=== PATIENT | male | born 1955 | race Caucasian/White ===

== ENCOUNTER 2018-06-11 12:16 | Inpatient (IN) | payer OTHER ==
[2018-06-11] MEDS ORDERED: FUROSEMIDE 40 MG/4 ML VIAL ONE (13:19)
--- NOTE | 2018-06-11 13:41 | RAD REPORT ---
EXAM DESCRIPTION: USExtrem Venous W Compress Bil06/11/2018 1:30 pm CLINICAL HISTORY: Bilateral leg swelling COMPARISON: none FINDINGS: The common femoral, superficial femoral, popliteal and posterior tibial veins bilaterally are compressible and demonstrate augmentation. Doppler demonstrates good flow. IMPRESSION: No evidence of deep venous thrombosis involving either lower extremity.
--- NOTE | 2018-06-11 13:42 | RAD REPORT ---
EXAM DESCRIPTION: US - UPPER EXTREMITY VENOUS UNILATE - 06/11/2018 1:30 pm CLINICAL HISTORY: Right arm swelling COMPARISON: None FINDINGS: Right internal jugular, subclavian, axillary, basilic, brachial, cephalic, radial and ulna r veins demonstrate phasic signal and are compressible. Doppler demonstrates good flow IMPRESSION: No evidence of thrombus involving the right upper extremity
--- NOTE | 2018-06-11 14:13 | RAD REPORT ---
EXAM DESCRIPTION: Tram Single View06/11/2018 1:54 pm CLINICAL HISTORY: Shortness breath COMPARISON: 2017 FINDINGS: The right base is mildly hazy. Lungs are hyperaerated. Left lung appears clear.The heart is normal size IMPRESSION: Right base is mildly hazy which may indicate pneumonia
[2018-06-11 14:27] LABS: Protime INR 0.92
[2018-06-11 14:38] LABS: Absolute Lymphocytes (CBC) 0.7 K/uL (0.7-4.9); Absolute Monocytes 0.9 K/uL (0.1-1.3); Absolute Neutrophil 9.1 K/uL (1.8-8.0); Basophils % 0.3 % (0-1.3); Eosinophils % 1.1 % (0-4.4); Hematocrit 42.3 % (39.6-49.0); Lymphocytes % 6.7 % (15.3-44.8); MCH 29.3 pg (27.0-35.0); MCV 91.6 fL (80-100); Monocytes % 8.5 % (3.3-12.3); RBC Red Blood Cell Count 4.62 M/uL (4.33-5.43)
[2018-06-11] MEDS ORDERED: CEFTRIAXONE/SWI 1gm 1 GM/10 ML SYR ONE (14:39)
[2018-06-11 14:42] LABS: ALT/SGPT 21 U/L (12-78); AST/SGOT 13 U/L (15-37); Albumin 3.5 g/dL (3.4-5.0); Alkaline Phosphatase 76 U/L (45-117); BUN Blood Urea Nitrogen 17 mg/dL (7-18); Bilirubin Direct 0.1 mg/dL (0-0.2); Bilirubin Total 0.3 mg/dL (0.2-1.0); Glucose Level 125 mg/dL (74-106); NT PRO-BNP 102 pg/mL (<125); Potassium 4.4 mmol/L (3.5-5.1); Protein, Total 7.2 g/dL (6.4-8.2); Sodium Level 139 mmol/L (136-145); Troponin (Emerg Dept Use Only) < 0.02 ng/mL (0.0-0.045)
[2018-06-11 14:43] LABS: Bicarbonate 41 mmol/L (21-32)
[2018-06-11 15:01] LABS: Arterial Blood Carboxyhemoglob 2.8 % (0-1.5); Blood Gas Oxyhemoglobin 91.6 % (94-97); Blood O2 Saturation 95.4 % (92-98.5)
--- NOTE | 2018-06-11 15:15 | ER ---
Nurse's Notes [facility] Name: Monster Spear Age: 62 yrs Sex: Male : 1955 Arrival Date: 06/11/2018 Time: 12:27 Bed 19 Private MD: Diagnosis: Pneumonia, unspecified organism;Acute combined systolic (congestive) and diastolic (congestive) heart failure Presentation: 06/11 12:32 Presenting complaint: EMS states: increased shortness of breath, pedal edema and ss fatigue over the past few days, much worse this morning. Denies fever. Pt also reports weight gain of 5 lbs a month/ 6 months. Transition of care: patient was not received from another setting of care. Onset of symptoms was June 11, 2018. Risk Assessment: Do you want to hurt yourself or someone else? Patient reports no desire to harm self or others. Initial Sepsis Screen: Does the patient meet any 2 criteria? RR > 20 per min. HR > 90 bpm. Does the patient have a suspected source of infection? No. Patient's initial sepsis screen is negative. Care prior to arrival: SEE EMS report. 12:32 Method Of Arrival: EMS: [facility] 12:32 Acuity: ANNABELLA 3 ss Historical: - Allergies: 12:35 No Known Allergies; ss - Home Meds: 15:36 finasteride oral oral [Active]; tamsulosin 0.4 mg oral cp24 [Active]; [place] 7.5-325 mg em Oral tab 1 tab every 6 hours [Active]; Xanax 1 mg Oral tab [Active]; tizanidine 4 mg oral tab [Active]; losartan 100 mg oral tab [Active]; Ventolin HFA 90 mcg/actuation Nebulizer HFAA [Active]; prednisone 10 mg Oral tab 1 tab once daily [Active]; Singulair Oral [Active]; aspirin 81 mg oral chew [Active]; - PMHx: 12:35 Anxiety; COPD; ss - PSHx: 12:35 Appendectomy; ss - Immunization history:: Adult Immunizations up to date. - Social history:: Smoking status: Patient uses tobacco products, chewing tobacco. - Ebola Screening: : Patient denies exposure to infectious person Patient denies travel to an Ebola-affected area in the 21 days before illness onset. Screenin:02 Abuse screen: Denies threats or abuse. Nutritional screening: No deficits noted. em Tuberculosis screening: No symptoms or risk factors identified. Fall Risk None identified. Assessment: 12:42 General: Appears in no apparent distress. uncomfortable, Behavior is calm, cooperative. em Pain: Complains of pain in back Pain currently is 6 out of 10 on a pain scale. Neuro: Level of Consciousness is awake, alert, obeys commands, Oriented to person, place, time, situation. Cardiovascular: Denies chest pain, Edema pitting to right upper arm, right forearm, right wrist, left ankle, left foot, right ankle and right foot Rhythm is regular. Respiratory: Airway is patent Respiratory effort is even, unlabored, Respiratory pattern is regular, symmetrical, Breath sounds are diminished bilaterally. the patient has mild shortness of breath. GI: Abdomen is round non-distended, Bowel sounds present X 4 quads. Patient currently denies nausea, vomiting. : No signs and/or symptoms were reported regarding the genitourinary system. EENT: No signs and/or symptoms were reported regarding the EENT system. Derm: Skin is intact, Skin is pink, warm \T\ dry. Musculoskeletal: Capillary refill < 3 seconds, Range of motion: intact in all extremities. 13:00 General: The previous assessment is accurate, call light remains within reach.. ss 13:40 Reassessment: Patient appears in no apparent distress at this time. Patient and/or em family updated on plan of care and expected duration. Pain level reassessed. Patient is alert, oriented x 3, equal unlabored respirations, skin warm/dry/pink. 14:30 Reassessment: Patient appears in no apparent distress at this time. Patient and/or em family updated on plan of care and expected duration. Pain level reassessed. Patient is alert, oriented x 3, equal unlabored respirations, skin warm/dry/pink. request some pain medication for his back. 15:30 Reassessment: Patient appears in no apparent distress at this time. Patient and/or em family updated on plan of care and expected duration. Pain level reassessed. Patient is alert, oriented x 3, equal unlabored respirations, skin warm/dry/pink. RT at bedside setting up BIPAP. 16:22 Reassessment: Patient appears in no apparent distress at this time. Patient and/or em family updated on plan of care and expected duration. Pain level reassessed. Patient is alert, oriented x 3, equal unlabored respirations, skin warm/dry/pink. rates pain 6/10 Patient states feeling better. Patient states symptoms have improved. Vital Signs: 12:35 BP 121 / 72; Pulse 110; Resp 16; Temp 98.0(O); Pulse Ox 95% on 3 lpm NC; Weight 113.4 ss kg; Height 5 ft. 9 in. (175.26 cm); Pain 0/10; 12:35 BP 135 / 76; Pulse 92; Resp 18; Pulse Ox 95% on 2 lpm NC; mh5 13:00 BP 118 / 74; Pulse 74; Resp 20; Pulse Ox 94% on 2 lpm NC; mh5 14:00 BP 162 / 96; Pulse 74; Resp 18; Pulse Ox 96% on 2 lpm NC; mh5 15:07 BP 142 / 83; Pulse 97; Resp 18; Pulse Ox 99% on 2 lpm NC; mh5 16:12 BP 138 / 88; Pulse 102; Resp 20; Pulse Ox 97% on 35% BiPAP; Pain 6/10; em 12:35 Body Mass Index 36.92 (113.40 kg, 175.26 cm) ss ED Course: 12:27 Patient arrived in ED. em 12:28 Berto Armstrong NP is PHCP. pm1 12:28 Getachew Tilley MD is Attending Physician. pm1 12:34 Triage completed. ss 12:35 Arm band placed on right wrist. ss 12:49 Trevon Campo LVN is Primary Nurse. em 13:02 Patient has correct armband on for positive identification. Placed in gown. Bed in low em position. Call light in reach. Side rails up X2. 13:04 EKG done, by lawn technician. reviewed by Getachew Tilley MD. tc 13:31 Extrem Venous W Compression Rob US In Process Unspecified. EDMS 13:31 UPPER EXTREMITY VENOUS UNILATE In Process Unspecified. EDMS 13:53 X-ray completed. Portable x-ray completed in exam room. Patient tolerated procedure ml well. 13:53 XRAY Chest (1 view) In Process Unspecified. EDMS 14:00 No provider procedures requiring assistance completed. Initial lab(s) drawn, by me, em sent to lab. Inserted saline lock: 20 gauge in left forearm, using aseptic technique. Blood collected. 14:45 First set of blood cultures drawn by hi, Second set of blood cultures drawn by hi, by 3 venipuncture 23G to right ac. 15:12 Jadiel Rivera DO is Hospitalizing Provider. pm1 16:07 Repeat lab(s) drawn. by hi, sent to lab. Flu and/or RSV swab sent to lab. 5 16:08 Flu Sent. 5 16:08 Lactate Sent. 5 16:08 Procalcitonin Sent. 5 16:39 Patient admitted, IV remains in place. em Administered Medications: 13:48 Drug: Lasix 40 mg Route: IVP; Site: left forearm; ss 15:00 Follow up: Response: No adverse reaction em 15:05 Drug: Rocephin 1 grams Route: IV; Rate: calculated rate; Site: left forearm; ss 16:10 Follow up: Response: No adverse reaction; IV Status: Completed infusion; IV Intake: 10mlem 15:20 Drug: Xopenex (3) 1.25 mg Route: Inhalation; em 15:57 Drug: SOLU-Medrol 125 mg Route: IVP; Site: left forearm; ss 16:10 Follow up: Response: No adverse reaction em 15:58 Drug: AZITHromycin 500 mg Route: IVPB; Infused Over: 1 hrs; Site: left forearm; em Intake: 16:10 IV: 10ml; Total: 10ml. em Outcome: 15:14 Decision to Hospitalize by Provider. pm1 16:38 Admitted to [facility] accompanied by [facility], via wheelchair, room 408, with oxygen, with em chart, Report called to CHELA Braga 16:38 Condition: good 16:38 Instructed on the need for admit, Demonstrated understanding of follow-up care. 16:52 Patient left the ED. em Signatures: Dispatcher [employer] EDMS Trevon Campo, FIRE LIEUTENANT FIRE LIEUTENANT Alicja Alvarado Shelby, RN RN Ivory Severino, afloat cryptologic manager EKG Ttc Berto Armstrong, JOSE MEATCUTTER pm1 Yancy Hardy [facility] Edith Reid 3 Corrections: (The following items were deleted from the chart) 12:37 12:35 BP 121 / 72; Pulse 110bpm; Resp 16bpm; Pulse Ox 95%; Temp 98.0F Oral; 113.4 kg; ss Height 5 ft. 9 in.; BMI: 36.9; Pain 0/10; ss
--- NOTE | 2018-06-11 15:16 | EDPHYS ---
Physician Documentation [facility] Name: Monster Spear Age: 62 yrs Sex: Male : 1955 Arrival Date: 06/11/2018 Time: 12:27 Bed 19 Private MD: BRITTANY Physician Getachew Tilley HPI: 06/11 12:40 This 62 yrs old Male presents to ER via EMS with complaints of Shortness Of pm1 Breath. 12:40 The patient has shortness of breath at rest. Onset: The symptoms/episode began/occurred pm1 Onset: The symptoms/episode began/occurred 1 week(s) ago. Duration: The symptoms are chronic, are continuous, and are steadily getting worse. Associated signs and symptoms: Pertinent positives: productive cough, Pertinent negatives: chest pain, fever, nausea, vomiting. Severity of symptoms: in the emergency department the symptoms are worse Pain is currently a 0 / 10. The patient has been recently seen by a physician: the patient's primary care provider, Dr. Car with similar presenting complaints, and seen by Dr. Euceda for possible urinary retention. Patient presenting to the ER with complaints of shortness of breath for the past 6 months that has progressively gotten worse over the past week. Patient reports 5 pound weight gain per month over the past 6 months. Hx of COPD and uses 3 L NC at home. Saw his PCP Dr. Car 2 days ago for the same shortness of breath and weight gain and was prescribed Lasix 20 mg PO daily. On the first day of Lasix he urinated fine but yesterday he had some difficulty urinating. Saw Dr Euceda and had an ultrasound yesterday. Bladder was not distended and prostate was normal. Historical: - Allergies: 12:35 No Known Allergies; ss - Home Meds: 15:36 finasteride oral oral [Active]; tamsulosin 0.4 mg oral cp24 [Active]; [place] 7.5-325 mg em Oral tab 1 tab every 6 hours [Active]; Xanax 1 mg Oral tab [Active]; tizanidine 4 mg oral tab [Active]; losartan 100 mg oral tab [Active]; Ventolin HFA 90 mcg/actuation Nebulizer HFAA [Active]; prednisone 10 mg Oral tab 1 tab once daily [Active]; Singulair Oral [Active]; aspirin 81 mg oral chew [Active]; - PMHx: 12:35 Anxiety; COPD; ss - PSHx: 12:35 Appendectomy; ss - Immunization history:: Adult Immunizations up to date. - Social history:: Smoking status: Patient uses tobacco products, chewing tobacco. - Ebola Screening: : Patient denies exposure to infectious person Patient denies travel to an Ebola-affected area in the 21 days before illness onset. ROS: 12:40 Constitutional: Negative for fever, chills, and weight loss, Eyes: Negative for injury, pm1 pain, redness, and discharge, ENT: Negative for injury, pain, and discharge, Neck: Negative for injury, pain, and swelling, Cardiovascular: Negative for chest pain, palpitations, and edema. 12:40 Abdomen/GI: Negative for abdominal pain, nausea, vomiting, diarrhea, and constipation. 12:40 : Negative for injury, bleeding, discharge, and swelling, MS/Extremity: Negative for injury and deformity, Skin: Negative for injury, rash, and discoloration. 12:40 Respiratory: Positive for cough, with white sputum, shortness of breath. 12:40 Back: Positive for chronic low back pain. Patient takes 7.5 hydrocodone prn for pain. Exam: 12:40 Constitutional: This is a well developed, well nourished patient who is awake, alert, pm1 and in no acute distress. Head/Face: Normocephalic, atraumatic. Eyes: Pupils equal round and reactive to light, extra-ocular motions intact. Lids and lashes normal. Conjunctiva and sclera are non-icteric and not injected. Cornea within normal limits. Periorbital areas with no swelling, redness, or edema. ENT: Nares patent. No nasal discharge, no septal abnormalities noted. Tympanic membranes are normal and external auditory canals are clear. Oropharynx with no redness, swelling, or masses, exudates, or evidence of obstruction, uvula midline. Mucous membranes moist. Neck: Trachea midline, no thyromegaly or masses palpated, and no cervical lymphadenopathy. Supple, full range of motion without nuchal rigidity, or vertebral point tenderness. No Meningismus. Chest/axilla: Normal chest wall appearance and motion. Nontender with no deformity. No lesions are appreciated. Abdomen/GI: Soft, non-tender, with normal bowel sounds. No distension or tympany. No guarding or rebound. No evidence of tenderness throughout. 12:40 Back: No spinal tenderness. No costovertebral tenderness. Full range of motion. Skin: Warm, dry with normal turgor. Normal color with no rashes, no lesions, and no evidence of cellulitis. MS/ Extremity: Pulses equal, no cyanosis. Neurovascular intact. Full, normal range of motion. Neuro: Awake and alert, GCS 15, oriented to person, place, time, and situation. Cranial nerves II-XII grossly intact. Motor strength 5/5 in all extremities. Sensory grossly intact. Cerebellar exam normal. Normal gait. 12:40 Cardiovascular: Rate: normal, Rhythm: regular, Pulses: no pulse deficits are appreciated, Heart sounds: normal, Edema: 2+ edema to level of right upper arm, right forearm, left midcalf and right midcalf. 12:40 Respiratory: the patient does not display signs of respiratory distress, Breath sounds: decreased breath sounds, are located in both bases. Vital Signs: 12:35 BP 121 / 72; Pulse 110; Resp 16; Temp 98.0(O); Pulse Ox 95% on 3 lpm NC; Weight 113.4 ss kg; Height 5 ft. 9 in. (175.26 cm); Pain 0/10; 12:35 BP 135 / 76; Pulse 92; Resp 18; Pulse Ox 95% on 2 lpm NC; mh5 13:00 BP 118 / 74; Pulse 74; Resp 20; Pulse Ox 94% on 2 lpm NC; mh5 14:00 BP 162 / 96; Pulse 74; Resp 18; Pulse Ox 96% on 2 lpm NC; mh5 15:07 BP 142 / 83; Pulse 97; Resp 18; Pulse Ox 99% on 2 lpm NC; mh5 16:12 BP 138 / 88; Pulse 102; Resp 20; Pulse Ox 97% on 35% BiPAP; Pain 6/10; em 12:35 Body Mass Index 36.92 (113.40 kg, 175.26 cm) ss MDM: 12:28 Patient medically screened. pm1 15:08 Physician consultation: Getachew Tilley MD Reviewed ABG results - Recommended bipap, pm1 breathing treatments, steroids, and antibiotics. 15:11 Data reviewed: vital signs. Data interpreted: Pulse oximetry: on room air is 99 %. pm1 Interpretation: normal. Counseling: I had a detailed discussion with the patient and/or guardian regarding: the historical points, exam findings, and any diagnostic results supporting the discharge/admit diagnosis, lab results, radiology results, the need for further work-up and treatment in the hospital. 15:30 Physician consultation: Jadiel Rivera DO was called at 15:30, was contacted at 15:30, pm1 regarding admission, patient's condition, in the emergency department to see patient at 15:30. 06/11 12:36 Order name: Basic Metabolic Panel; Complete Time: 15:10 pm1 06/11 12:36 Order name: CBC with Diff; Complete Time: 15:10 pm1 06/11 12:36 Order name: LFT's; Complete Time: 15:10 pm1 06/11 12:36 Order name: Magnesium; Complete Time: 15:10 pm1 06/11 12:36 Order name: NT PRO-BNP; Complete Time: 15:10 pm1 06/11 12:36 Order name: PT-INR; Complete Time: 14:43 pm1 06/11 12:36 Order name: Troponin (emerg Dept Use Only); Complete Time: 15:10 pm1 06/11 14:19 Order name: Blood Culture Adult (2) pm1 06/11 14:43 Order name: ABG; Complete Time: 16:16 pm1 06/11 15:29 Order name: Procalcitonin pm1 06/11 15:29 Order name: Lactate pm1 06/11 15:33 Order name: Flu pm1 06/11 16:34 Order name: Blood Culture [facility] 06/11 16:44 Order name: T4 Free EDWI 06/11 12:36 Order name: XRAY Chest (1 view); Complete Time: 14:18 pm1 06/11 12:36 Order name: EKG; Complete Time: 12:38 pm1 06/11 12:36 Order name: Cardiac monitoring; Complete Time: 14:22 pm1 06/11 12:36 Order name: EKG - Nurse/Tech; Complete Time: 12:49 pm1 06/11 12:36 Order name: IV Saline Lock; Complete Time: 12:49 pm1 06/11 12:36 Order name: Labs collected and sent; Complete Time: 12:49 pm1 06/11 12:39 Order name: Extrem Venous W Compression Rob US; Complete Time: 14:18 pm1 06/11 12:43 Order name: UPPER EXTREMITY VENOUS UNILATE; Complete Time: 14:18 EDWI 06/11 15:08 Order name: BIPAP pm1 06/11 16:44 Order name: Thyroid Stimulating Hormone EDWI 06/11 12:36 Order name: O2 Per Protocol; Complete Time: 12:49 pm1 06/11 12:36 Order name: O2 Sat Monitoring; Complete Time: 12:49 pm1 06/11 12:36 Order name: Urine Dipstick-Ancillary (obtain specimen); Complete Time: 16:14 pm1 Administered Medications: 13:48 Drug: Lasix 40 mg Route: IVP; Site: left forearm; ss 15:00 Follow up: Response: No adverse reaction em 15:05 Drug: Rocephin 1 grams Route: IV; Rate: calculated rate; Site: left forearm; ss 16:10 Follow up: Response: No adverse reaction; IV Status: Completed infusion; IV Intake: 10mlem 15:20 Drug: Xopenex (3) 1.25 mg Route: Inhalation; em 15:57 Drug: SOLU-Medrol 125 mg Route: IVP; Site: left forearm; ss 16:10 Follow up: Response: No adverse reaction em 15:58 Drug: AZITHromycin 500 mg Route: IVPB; Infused Over: 1 hrs; Site: left forearm; em Disposition: 06/11/18 15:14 Hospitalization ordered by Jadiel Rivera for Inpatient Admission. Preliminary diagnosis are Acute combined systolic (congestive) and diastolic (congestive) heart failure, Pneumonia, unspecified organism. - Bed requested for Telemetry/MedSurg (Inpatient). - Status is Inpatient Admission. em - Condition is Stable. - Problem is new. - Symptoms have improved. UTI on Admission? No Addendum: 06/14/2018 06:55 Co-signature as Attending Physician, Getachew Tilley MD I agree with the assessment and c duffy plan of care. Signatures: Dispatcher [employer] Soraya Connors, RN Getachew Burdick MD MD cha Munoz, Edgar, PAINTER AND PAPERHANGER APPRENTICE PAINTER AND PAPERHANGER APPRENTICE em Shanel Davis RN RN ss Marinas, Patrick, GOAL UMPIRE GOAL UMPIRE pm1 Corrections: (The following items were deleted from the chart) 06/11 12:43 12:40 Extremity Venous Uni [email or web address] ordered. EDMS EDMS 16:04 15:14 Hospitalization Ordered by Jadiel Rivera DO for Inpatient Admission. Preliminary dw diagnosis is Acute combined systolic (congestive) and diastolic (congestive) heart failurePneumonia, unspecified organism. Bed requested for Telemetry/MedSurg (Inpatient). Status is Inpatient Admission. Condition is Stable. Problem is new. Symptoms have improved. UTI on Admission? No. pm1 16:52 16:04 06/11/2018 15:14 Hospitalization Ordered by Jadiel Rivera DO for Inpatient em Admission. Preliminary diagnosis is Acute combined systolic (congestive) and diastolic (congestive) heart failurePneumonia, unspecified organism. Bed requested for Telemetry/MedSurg (Inpatient). Status is Inpatient Admission. Condition is Stable. Problem is new. Symptoms have improved. UTI on Admission? No. dw
[2018-06-11] MEDS ORDERED: HYDROCODONE/APAP 10/325 TAB ONE (15:26)
[2018-06-11] MEDS ORDERED: LEVALBUTEROL 1.25 MG/3 ML NEB ONE (15:28)
[2018-06-11] MEDS ORDERED: ACETAMINOPHEN 500 MG TAB PO PRN (15:50)
[2018-06-11] MEDS ORDERED: ONDANSETRON 4 MG/2 ML VIAL IV PRN (15:50)
[2018-06-11] MEDS ORDERED: HYDRALAZINE HCL 20 MG/ML VIAL IV PRN (15:50)
[2018-06-11] MEDS ORDERED: ALPRAZOLAM 0.5 MG TABLET PO PRN (15:50)
[2018-06-11] MEDS ORDERED: METHYLPREDNISOLONE 125 MG INJ ONE (15:53)
[2018-06-11] MEDS ORDERED: AZITHROMYCIN 500 MG/250 ML BAG ONE (15:54)
--- NOTE | 2018-06-11 16:07 | P.HP ---
Certification for Inpatient Patient admitted to: Inpatient With expected LOS: >2 Midnights Patient will require the following post-hospital care: None Practitioner: I am a practitioner with admitting privileges, knowledge of patient current condition, hospital course, and medical plan of care. Services: Services provided to patient in accordance with Admission requirements found in Title 42 Section 412.3 of the Code of Federal Regulations Patient History Date of Service: 06/11/18 Primary Care Provider: Dr. Sexton; Pulmonary-Dr. Callahan; Card-Dr. Robert, Urology-Dr. Euceda Reason for admission: Shortness of breath, edema History of Present Illness: 62-year-old male presented to the emergency room with increasing shortness of breath and edema the extremities. Patient has reported increasing shortness of breath over the last several days. He also reports increasing edema for the last week. He saw his PCP earlier in the week. He was given Lasix. He saw some improvement. He also saw his urologist the other day. He was started on medication for BPH. Increasing edema, weight gain, and shortness of breath persisted. Patient came to the ER for further evaluation. Patient with history of COPD-steroid dependent, BPH, hypertension, obstructive sleep apnea non compliant with CPAP, back pain, anxiety. In the ER patient evaluated. Patient was found to be hypercapnic. Bicarb is 41. White count 11, hemoglobin 13.5, sodium 139, potassium 4.4, platelet count 161. Chest x-ray showed possible middle lobe pneumonia. Edema to the lower extremities sores noted. Troponin less than 0.02. Patient given Lasix in the emergency room. Venous Doppler to the lower extremities bilateral unremarkable. Patient admitted for further evaluation. When I saw the patient ER, he was on BiPAP. He appeared comfortable. Patient reports that he still dips tobacco. He is non compliant with his CPAP machine. Patient takes multiple medications. Allergies No Known Allergies Allergy (Unverified 04/24/17 18:11) Home medications list reviewed: Yes Home Medications: ALPRAZolam [Alprazolam] 1 tab PO BID 04/24/17 Fluticasone [Flonase 50MCG Nasal [place]*] 1 puff IH DAILY 04/24/17 Hydrocodone/Acetaminophen [Hydrocodone-Acetamin 10-325 mg] 1 tab PO Q6H PRN 09/ 22/17 Losartan Potassium 1 tab PO DAILY 04/24/17 Montelukast [Singulair*] 1 tab PO DAILY 04/24/17 Doxycycline Hyclate [Doryx] 500 mg PO DAILY #10 tablet. 04/29/17 predniSONE [Prednisone*] 10 mg PO BID #12 tab 04/29/17 Albuterol Sulfate [Ventolin Hfa] 2 puff IH DAILY PRN 07/20/17 Budesonide/Formoterol Fumarate [Symbicort 160-4.5 Mcg Inhaler] 2 puff IH BID Gabapentin [Neurontin*] 100 mg PO BID 07/20/17 Roflumilast [Daliresp*] 500 mcg PO DAILY 07/20/17 Temazepam [Restoril*] 15 mg PO BEDTIME PRN PRN #15 cap 07/22/17 - Past Medical/Surgical History Diabetic: No -: Hypertension -: COPD, steroid dependent -: Anxiety -: Chronic back pain -: Obstructive sleep apnea, non compliant CPAP -: Seasonal allergies -: BPH -: Appendectomy Psychosocial/ Personal History: Patient is . He has children. He is disabled. - Family History Family History: Reviewed- Non-Contributory - Social History Smoking Status: Heavy Tobacco smoker (>10 cigarettes/day) Counseled patient to stop smoking for: less than 10 minutes Smoking therapy provided: Yes Patient receptive to therapy: Yes Alcohol use: No CD- Drugs: No Caffeine use: Yes Place of Residence: Home Review of Systems General: Weakness, Malaise ENT: Unremarkable Respiratory: Shortness of Breath, SOB with Excertion, As per HPI Cardiovascular: Edema, As per HPI Gastrointestinal: Unremarkable Genitourinary: Unremarkable Musculoskeletal: Unremarkable Integumentary: Unremarkable Neurological: Weakness, As per HPI Lymphatics: Unremarkable Physical Examination - Physical Exam General: Alert, In no apparent distress, Oriented x3, Cooperative HEENT: Atraumatic, Normocephalic, PERRLA, Mucous membr. moist/pink Neck: Supple Respiratory: Diminished (To the bases), Expiratory wheezes (Bilateral) Cardiovascular: Normal pulses, Regular rate/rhythm Gastrointestinal: Normal bowel sounds, Soft and benign, Non-distended, No tenderness, No masses, No rebound, No guarding, Other (Obesity) Musculoskeletal: No erythema, No tenderness, No warmth Integumentary: Tenderness/swelling (1 to 2+ pitting edema to the lower extremities bilateral) Neurological: Normal speech, Normal strength at 5/5 x4 extr, Normal tone, Normal affect - Studies Laboratory Data (last 24 hrs) 06/11/18 13:40: PT 10.8, INR 0.92 06/11/18 13:40: WBC 11.0 H, Hgb 13.5 L, Hct 42.3, Plt Count 161 06/11/18 13:40: Sodium 139, Potassium 4.4, BUN 17, Creatinine 0.80, Glucose 125 H, Magnesium 2.0, Total Bilirubin 0.3, AST 13 L, ALT 21, Alkaline Phosphatase 76 Assessment and Plan - Plan Impression: Shortness of breath, edema to the lower extremities secondary to suspected acute on chronic diastolic CHF complicated with right middle lobe pneumonia and COPD exacerbation with hypercapnia COPD exacerbation on chronic steroids Hypertension Obstructive sleep apnea, non compliant with CPAP Tobacco abuse BPH Obesity Plan: Shortness of breath, edema to the lower extremities secondary to suspected acute on chronic diastolic CHF complicated with right middle lobe pneumonia and COPD exacerbation with hypercapnia: Patient will be admitted. Will maintain sats above 90%. Patient currently on BiPAP due to hypercapnia. Will wean off BiPAP. Patient will likely require CPAP at night. Will provide oral steroids. Will continue with COPD medication. Will start Rocephin and Zithromax for pneumonia. Will check echocardiogram to evaluate for CHF. Will continue with IV Lasix 20 mg twice daily. Cardiology and pulmonology consulted for further recommendation. Will continue with DVT prophylaxis. COPD exacerbation on chronic steroids: Will increase oral steroids for COPD exacerbation. Will start Brovana. Will continue with Atrovent and albuterol. Pulmonology consulted for further recommendation. Hypertension: Will start IV medication as needed. Will need to obtain and verify home medication. Will monitor and adjust appropriately. Obstructive sleep apnea, non compliant with CPAP: Patient currently on BiPAP. Compliance with CPAP addressed in detail. This can be further addressed by pulmonology. Tobacco abuse: Tobacco cessation addressed. Patient dips on a regular basis. BPH: Patient recently seen by urology. Will continue with Flomax 0.4 mg daily and finasteride 5 mg daily. Obesity: Will evaluate BMI. Will address lifestyle modification education. Discharge Plan: Home Plan to discharge in: 72 Hours - Advance Directives Does patient have a Living Will: No Does patient have a Durable POA for Healthcare: No - Code Status/Comfort Care Code Status Assessed: Yes (Patient full code.) Time Spent Managing Pts Care (In Minutes): 55
[2018-06-11 16:44] LABS: Thyroid Stimulating Hormone 0.545 uIU/mL (0.360-3.740)
--- NOTE | 2018-06-11 18:46 | EKG ---
Test Date: 2018-06-11 Test Time: 12:42:26 [employer] C[employer] Mixer: HITESH MEASUREMENT RESULTS: Intervals: Rate: 98 [place]: 112 QRSD: 78 QT: 338 QTc: 431 [place]: P: [place]: 112 QRS: 80 T: 66 INTERPRETIVE STATEMENTS: Sinus rhythm with occasional premature ventricular complexes Otherwise normal ECG Compared to ECG 07/27/2017 13:54:44 Ventricular premature complex(es) now present Sinus tachycardia no longer present Atrial premature complex(es) no longer present Electronically Signed On 06-11-18 18:44:49 [employer] CL[employer] by Cricket King
[2018-06-11] MEDS: ENOXAPARIN 40 MG/0.4 ML SQ SCH (18:51)
[2018-06-11] MEDS: FUROSEMIDE 20 MG/ 2ML VIAL IV SCH (18:51)
[2018-06-11] MEDS: PNEUMOCOCCAL VACCINE 0.5 ML IMVAC ONE (19:00)
[2018-06-11 20:03] LABS: Urine Appearance CLEAR; Urine Bilirubin NEGATIVE (NEG); Urine Blood 2+ (NEG); Urine Color YELLOW; Urine Glucose NEGATIVE (NEG); Urine Protein NEGATIVE (NEG); Urine Urobilinogen 0.2 mg/dL (0.2-1.0)
[2018-06-11] MEDS: FLUTICASONE 50MCG NASAL SPRAY NAS SCH (20:10)
[2018-06-11] MEDS: ARFORMOTEROL TARTRATE 15 MCG/2 ML VIAL.NEB NEB SCH (20:13)
[2018-06-11] MEDS ORDERED: ALBUTEROL INHALER 60 PUFF/8 GM IH PRN (20:33)
[2018-06-11 20:50] LABS: Urine Microscopic Reflex ORDER UMIC
[2018-06-11 20:55] LABS: Urine Bacteria <20 /HPF (NONE SEEN)
[2018-06-11 20:56] LABS: Urine Culture Reflex Order NOT NEEDED
[2018-06-11] MEDS: HYDROCODONE/APAP 7.5/325 MG TAB PO SCH (20:56)
[2018-06-11] MEDS ORDERED: FINASTERIDE 5 MG TAB PO SCH (21:00)
[2018-06-11] MEDS ORDERED: TAMSULOSIN 0.4 MG SR CAP PO SCH (21:00)
[2018-06-11] MEDS ORDERED: predniSONE 20 MG TAB PO SCH (21:00)
[2018-06-11] MEDS ORDERED: MONTELUKAST 10 MG TAB PO SCH (21:00)
[2018-06-12 00:03] LABS: CKMB Creatine Kinase MB 1.4 ng/mL (0.3-3.6); Creatine Phosphokinase 52 U/L (39-308); Troponin I < 0.02 ng/mL (0.0-0.045)
[2018-06-12] MEDS: GABAPENTIN 100 MG CAP PO PRN (03:32)
[2018-06-12] MEDS: PANTOPRAZOLE 40MG TABLET PO SCH (05:38)
[2018-06-12 06:17] LABS: Absolute Lymphocytes (CBC) 0.3 K/uL (0.7-4.9); Absolute Monocytes 0.1 K/uL (0.1-1.3); Absolute Neutrophil 6.8 K/uL (1.8-8.0); Basophils % 0.3 % (0-1.3); Hematocrit 38.5 % (39.6-49.0); Lymphocytes % 4.7 % (15.3-44.8); MCH 30.1 pg (27.0-35.0); MCV 90.8 fL (80-100); MPV 9.5 fL (7.6-11.3); Monocytes % 1.8 % (3.3-12.3); RBC Red Blood Cell Count 4.23 M/uL (4.33-5.43)
[2018-06-12 06:38] LABS: CKMB Creatine Kinase MB 1.5 ng/mL (0.3-3.6); Creatine Phosphokinase 52 U/L (39-308); Troponin I < 0.02 ng/mL (0.0-0.045)
[2018-06-12 06:40] LABS: BUN Blood Urea Nitrogen 17 mg/dL (7-18); Bicarbonate 41 mmol/L (21-32); Glucose Level 172 mg/dL (74-106); HDL Cholesterol 66 mg/dL (40-60); LDL Cholesterol, Calculated 101 (<130); Magnesium 2.3 mg/dL (1.8-2.4); Potassium 4.8 mmol/L (3.5-5.1); Sodium Level 136 mmol/L (136-145)
[2018-06-12] MEDS: ARFORMOTEROL TARTRATE 15 MCG/2 ML VIAL.NEB NEB SCH ×2 (07:28→20:40)
[2018-06-12] MEDS: HYDROCODONE/APAP 7.5/325 MG TAB PO SCH ×4 (08:19→20:15)
[2018-06-12] MEDS: FUROSEMIDE 20 MG/ 2ML VIAL IV SCH ×2 (08:19→16:38)
[2018-06-12] MEDS: CEFTRIAXONE/SWI 1gm 1 GM/10 ML SYR IV SCH (08:19)
[2018-06-12] MEDS: CETIRIZINE HCL 5 MG TABLET PO SCH (08:20)
[2018-06-12] MEDS: TAMSULOSIN 0.4 MG SR CAP PO SCH (08:20)
[2018-06-12] MEDS: FINASTERIDE 5 MG TAB PO SCH (08:21)
[2018-06-12] MEDS: LOSARTAN POTASSIUM 50 MG TABLET PO SCH (08:21)
[2018-06-12] MEDS: predniSONE 20 MG TAB PO SCH (08:21)
[2018-06-12] MEDS: FLUTICASONE 50MCG NASAL SPRAY NAS SCH ×2 (08:22→20:21)
[2018-06-12] MEDS: ASPIRIN EC 81 MG TAB PO SCH (08:22)
[2018-06-12] MEDS: MONTELUKAST 10 MG TAB PO SCH (08:22)
[2018-06-12] MEDS: ROFLUMILAST 500 MCG TABLET PO SCH (08:22)
[2018-06-12] MEDS: PNEUMOCOCCAL VACCINE 0.5 ML IMVAC ONE (08:33)
[2018-06-12] MEDS: AZITHROMYCIN IV 250 MG in NA CHLORIDE 0.9% 250 ML IVPB SCH (08:36)
[2018-06-12] MEDS ORDERED: TORSEMIDE 20 MG TAB PO SCH (09:00)
[2018-06-12] MEDS ORDERED: predniSONE 10 MG TAB PO SCH (09:00)
[2018-06-12] MEDS ORDERED: HOME MED 1 EA UNK (Cetirizine Hcl [Zyrtec] 10 MG) PO SCH (09:00)
[2018-06-12] MEDS ORDERED: HOME MED 1 EA UNK (Losartan Potassium [Losartan Potassium] 100 MG) PO SCH (09:00)
[2018-06-12] MEDS ORDERED: ASPIRIN EC 81 MG TAB PO SCH (09:00)
[2018-06-12] MEDS ORDERED: ROFLUMILAST 500 MCG TABLET PO SCH (09:00)
--- NOTE | 2018-06-12 10:00 | RAD REPORT ---
EXAM DESCRIPTION: Tram Pa And Lat (2 Views)06/12/2018 6:43 am CLINICAL HISTORY: Cough COMPARISON: June 11, 2018 FINDINGS: Right basilar opacities have mostly resolved. Lungs remain hyperaerated. The heart is normal size IMPRESSION: Right pneumonia appears mostly resolved
[2018-06-12] MEDS: ALPRAZOLAM 1 MG TABLET PO PRN ×2 (11:42→21:44)
[2018-06-12] MEDS: TIZANIDINE 4 MG TABLET PO PRN (11:43)
--- NOTE | 2018-06-12 11:56 | P.PN ---
Subjective Date of Service: 06/12/18 Primary Care Provider: Dr. Sexton; Pulmonary-Dr. Callahan; Card-Dr. Robert, Urology-Dr. Euceda Chief Complaint: Shortness of breath, edema Subjective: Improving (Patient feels better. Patient off BiPAP this morning. Edema to the lower extremities improved.) Physical Examination - Vital Signs Temperature: 99.0 F Blood Pressure: 137/79 Pulse: 98 Respirations: 20 Pulse Ox (%): 95 - Physical Exam General: Alert, In no apparent distress, Oriented x3, Cooperative HEENT: Atraumatic Neck: Supple Respiratory: Expiratory wheezes (Bilateral), Other (Improved aeration but still tight.) Cardiovascular: Regular rate/rhythm Gastrointestinal: Normal bowel sounds, Soft and benign, Non-distended, No tenderness, No masses, No rebound, No guarding Musculoskeletal: No erythema, No tenderness, No warmth Integumentary: Tenderness/swelling (Lower extremity edema improved) Neurological: Normal speech, Normal strength at 5/5 x4 extr, Normal tone, Normal affect - Studies Laboratory Data (last 24 hrs) 06/11/18 13:40: PT 10.8, INR 0.92 06/11/18 13:40: WBC 11.0 H, Hgb 13.5 L, Hct 42.3, Plt Count 161 06/11/18 13:40: Sodium 139, Potassium 4.4, BUN 17, Creatinine 0.80, Glucose 125 H, Magnesium 2.0, Total Bilirubin 0.3, AST 13 L, ALT 21, Alkaline Phosphatase 76 Medications List Reviewed: Yes Assessment & Plan Discharge Plan: Home Plan to discharge in: 24 Hours Physician Review Additional Text: Impression: Shortness of breath, edema to the lower extremities secondary to suspected acute on chronic diastolic CHF complicated with right middle lobe pneumonia and COPD exacerbation with hypercapnia COPD exacerbation on chronic steroids Hypertension Obstructive sleep apnea, non compliant with CPAP Tobacco abuse BPH Obesity Plan: Shortness of breath, edema to the lower extremities secondary to suspected acute on chronic diastolic CHF complicated with right middle lobe pneumonia and COPD exacerbation with hypercapnia: Patient patient appears improved. Patient off BiPAP this morning. Will continue to wean off oxygen. Continue with diuresis. Patient on Rocephin and Zithromax to cover for pneumonia. X-ray shows improvement. Will ambulate patient. Await further recommendations from cardiology and pulmonology. Anticipate discharge within the next 1-2 days. COPD exacerbation on chronic steroids and oxygen dependent: Will continue with oral steroids for COPD exacerbation. Will continue with COPD medication. Patient oxygen-dependent along with chronic steroids. Pulmonology consulted. Anticipate discharge in the next 1-2 days. Hypertension: Will continue with home medication-losartan. Will monitor and address appropriately. Obstructive sleep apnea, non compliant with CPAP: Patient to be weaned off BiPAP. Patient may require CPAP at night. Compliance with CPAP addressed in detail. This can be further addressed by pulmonology. Tobacco abuse: Tobacco cessation addressed. Patient dips on a regular basis. BPH: Patient recently seen by urology. Will continue with Flomax 0.4 mg daily and finasteride 5 mg daily. Obesity: Will evaluate BMI. Will address lifestyle modification education. Time Spent Managing Pts Care (In Minutes): 55
[2018-06-12] MEDS: ENOXAPARIN 40 MG/0.4 ML SQ SCH (16:38)
[2018-06-12] MEDS: predniSONE 10 MG TAB PO SCH (20:14)
[2018-06-12] MEDS: IPRATROPIUM BROM 0.5MG/2.5ML NEB PRN (20:40)
[2018-06-13 07:02] LABS: Absolute Lymphocytes (CBC) 0.8 K/uL (0.7-4.9); Absolute Monocytes 0.6 K/uL (0.1-1.3); Absolute Neutrophil 7.9 K/uL (1.8-8.0); Basophils % 0.1 % (0-1.3); Eosinophils % 0.1 % (0-4.4); Hematocrit 37.2 % (39.6-49.0); Lymphocytes % 8.5 % (15.3-44.8); MCH 29.7 pg (27.0-35.0); MCV 90.8 fL (80-100); MPV 9.7 fL (7.6-11.3); Monocytes % 6.6 % (3.3-12.3)
[2018-06-13 07:19] LABS: BUN Blood Urea Nitrogen 25 mg/dL (7-18); Bicarbonate 40 mmol/L (21-32); Glucose Level 132 mg/dL (74-106); Magnesium 2.6 mg/dL (1.8-2.4); Potassium 4.3 mmol/L (3.5-5.1); Sodium Level 139 mmol/L (136-145)
[2018-06-13] MEDS: PANTOPRAZOLE 40MG TABLET PO SCH (07:37)
[2018-06-13] MEDS: HYDROCODONE/APAP 7.5/325 MG TAB PO SCH ×4 (09:00→20:16)
[2018-06-13] MEDS: FLUTICASONE 50MCG NASAL SPRAY NAS SCH ×2 (09:00→20:17)
[2018-06-13] MEDS: ARFORMOTEROL TARTRATE 15 MCG/2 ML VIAL.NEB NEB SCH ×2 (09:05→20:23)
[2018-06-13] MEDS: IPRATROPIUM BROM 0.5MG/2.5ML NEB PRN (09:05)
[2018-06-13] MEDS: LOSARTAN POTASSIUM 50 MG TABLET PO SCH (09:28)
[2018-06-13] MEDS: TAMSULOSIN 0.4 MG SR CAP PO SCH (09:28)
[2018-06-13] MEDS: CETIRIZINE HCL 5 MG TABLET PO SCH (09:28)
[2018-06-13] MEDS: ASPIRIN EC 81 MG TAB PO SCH (09:29)
[2018-06-13] MEDS: FINASTERIDE 5 MG TAB PO SCH (09:29)
[2018-06-13] MEDS: predniSONE 20 MG TAB PO SCH (09:30)
[2018-06-13] MEDS: FUROSEMIDE 20 MG/ 2ML VIAL IV SCH ×2 (09:30→17:07)
[2018-06-13] MEDS: CEFTRIAXONE/SWI 1gm 1 GM/10 ML SYR IV SCH (09:31)
[2018-06-13] MEDS: AZITHROMYCIN IV 250 MG in NA CHLORIDE 0.9% 250 ML IVPB SCH (09:39)
[2018-06-13] MEDS: MONTELUKAST 10 MG TAB PO SCH (09:40)
[2018-06-13] MEDS: ALPRAZOLAM 1 MG TABLET PO PRN ×2 (11:21→22:17)
--- NOTE | 2018-06-13 12:37 | P.PN ---
Subjective Date of Service: 06/13/18 Primary Care Provider: Dr. Sexton; Pulmonary-Dr. Callahan; Card-Dr. Robert, Urology-Dr. Euceda Chief Complaint: Hypoxic hypercapnic respiratory failure Patient is very agitated upset he has been the swelling gained weight returned his BiPAP admitted with hypoxic hypercapnic respiratory failure no evidence of sepsis chest x-ray has cleared Review of Systems General: Weakness Respiratory: Cough, Shortness of Breath Cardiovascular: Edema Physical Examination - Vital Signs Temperature: 98.6 F Blood Pressure: 109/64 Pulse: 90 Respirations: 18 Pulse Ox (%): 97 - Physical Exam General: Alert, Oriented x3 Respiratory: Expiratory wheezes Cardiovascular: No edema, Normal S1 S2, Edema Gastrointestinal: Normal bowel sounds, Soft and benign - Studies Medications List Reviewed: Yes Assessment & Plan - Problems (Diagnosis) (1) Chronic respiratory failure Current Visit: No Status: Acute Plan: Patient is 62 years of age admitted with the possibly acute on chronic respiratory failure he was prescribed a noninvasive vent the at the last admission and he returned his noninvasive ventilator is quite possible he has sleep apnea patient is at risk is obese does not want to have a sleep study done continue with bronchodilators I have added spironolactone and BiPAP ran arrange for him to have a noninvasive vent setup again Qualifiers: Respiratory failure complication: hypoxia and hypercapnia Qualified Code(s) : J96.11 - Chronic respiratory failure with hypoxia; J96.12 - Chronic respiratory failure with hypercapnia Physician Review Additional Text: Impression: Shortness of breath, edema to the lower extremities secondary to suspected acute on chronic diastolic CHF complicated with right middle lobe pneumonia and COPD exacerbation with hypercapnia COPD exacerbation on chronic steroids Hypertension Obstructive sleep apnea, non compliant with CPAP Tobacco abuse BPH Obesity Plan: Shortness of breath, edema to the lower extremities secondary to suspected acute on chronic diastolic CHF complicated with right middle lobe pneumonia and COPD exacerbation with hypercapnia: Patient patient appears improved. Patient off BiPAP this morning. Will continue to wean off oxygen. Continue with diuresis. Patient on Rocephin and Zithromax to cover for pneumonia. X-ray shows improvement. Will ambulate patient. Await further recommendations from cardiology and pulmonology. Anticipate discharge within the next 1-2 days. COPD exacerbation on chronic steroids and oxygen dependent: Will continue with oral steroids for COPD exacerbation. Will continue with COPD medication. Patient oxygen-dependent along with chronic steroids. Pulmonology consulted. Anticipate discharge in the next 1-2 days. Hypertension: Will continue with home medication-losartan. Will monitor and address appropriately. Obstructive sleep apnea, non compliant with CPAP: Patient to be weaned off BiPAP. Patient may require CPAP at night. Compliance with CPAP addressed in detail. This can be further addressed by pulmonology. Tobacco abuse: Tobacco cessation addressed. Patient dips on a regular basis. BPH: Patient recently seen by urology. Will continue with Flomax 0.4 mg daily and finasteride 5 mg daily. Obesity: Will evaluate BMI. Will address lifestyle modification education.
[2018-06-13] MEDS: SPIRONOLACTONE 25 MG TABLET PO SCH ×2 (13:11→20:15)
[2018-06-13 14:38] LABS: Arterial Blood Carboxyhemoglob 1.6 % (0-1.5); Blood Gas Oxyhemoglobin 70.4 % (94-97); Blood O2 Saturation 72.2 % (92-98.5)
[2018-06-13] MEDS: ROFLUMILAST 500 MCG TABLET PO SCH (16:03)
[2018-06-13] MEDS: ENOXAPARIN 40 MG/0.4 ML SQ SCH (17:06)
[2018-06-13] MEDS: predniSONE 10 MG TAB PO SCH (20:16)
--- NOTE | 2018-06-13 22:17 | CON ---
Date of Consultation: 06/11/2018 Reason For Consultation: CHF. History Of Present Illness: Mr. Spear is a 62-year-old white male without any significant past c ardiac history as we know. He has a history supposedly of COPD, anxiety, BPH, neuropathy, and hypert ension. He has been told he has congestive heart failure. He came in with a right base pneumonia. Ejection fraction in April 2018 was normal with decreased left ventricular compliance. He came i n with a pO2 of 82, his pCO2 was 92 with a pH of 7.29 consistent with COPD exacerbation, respiratory acidosis. No chest pain reported. No PND, orthopnea, pedal edema, palpitations, or syncope. He is alert. Allergies: NONE. Review of Systems: Negative. Social History: Positive for tobacco. Family History: Positive for heart disease. Medications: At home include multiple inhalers, Flomax, Demadex, Deltasone, Xanax, aspirin, finaster emily, Neurontin, losartan, and Singulair. Physical Examination: General: He was in mild respiratory distress. Sinus rhythm. Vital Signs: Stable. Afebrile. HEENT: Negative. Neck: Supple with no bruit. Chest: Clear to auscultation and percussion. Cardiac: Exam revealed a regular rhythm and rate without any murmurs, gallops, or rubs. Abdomen: Benign. Extremities: Revealed no clubbing, cyanosis, or edema. Diagnostic Data: Normal from a cardiac standpoint. The rest of it were stated above. EKG showed no nspecific changes. Impression And Plan: 1.I think Mr. Spear's symptoms are secondary to chronic obstructive pulmonary disease exacerbati on, not congestive heart failure. 2.Pneumonia. 3.Chronic diastolic congestive heart failure with an ejection fraction that was normal in April 2018. No need to repeat any blood work. Continuing his home medications including the Demadex and h is inhalers is reasonable. 4.Anxiety. 5.Benign prostatic hyperplasia. 6.Neuropathy. 7.Hypertension, well controlled. I will continue to follow the patient with Dr. Rivera. MAMI/JENARO Voice ID: [id number] Report ID: [id number]
[2018-06-14] MEDS: PANTOPRAZOLE 40MG TABLET PO SCH (05:23)
[2018-06-14 06:20] LABS: Absolute Lymphocytes (CBC) 0.9 K/uL (0.7-4.9); Absolute Monocytes 0.7 K/uL (0.1-1.3); Absolute Neutrophil 6.5 K/uL (1.8-8.0); Basophils % 0.3 % (0-1.3); Eosinophils % 0.3 % (0-4.4); Hematocrit 36.1 % (39.6-49.0); Lymphocytes % 11.1 % (15.3-44.8); MCH 29.6 pg (27.0-35.0); MCV 90.6 fL (80-100); MPV 9.6 fL (7.6-11.3); Monocytes % 8.6 % (3.3-12.3); RBC Red Blood Cell Count 3.98 M/uL (4.33-5.43)
[2018-06-14 06:40] LABS: BUN Blood Urea Nitrogen 24 mg/dL (7-18); Bicarbonate 40 mmol/L (21-32); Glucose Level 122 mg/dL (74-106); Magnesium 2.5 mg/dL (1.8-2.4); Potassium 4.2 mmol/L (3.5-5.1); Sodium Level 139 mmol/L (136-145)
[2018-06-14] MEDS: ARFORMOTEROL TARTRATE 15 MCG/2 ML VIAL.NEB NEB SCH ×2 (08:49→20:30)
[2018-06-14] MEDS: FLUTICASONE 50MCG NASAL SPRAY NAS SCH (09:00)
[2018-06-14] MEDS: IPRATROPIUM BROM 0.5MG/2.5ML NEB SCH ×3 (09:10→20:30)
[2018-06-14] MEDS: FUROSEMIDE 20 MG/ 2ML VIAL IV SCH ×2 (09:35→17:03)
[2018-06-14] MEDS: CETIRIZINE HCL 5 MG TABLET PO SCH (09:36)
[2018-06-14] MEDS: ASPIRIN EC 81 MG TAB PO SCH (09:36)
[2018-06-14] MEDS: SPIRONOLACTONE 25 MG TABLET PO SCH ×2 (09:36→20:56)
[2018-06-14] MEDS: LOSARTAN POTASSIUM 50 MG TABLET PO SCH (09:37)
[2018-06-14] MEDS: TAMSULOSIN 0.4 MG SR CAP PO SCH (09:37)
[2018-06-14] MEDS: HYDROCODONE/APAP 7.5/325 MG TAB PO SCH ×4 (09:37→20:56)
[2018-06-14] MEDS: FINASTERIDE 5 MG TAB PO SCH (09:38)
[2018-06-14] MEDS: ROFLUMILAST 500 MCG TABLET PO SCH (09:38)
[2018-06-14 10:55] LABS: Arterial Blood Carboxyhemoglob 1.6 % (0-1.5); Blood Gas Oxyhemoglobin 87.1 % (94-97); Blood O2 Saturation 89.1 % (92-98.5)
--- NOTE | 2018-06-14 12:22 | P.PN ---
Subjective Date of Service: 06/14/18 Primary Care Provider: Dr. Sexton; Pulmonary-Dr. Callahan; Card-Dr. Robert, Urology-Dr. Euceda Chief Complaint: Hypoxic hypercapnic respiratory failure Patient is improving is still complains of feeling bloated excessive bodily fluid Review of Systems General: Weakness Respiratory: Cough, Shortness of Breath Cardiovascular: Edema Physical Examination - Vital Signs Temperature: 97.6 F Blood Pressure: 163/91 Pulse: 97 Respirations: 20 Pulse Ox (%): 96 - Physical Exam General: Alert, Oriented x3 Respiratory: Expiratory wheezes Cardiovascular: Edema - Studies Medications List Reviewed: Yes Assessment & Plan - Problems (Diagnosis) (1) Chronic respiratory failure Current Visit: No Status: Acute Plan: Patient is 62 years of age admitted with hypoxic hypercapnic respiratory failure increase spironolactone to 50 mg twice a day 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 once a day tomorrow will tried to get in a noninvasive ventilator otherwise he will need an outpatient sleep study to rule out obstructive sleep apnea patient is at high risk recent blood gases showed moderate hypoxemia with mild hypercapnia on room air continue with low-dose prednisone possible discharge tomorrow Qualifiers: Respiratory failure complication: hypoxia and hypercapnia Qualified Code(s) : J96.11 - Chronic respiratory failure with hypoxia; J96.12 - Chronic respiratory failure with hypercapnia Physician Review Additional Text: Impression: Shortness of breath, edema to the lower extremities secondary to suspected acute on chronic diastolic CHF complicated with right middle lobe pneumonia and COPD exacerbation with hypercapnia COPD exacerbation on chronic steroids Hypertension Obstructive sleep apnea, non compliant with CPAP Tobacco abuse BPH Obesity Plan: Shortness of breath, edema to the lower extremities secondary to suspected acute on chronic diastolic CHF complicated with right middle lobe pneumonia and COPD exacerbation with hypercapnia: Patient patient appears improved. Patient off BiPAP this morning. Will continue to wean off oxygen. Continue with diuresis. Patient on Rocephin and Zithromax to cover for pneumonia. X-ray shows improvement. Will ambulate patient. Await further recommendations from cardiology and pulmonology. Anticipate discharge within the next 1-2 days. COPD exacerbation on chronic steroids and oxygen dependent: Will continue with oral steroids for COPD exacerbation. Will continue with COPD medication. Patient oxygen-dependent along with chronic steroids. Pulmonology consulted. Anticipate discharge in the next 1-2 days. Hypertension: Will continue with home medication-losartan. Will monitor and address appropriately. Obstructive sleep apnea, non compliant with CPAP: Patient to be weaned off BiPAP. Patient may require CPAP at night. Compliance with CPAP addressed in detail. This can be further addressed by pulmonology. Tobacco abuse: Tobacco cessation addressed. Patient dips on a regular basis. BPH: Patient recently seen by urology. Will continue with Flomax 0.4 mg daily and finasteride 5 mg daily. Obesity: Will evaluate BMI. Will address lifestyle modification education.
[2018-06-14] MEDS: FUROSEMIDE 20 MG TABLET PO ONE ×2 (13:40→13:59)
[2018-06-14] MEDS: levoFLOXacin 500 MG TAB PO SCH (13:58)
--- NOTE | 2018-06-14 14:26 | P.PN ---
Subjective Date of Service: 06/14/18 Primary Care Provider: Dr. Sexton; Pulmonary-Dr. Callahan; Card-Dr. Robert, Urology-Dr. Euceda Chief Complaint: Hypoxic hypercapnic respiratory failure Patient seen and examined at bedside with RN. Chart reviewed. Currently patient does appear to be in acute distress. Patient also does appear to be chewing tobacco here in the hospital. Patient educated extensively on the hospital policy and the health hazards for chewing ever smoking tobacco. Patient demonstrated understanding stated however will not quit tobacco and he has been trying to do it slowly. Review of Systems 10-point ROS is otherwise unremarkable Physical Examination - Vital Signs Temperature: 97.6 F Blood Pressure: 163/91 Pulse: 97 Respirations: 20 Pulse Ox (%): 96 - Physical Exam General: Alert, Acute distress HEENT: Atraumatic, PERRLA, EOMI Neck: Supple, JVD not distended Respiratory: Clear to auscultation bilaterally, Normal air movement Cardiovascular: Regular rate/rhythm, Normal S1 S2 Gastrointestinal: Normal bowel sounds, No tenderness Musculoskeletal: No tenderness Integumentary: No rashes Neurological: Normal speech, Normal tone, Normal affect Lymphatics: No axilla or inguinal lymphadenopathy - Studies Medications List Reviewed: Yes Assessment And Plan - Current Problems (Diagnosis) (1) Acute and chronic respiratory failure ([id number]) Onset Date: 07/21/17 Current Visit: No Status: Resolved Plan: Acute on chronic respiratory failure most likely secondary to multifactorial secondary to CHF versus COPD versus obstructive sleep apnea. -currently acute phase has resolved patient is currently on nasal cannula however does require BiPAP for his chronic condition. -Patient would benefit from noninvasive positive pressure ventilator. Case management consulted to arrange for this at home. Qualifiers: Respiratory failure complication: hypoxia and hypercapnia Qualified Code(s) : J96.21 - Acute and chronic respiratory failure with hypoxia; J96.22 - Acute and chronic respiratory failure with hypercapnia; J96.22 - Acute and chronic respiratory failure with hypercapnia; J96.22 - Acute and chronic respiratory failure with hypercapnia (2) COPD with acute exacerbation Onset Date: 04/27/17 Current Visit: No Status: Resolved Plan: COPD with acute exacerbation now resolved acute phase has resolved -p.o. steroids, DuoNeb, BiPAP for now (3) Pneumonia Onset Date: 04/27/17 Current Visit: No Status: Acute Plan: Sputum culture positive for Pseudomonas -IV Levaquin Qualifiers: Pneumonia type: due to unspecified organism Laterality: right Lung location: lower lobe of lung Qualified Code(s): J18.1 - Lobar pneumonia, unspecified organism (4) Diastolic heart failure Onset Date: 06/14/18 Current Visit: No Status: Chronic Plan: Patient on IV Lasix at this time -will continue to monitor closely Qualifiers: Heart failure chronicity: acute on chronic Qualified Code(s): I50.33 - Acute on chronic diastolic (congestive) heart failure (5) Hypertension Onset Date: 04/27/17 Current Visit: No Status: Chronic Qualifiers: Hypertension type: essential hypertension Qualified Code(s): I10 - Essential (primary) hypertension (6) Nicotine dependence Onset Date: 04/27/17 Current Visit: No Status: Chronic Qualifiers: Nicotine product type: cigarettes Substance use status: uncomplicated Qualified Code(s): F17.210 - Nicotine dependence, cigarettes, uncomplicated (7) Obesity Onset Date: 04/27/17 Current Visit: No Status: Chronic Qualifiers: Obesity type: due to excess calories Obesity classification: adult class 2 (BMI 35 - 39.9) Serious obesity comorbidity presence: with serious comorbidity Body mass index: BMI 36.0-36.9 Qualified Code(s): E66.01 - Morbid (severe) obesity due to excess calories; Z68.36 - Body mass index (BMI) 36.0-36.9, adult - Plan Awaiting clinical improvement at this time. Acute phase has resolved. Patient will need a noninvasive positive pressure ventilator to avoid readmission and better control of his chronic disease. Case management has been consulted on the case to arrange for this. Discharge Plan: Home Plan to discharge in: 48 Hours - Code Status/Comfort Care Code Status Assessed: Yes Critical Care: No
[2018-06-14] MEDS ORDERED: SPIRONOLACTONE 25 MG TABLET PO ONE (15:00)
--- NOTE | 2018-06-14 15:57 | ECHO ---
HEIGHT: 5 ft 9 in WEIGHT: 246 lb 3.2 oz DATE OF STUDY: 06/14/[address]: Jadiel Rivera DO 2-DIMENSIONAL: YES M.MODE: YES DOPPLER: YES COLOR FLOW: YES TDS: YES PORTABLE: DEFINITY: BUBBLE STUDY: DIAGNOSIS: EDEMA, SHORTNESS OF BREATH CARDIAC HISTORY: CATHERIZATION: NO SURGERY: NO PROSTHETIC VALVE: NO PACEMAKER: NO MEASUREMENTS (cm) DIASTOLIC (NORMALS) SYSTOLIC (NORMALS) IVSd 1.3 (0.6-1.2) LVIDs 2.1 (2.0-3.5) LVEF 68% LVIDd 4.0 (3.5-5.7) %FS 46% LVPWd 1.3 (0.6-1.2) 2 DIMENSIONAL ASSESSMENT: RIGHT ATRIUM: NORMAL LEFT ATRIUM: NORMAL RIGHT VENTRICLE: NORMAL LEFT VENTRICLE: LEFT VENTRICULAR HYPERTROPHY TRICUSPID VALVE: NORMAL MITRAL VALVE: NORMAL PULMONIC VALVE: NORMAL AORTIC VALVE: NORMAL PERICARDIAL EFFUSION: NONE AORTIC ROOT: NORMAL LEFT VENTRICULAR WALL MOTION: NORMAL DOPPLER/COLOR FLOW: PHYSIOLOGIC TRICUSPID REGURGITATION. NORMAL RIGHT VENTRICULAR SYSTOLIC PRESSURE. COMMENTS: NORMAL LEFT VENTRICULAR EJECTION FRACTION. LEFT VENTRICULAR HYPERTROPHY. TECHNOLOGIST: KARLO UNDERWOOD
[2018-06-14] MEDS: ENOXAPARIN 40 MG/0.4 ML SQ SCH (17:02)
[2018-06-14] MEDS: ALPRAZOLAM 1 MG TABLET PO PRN (20:55)
[2018-06-14] MEDS: predniSONE 10 MG TAB PO SCH (20:56)
[2018-06-14] MEDS: THEOPHYLLINE SR 100 MG TAB PO SCH (20:58)
[2018-06-15] MEDS: IPRATROPIUM BROM 0.5MG/2.5ML NEB SCH ×4 (01:35→19:47)
[2018-06-15] MEDS: TIZANIDINE 4 MG TABLET PO PRN (04:10)
[2018-06-15 05:10] LABS: Magnesium 2.3 mg/dL (1.8-2.4); Potassium 4.4 mmol/L (3.5-5.1)
[2018-06-15] MEDS: PANTOPRAZOLE 40MG TABLET PO SCH (05:32)
[2018-06-15] MEDS: ARFORMOTEROL TARTRATE 15 MCG/2 ML VIAL.NEB NEB SCH ×2 (07:55→19:47)
[2018-06-15] MEDS: FINASTERIDE 5 MG TAB PO SCH (08:29)
[2018-06-15] MEDS: LOSARTAN POTASSIUM 50 MG TABLET PO SCH (08:30)
[2018-06-15] MEDS: TAMSULOSIN 0.4 MG SR CAP PO SCH (08:30)
[2018-06-15] MEDS: HYDROCODONE/APAP 7.5/325 MG TAB PO SCH ×4 (08:30→20:15)
[2018-06-15] MEDS: levoFLOXacin 500 MG TAB PO SCH (08:31)
[2018-06-15] MEDS: FUROSEMIDE 40 MG TABLET PO SCH (08:31)
[2018-06-15] MEDS: CETIRIZINE HCL 5 MG TABLET PO SCH (08:32)
[2018-06-15] MEDS: THEOPHYLLINE SR 100 MG TAB PO SCH ×2 (08:32→20:14)
[2018-06-15] MEDS: ROFLUMILAST 500 MCG TABLET PO SCH (08:33)
[2018-06-15] MEDS: ASPIRIN EC 81 MG TAB PO SCH (08:33)
[2018-06-15] MEDS: SPIRONOLACTONE 25 MG TABLET PO SCH ×2 (08:37→20:14)
[2018-06-15] MEDS ORDERED: FUROSEMIDE 40 MG TABLET PO SCH (09:00)
[2018-06-15] MEDS ORDERED: SPIRONOLACTONE 25 MG TABLET PO ONE (13:40)
--- NOTE | 2018-06-15 14:10 | P.PN ---
Subjective Date of Service: 06/15/18 Primary Care Provider: Dr. Sexton; Pulmonary-Dr. Callahan; Card-Dr. Robert, Urology-Dr. Euceda Chief Complaint: Hypoxic hypercapnic respiratory failure Patient seen and examined at bedside with RN. Chart reviewed. Currently patient does appear to be in acute distress. Patient also does appear to be chewing tobacco here in the hospital. Patient educated extensively on the hospital policy and the health hazards for chewing and smoking tobacco. Patient demonstrated understanding stated however will not quit tobacco and he has been trying to do it slowly. States has been feeling well overall. Review of Systems 10-point ROS is otherwise unremarkable Physical Examination - Vital Signs Temperature: 97.9 F Blood Pressure: 124/79 Pulse: 89 Respirations: 20 Pulse Ox (%): 96 - Physical Exam General: Alert, In no apparent distress HEENT: Atraumatic, PERRLA, EOMI Neck: Supple, JVD not distended Respiratory: Normal air movement, Crackles/rales Cardiovascular: Regular rate/rhythm, Normal S1 S2 Gastrointestinal: Normal bowel sounds, No tenderness Musculoskeletal: No tenderness Integumentary: No rashes Neurological: Normal speech, Normal tone, Normal affect Lymphatics: No axilla or inguinal lymphadenopathy - Studies Medications List Reviewed: Yes Assessment And Plan - Current Problems (Diagnosis) (1) Acute and chronic respiratory failure ([id number]) Onset Date: 07/21/17 Current Visit: No Status: Resolved Plan: Acute on chronic respiratory failure most likely secondary to multifactorial secondary to CHF versus COPD versus obstructive sleep apnea. -currently acute phase has resolved patient is currently on NC, however does require BiPAP for his chronic condition. -Patient would benefit from noninvasive positive pressure ventilator. Will need sleep study -Case management consulted to arrange for this at home. -Continue to monitor closely Qualifiers: Respiratory failure complication: hypoxia and hypercapnia Qualified Code(s) : J96.21 - Acute and chronic respiratory failure with hypoxia; J96.22 - Acute and chronic respiratory failure with hypercapnia; J96.22 - Acute and chronic respiratory failure with hypercapnia; J96.22 - Acute and chronic respiratory failure with hypercapnia (2) COPD with acute exacerbation Onset Date: 04/27/17 Current Visit: No Status: Resolved Plan: COPD with acute exacerbation now resolved acute phase has resolved -p.o. steroids, DuoNeb, BiPAP PRN for now (3) Pneumonia Onset Date: 04/27/17 Current Visit: No Status: Acute Plan: Sputum culture positive for Pseudomonas -IV Levaquin for now -Will continue and switch to PO once ready for Discharge Qualifiers: Pneumonia type: due to unspecified organism Laterality: right Lung location: lower lobe of lung Qualified Code(s): J18.1 - Lobar pneumonia, unspecified organism (4) Diastolic heart failure Onset Date: 06/14/18 Current Visit: No Status: Chronic Plan: Acute CHF exacerbation -Patient on PO Lasix now. Will monitor closely for next 24hrs. -On Losartan and Aldactone as well Qualifiers: Heart failure chronicity: acute on chronic Qualified Code(s): I50.33 - Acute on chronic diastolic (congestive) heart failure (5) Hypertension Onset Date: 04/27/17 Current Visit: No Status: Chronic Qualifiers: Hypertension type: essential hypertension Qualified Code(s): I10 - Essential (primary) hypertension (6) Nicotine dependence Onset Date: 04/27/17 Current Visit: No Status: Chronic Qualifiers: Nicotine product type: cigarettes Substance use status: uncomplicated Qualified Code(s): F17.210 - Nicotine dependence, cigarettes, uncomplicated (7) Obesity Onset Date: 04/27/17 Current Visit: No Status: Chronic Qualifiers: Obesity type: due to excess calories Obesity classification: adult class 2 (BMI 35 - 39.9) Serious obesity comorbidity presence: with serious comorbidity Body mass index: BMI 36.0-36.9 Qualified Code(s): E66.01 - Morbid (severe) obesity due to excess calories; Z68.36 - Body mass index (BMI) 36.0-36.9, adult - Plan Awaiting clinical improvement at this time. Acute phase has resolved. Patient will need a noninvasive positive pressure ventilator to avoid readmission and better control of his chronic disease. Case management has been consulted on the case to arrange for this. Discharge Plan: Home Plan to discharge in: 48 Hours - Code Status/Comfort Care Code Status Assessed: Yes Critical Care: No
[2018-06-15] MEDS: ENOXAPARIN 40 MG/0.4 ML SQ SCH (16:11)
[2018-06-15] MEDS: predniSONE 10 MG TAB PO SCH (20:15)
[2018-06-15] MEDS: ALPRAZOLAM 1 MG TABLET PO PRN (20:15)
[2018-06-16] MEDS: ALBUTEROL 2.5 MG/3 ML NEB SOL NEB PRN (01:20)
[2018-06-16] MEDS: IPRATROPIUM BROM 0.5MG/2.5ML NEB SCH ×4 (01:20→20:45)
[2018-06-16] MEDS: PANTOPRAZOLE 40MG TABLET PO SCH (06:08)
[2018-06-16 06:21] VITALS: BMI 35.4
[2018-06-16] MEDS: ARFORMOTEROL TARTRATE 15 MCG/2 ML VIAL.NEB NEB SCH ×2 (07:40→20:45)
--- NOTE | 2018-06-16 07:58 | P.PN ---
Subjective Date of Service: 06/16/18 Primary Care Provider: Dr. Sexton; Pulmonary-Dr. Callahan; Card-Dr. Robert, Urology-Dr. Euceda Chief Complaint: Hypoxic hypercapnic respiratory failure Patient is finally improving bloating has decreased breathing has improved Review of Systems General: Weakness Respiratory: Cough, Shortness of Breath Cardiovascular: Edema Physical Examination - Vital Signs Temperature: 97.6 F Blood Pressure: 102/71 Pulse: 76 Respirations: 20 Pulse Ox (%): 98 - Physical Exam General: Alert, Oriented x3 Neck: Supple Respiratory: Expiratory wheezes Cardiovascular: Normal S1 S2, Edema - Studies Medications List Reviewed: Yes Assessment & Plan - Problems (Diagnosis) (1) Chronic respiratory failure Current Visit: No Status: Acute Plan: Patient is 62 years of age during have better he will need an outpatient sleep study at risk for sleep apnea. Can be discharged home on prednisone 10 mg once a day and theophylline extended release 200 mg daily will adjust dose Dc Daliresp. Pseudomonas isolated in the sputum possible her right lower lobe pneumonia continue with the Levaquin for 10 days Qualifiers: Respiratory failure complication: hypoxia and hypercapnia Qualified Code(s) : J96.11 - Chronic respiratory failure with hypoxia; J96.12 - Chronic respiratory failure with hypercapnia Physician Review Additional Text: Impression: Shortness of breath, edema to the lower extremities secondary to suspected acute on chronic diastolic CHF complicated with right middle lobe pneumonia and COPD exacerbation with hypercapnia COPD exacerbation on chronic steroids Hypertension Obstructive sleep apnea, non compliant with CPAP Tobacco abuse BPH Obesity Plan: Shortness of breath, edema to the lower extremities secondary to suspected acute on chronic diastolic CHF complicated with right middle lobe pneumonia and COPD exacerbation with hypercapnia: Patient patient appears improved. Patient off BiPAP this morning. Will continue to wean off oxygen. Continue with diuresis. Patient on Rocephin and Zithromax to cover for pneumonia. X-ray shows improvement. Will ambulate patient. Await further recommendations from cardiology and pulmonology. Anticipate discharge within the next 1-2 days. COPD exacerbation on chronic steroids and oxygen dependent: Will continue with oral steroids for COPD exacerbation. Will continue with COPD medication. Patient oxygen-dependent along with chronic steroids. Pulmonology consulted. Anticipate discharge in the next 1-2 days. Hypertension: Will continue with home medication-losartan. Will monitor and address appropriately. Obstructive sleep apnea, non compliant with CPAP: Patient to be weaned off BiPAP. Patient may require CPAP at night. Compliance with CPAP addressed in detail. This can be further addressed by pulmonology. Tobacco abuse: Tobacco cessation addressed. Patient dips on a regular basis. BPH: Patient recently seen by urology. Will continue with Flomax 0.4 mg daily and finasteride 5 mg daily. Obesity: Will evaluate BMI. Will address lifestyle modification education.
[2018-06-16] MEDS: THEOPHYLLINE SR 100 MG TAB PO SCH ×2 (08:32→20:31)
[2018-06-16] MEDS: CETIRIZINE HCL 5 MG TABLET PO SCH (08:35)
[2018-06-16] MEDS: SPIRONOLACTONE 25 MG TABLET PO SCH ×2 (08:35→20:31)
[2018-06-16] MEDS: TAMSULOSIN 0.4 MG SR CAP PO SCH (08:36)
[2018-06-16] MEDS: FINASTERIDE 5 MG TAB PO SCH (08:36)
[2018-06-16] MEDS: ALPRAZOLAM 1 MG TABLET PO PRN ×2 (08:36→20:33)
[2018-06-16] MEDS: FUROSEMIDE 40 MG TABLET PO SCH (08:36)
[2018-06-16] MEDS: levoFLOXacin 500 MG TAB PO SCH (08:36)
[2018-06-16] MEDS: HYDROCODONE/APAP 7.5/325 MG TAB PO SCH ×4 (08:37→20:32)
[2018-06-16] MEDS: ASPIRIN EC 81 MG TAB PO SCH (08:37)
[2018-06-16] MEDS: LOSARTAN POTASSIUM 50 MG TABLET PO SCH (08:37)
--- NOTE | 2018-06-16 13:08 | P.PN ---
Subjective Date of Service: 06/16/18 Primary Care Provider: Dr. Sexton; Pulmonary-Dr. Callahan; Card-Dr. Robert, Urology-Dr. Euceda Chief Complaint: Hypoxic hypercapnic respiratory failure Patient seen and examined at bedside with RN. Chart reviewed. Patient has been chewing tobacco here in the hospital. Patient educated extensively on the hospital policy and the health hazards for chewing and smoking tobacco. Patient demonstrated understanding stated however will not quit tobacco and he has been trying to do it slowly. States has been feeling well overall. Review of Systems 10-point ROS is otherwise unremarkable Physical Examination - Vital Signs Temperature: 97.6 F Blood Pressure: 111/76 Pulse: 95 Respirations: 20 Pulse Ox (%): 96 - Physical Exam General: Alert, In no apparent distress HEENT: Atraumatic, PERRLA, EOMI Neck: Supple, JVD not distended Respiratory: Normal air movement, Crackles/rales Cardiovascular: Regular rate/rhythm, Normal S1 S2, Edema Gastrointestinal: Normal bowel sounds, No tenderness Musculoskeletal: Swelling Integumentary: No rashes Neurological: Normal speech, Normal tone, Normal affect Lymphatics: No axilla or inguinal lymphadenopathy - Studies Medications List Reviewed: Yes Assessment And Plan - Current Problems (Diagnosis) (1) Acute and chronic respiratory failure ([id number]) Onset Date: 07/21/17 Current Visit: No Status: Resolved Plan: Acute on chronic RF most likely secondary to multifactorial secondary to CHF versus COPD versus obstructive sleep apnea. -currently acute phase has resolved patient is currently on NC, however does require BiPAP for his chronic condition. -Patient would benefit from noninvasive positive pressure ventilator. Inpatient NIPPV setup vs Outpt Sleep Study -Case management consulted to arrange for this at home. -Continue to monitor closely until clinical Improvement of CHF Qualifiers: Respiratory failure complication: hypoxia and hypercapnia Qualified Code(s) : J96.21 - Acute and chronic respiratory failure with hypoxia; J96.22 - Acute and chronic respiratory failure with hypercapnia; J96.22 - Acute and chronic respiratory failure with hypercapnia; J96.22 - Acute and chronic respiratory failure with hypercapnia (2) COPD with acute exacerbation Onset Date: 04/27/17 Current Visit: No Status: Resolved Plan: COPD with acute exacerbation now resolved acute phase has resolved -p.o. steroids, DuoNeb, BiPAP PRN for now (3) Pneumonia Onset Date: 04/27/17 Current Visit: No Status: Acute Plan: Sputum culture positive for Pseudomonas -IV Levaquin for now -Will continue and switch to PO once ready for Discharge Qualifiers: Pneumonia type: due to unspecified organism Laterality: right Lung location: lower lobe of lung Qualified Code(s): J18.1 - Lobar pneumonia, unspecified organism (4) Diastolic heart failure Onset Date: 06/14/18 Current Visit: No Status: Chronic Plan: Acute CHF exacerbation -Patient on PO Lasix now. Will monitor closely for next 24hrs. -On Losartan and Aldactone as well -Fluids restriction Qualifiers: Heart failure chronicity: acute on chronic Qualified Code(s): I50.33 - Acute on chronic diastolic (congestive) heart failure (5) Hypertension Onset Date: 04/27/17 Current Visit: No Status: Chronic Qualifiers: Hypertension type: essential hypertension Qualified Code(s): I10 - Essential (primary) hypertension (6) Nicotine dependence Onset Date: 04/27/17 Current Visit: No Status: Chronic Qualifiers: Nicotine product type: cigarettes Substance use status: uncomplicated Qualified Code(s): F17.210 - Nicotine dependence, cigarettes, uncomplicated (7) Obesity Onset Date: 04/27/17 Current Visit: No Status: Chronic Qualifiers: Obesity type: due to excess calories Obesity classification: adult class 2 (BMI 35 - 39.9) Serious obesity comorbidity presence: with serious comorbidity Body mass index: BMI 36.0-36.9 Qualified Code(s): E66.01 - Morbid (severe) obesity due to excess calories; Z68.36 - Body mass index (BMI) 36.0-36.9, adult - Plan Awaiting clinical improvement at this time. Acute phase has resolved. Patient will need a noninvasive positive pressure ventilator to avoid readmission and better control of his chronic disease. Case management has been consulted on the case to arrange for this vs outpt Sleep study. Discharge Plan: Other Plan to discharge in: 48 Hours - Code Status/Comfort Care Code Status Assessed: Yes Critical Care: No
[2018-06-16] MEDS: ENOXAPARIN 40 MG/0.4 ML SQ SCH (16:21)
[2018-06-16] MEDS: predniSONE 10 MG TAB PO SCH (20:33)
[2018-06-17] MEDS: IPRATROPIUM BROM 0.5MG/2.5ML NEB SCH ×4 (02:50→19:48)
[2018-06-17] MEDS: PANTOPRAZOLE 40MG TABLET PO SCH (05:24)
[2018-06-17] MEDS: ARFORMOTEROL TARTRATE 15 MCG/2 ML VIAL.NEB NEB SCH ×2 (07:26→19:48)
[2018-06-17] MEDS: levoFLOXacin 500 MG TAB PO SCH (08:38)
[2018-06-17] MEDS: THEOPHYLLINE SR 100 MG TAB PO SCH ×2 (08:38→20:57)
[2018-06-17] MEDS: TAMSULOSIN 0.4 MG SR CAP PO SCH (08:38)
[2018-06-17] MEDS: SPIRONOLACTONE 25 MG TABLET PO SCH ×2 (08:39→20:58)
[2018-06-17] MEDS: LOSARTAN POTASSIUM 50 MG TABLET PO SCH (08:39)
[2018-06-17] MEDS: ASPIRIN EC 81 MG TAB PO SCH (08:39)
[2018-06-17] MEDS: FINASTERIDE 5 MG TAB PO SCH (08:39)
[2018-06-17] MEDS: CETIRIZINE HCL 5 MG TABLET PO SCH (08:39)
[2018-06-17] MEDS: HYDROCODONE/APAP 7.5/325 MG TAB PO SCH ×4 (08:40→20:59)
[2018-06-17] MEDS: FUROSEMIDE 40 MG TABLET PO SCH (08:40)
--- NOTE | 2018-06-17 14:27 | P.PN ---
Subjective Date of Service: 06/17/18 Primary Care Provider: Dr. Sexton; Pulmonary-Dr. Callahan; Card-Dr. Robert, Urology-Dr. Euceda Chief Complaint: Hypoxic hypercapnic respiratory failure Patient seen and examined at bedside with RN. Chart reviewed. Patient has been chewing tobacco here in the hospital. Patient educated extensively on the hospital policy and the health hazards for chewing and smoking tobacco. Patient demonstrated understanding States has been feeling well overall. Does get dizzy when getting up. Has not worked with PT today Review of Systems 10-point ROS is otherwise unremarkable Physical Examination - Vital Signs Temperature: 97.9 F Blood Pressure: 157/74 Pulse: 107 Respirations: 20 Pulse Ox (%): 96 - Physical Exam General: Alert, In no apparent distress HEENT: Atraumatic, PERRLA, EOMI Neck: Supple, JVD not distended Respiratory: Clear to auscultation bilaterally, Normal air movement Cardiovascular: Regular rate/rhythm, Normal S1 S2 Gastrointestinal: Normal bowel sounds, No tenderness Musculoskeletal: No tenderness Integumentary: No rashes Neurological: Normal speech, Normal tone, Normal affect Lymphatics: No axilla or inguinal lymphadenopathy - Studies Microbiology Data (last 24 hrs): 06/11/18 14:45 Blood - Blood Aerobic Blood Culture - Final No growth in 5 days. 06/11/18 14:45 Blood - Blood Anaerobic Blood Culture - Final No growth in 5 days. 06/11/18 14:30 Blood - Blood Aerobic Blood Culture - Final No growth in 5 days. 06/11/18 14:30 Blood - Blood Anaerobic Blood Culture - Final No growth in 5 days. Medications List Reviewed: Yes Assessment And Plan - Current Problems (Diagnosis) (1) Acute and chronic respiratory failure ([id number]) Onset Date: 07/21/17 Current Visit: No Status: Resolved Plan: Acute on chronic RF most likely secondary to multifactorial secondary to CHF versus COPD versus obstructive sleep apnea. Now resolved -currently acute phase has resolved patient is currently on NC, however does require BiPAP for his chronic condition. -Patient would benefit from noninvasive positive pressure ventilator. Outpt Sleep Study to be done with Outside Sales Engineer -Continue to monitor closely until clinical Improvement of CHF -Once ready to be DC Patient will need to be seen for sleep study Qualifiers: Respiratory failure complication: hypoxia and hypercapnia Qualified Code(s) : J96.21 - Acute and chronic respiratory failure with hypoxia; J96.22 - Acute and chronic respiratory failure with hypercapnia; J96.22 - Acute and chronic respiratory failure with hypercapnia; J96.22 - Acute and chronic respiratory failure with hypercapnia (2) COPD with acute exacerbation Onset Date: 04/27/17 Current Visit: No Status: Resolved Plan: COPD with acute exacerbation now resolved acute phase has resolved -p.o. steroids, DuoNeb, BiPAP PRN for now (3) Pneumonia Onset Date: 04/27/17 Current Visit: No Status: Acute Plan: Sputum culture positive for Pseudomonas -IV Levaquin for now -Will continue and switch to PO once ready for Discharge Qualifiers: Pneumonia type: due to unspecified organism Laterality: right Lung location: lower lobe of lung Qualified Code(s): J18.1 - Lobar pneumonia, unspecified organism (4) Diastolic heart failure Onset Date: 06/14/18 Current Visit: No Status: Chronic Plan: Acute CHF exacerbation -Patient on PO Lasix now. Will monitor closely for next 24hrs. -On Losartan and Aldactone as well -Fluids restriction Qualifiers: Heart failure chronicity: acute on chronic Qualified Code(s): I50.33 - Acute on chronic diastolic (congestive) heart failure (5) Hypertension Onset Date: 04/27/17 Current Visit: No Status: Chronic Qualifiers: Hypertension type: essential hypertension Qualified Code(s): I10 - Essential (primary) hypertension (6) Nicotine dependence Onset Date: 04/27/17 Current Visit: No Status: Chronic Qualifiers: Nicotine product type: cigarettes Substance use status: uncomplicated Qualified Code(s): F17.210 - Nicotine dependence, cigarettes, uncomplicated (7) Obesity Onset Date: 04/27/17 Current Visit: No Status: Chronic Qualifiers: Obesity type: due to excess calories Obesity classification: adult class 2 (BMI 35 - 39.9) Serious obesity comorbidity presence: with serious comorbidity Body mass index: BMI 36.0-36.9 Qualified Code(s): E66.01 - Morbid (severe) obesity due to excess calories; Z68.36 - Body mass index (BMI) 36.0-36.9, adult - Plan Awaiting clinical improvement at this time. Acute phase has resolved. outpt Sleep study. Anticipate Discharge in 24 hrs after working with PT Discharge Plan: Home Plan to discharge in: 48 Hours - Code Status/Comfort Care Code Status Assessed: Yes
[2018-06-17] MEDS: ENOXAPARIN 40 MG/0.4 ML SQ SCH (17:25)
[2018-06-17] MEDS: ALBUTEROL 2.5 MG/3 ML NEB SOL NEB PRN (19:48)
[2018-06-17] MEDS: ALPRAZOLAM 1 MG TABLET PO PRN (20:30)
[2018-06-17] MEDS: predniSONE 10 MG TAB PO SCH (20:59)
[2018-06-18] MEDS: IPRATROPIUM BROM 0.5MG/2.5ML NEB SCH ×2 (01:39→08:02)
[2018-06-18] MEDS: ALBUTEROL 2.5 MG/3 ML NEB SOL NEB PRN (01:39)
[2018-06-18] MEDS: PANTOPRAZOLE 40MG TABLET PO SCH (06:18)
[2018-06-18] MEDS: ARFORMOTEROL TARTRATE 15 MCG/2 ML VIAL.NEB NEB SCH (08:02)
[2018-06-18] MEDS ORDERED: HYDROCODONE/APAP 7.5/325 MG TAB PO PRN (08:42)
[2018-06-18] MEDS: TAMSULOSIN 0.4 MG SR CAP PO SCH (09:04)
[2018-06-18] MEDS: SPIRONOLACTONE 25 MG TABLET PO SCH (09:05)
[2018-06-18] MEDS: ASPIRIN EC 81 MG TAB PO SCH (09:06)
[2018-06-18] MEDS: levoFLOXacin 500 MG TAB PO SCH (09:06)
[2018-06-18] MEDS: LOSARTAN POTASSIUM 50 MG TABLET PO SCH (09:06)
[2018-06-18] MEDS: FINASTERIDE 5 MG TAB PO SCH (09:06)
[2018-06-18] MEDS: FUROSEMIDE 40 MG TABLET PO SCH (09:06)
[2018-06-18] MEDS: GABAPENTIN 100 MG CAP PO PRN (09:07)
[2018-06-18] MEDS: THEOPHYLLINE SR 100 MG TAB PO SCH (09:07)
[2018-06-18] MEDS: CETIRIZINE HCL 5 MG TABLET PO SCH (09:08)
[2018-06-18 09:10] VITALS: BP 164/80
[2018-06-18 09:21] VITALS: TEMP 97.2
[2018-06-18 10:12] VITALS: O2SAT 98
--- NOTE | 2018-06-18 16:01 | P.DS ---
Admission Date: 06/11/18 Discharge Date: 06/18/18 Primary Care Provider: Dr. Sexton; Pulmonary-Dr. Callahan; Card-Dr. Robert, Urology-Dr. Euceda Disposition: ROUTINE DISCHARGE Discharge Condition: GOOD Reason for Admission: Hypoxic hypercapnic respiratory failure Consultations: Cardiology and pulmonology - Problems (1) Acute and chronic respiratory failure ([id number]) Onset Date: 07/21/17 Status: Resolved Qualifiers: Respiratory failure complication: hypoxia and hypercapnia Qualified Code(s) : J96.21 - Acute and chronic respiratory failure with hypoxia; J96.22 - Acute and chronic respiratory failure with hypercapnia; J96.22 - Acute and chronic respiratory failure with hypercapnia; J96.22 - Acute and chronic respiratory failure with hypercapnia (2) COPD with acute exacerbation Onset Date: 04/27/17 Status: Resolved (3) Pneumonia Onset Date: 04/27/17 Status: Acute Qualifiers: Pneumonia type: due to unspecified organism Laterality: right Lung location: lower lobe of lung Qualified Code(s): J18.1 - Lobar pneumonia, unspecified organism (4) Diastolic heart failure Onset Date: 06/14/18 Status: Chronic Qualifiers: Heart failure chronicity: acute on chronic Qualified Code(s): I50.33 - Acute on chronic diastolic (congestive) heart failure (5) Hypertension Onset Date: 04/27/17 Status: Chronic Qualifiers: Hypertension type: essential hypertension Qualified Code(s): I10 - Essential (primary) hypertension (6) Nicotine dependence Onset Date: 04/27/17 Status: Chronic Qualifiers: Nicotine product type: cigarettes Substance use status: uncomplicated Qualified Code(s): F17.210 - Nicotine dependence, cigarettes, uncomplicated (7) Obesity Onset Date: 04/27/17 Status: Chronic Qualifiers: Obesity type: due to excess calories Obesity classification: adult class 2 (BMI 35 - 39.9) Serious obesity comorbidity presence: with serious comorbidity Body mass index: BMI 36.0-36.9 Qualified Code(s): E66.01 - Morbid (severe) obesity due to excess calories; Z68.36 - Body mass index (BMI) 36.0-36.9, adult Brief History of Present Illness: 62-year-old male presented to the emergency room with increasing shortness of breath and edema the extremities. Patient has reported increasing shortness of breath over the last several days. He also reports increasing edema for the last week. He saw his PCP earlier in the week. He was given Lasix. He saw some improvement. He also saw his urologist the other day. He was started on medication for BPH. Increasing edema, weight gain, and shortness of breath persisted. Patient came to the ER for further evaluation. Patient with history of COPD-steroid dependent, BPH, hypertension, obstructive sleep apnea non compliant with CPAP, back pain, anxiety. In the ER patient evaluated. Patient was found to be hypercapnic. Bicarb is 41. White count 11, hemoglobin 13.5, sodium 139, potassium 4.4, platelet count 161. Chest x-ray showed possible middle lobe pneumonia. Edema to the lower extremities sores noted. Troponin less than 0.02. Patient given Lasix in the emergency room. Venous Doppler to the lower extremities bilateral unremarkable. Patient admitted for further evaluation. When I saw the patient ER, he was on BiPAP. He appeared comfortable. Patient reports that he still dips tobacco. He is non compliant with his CPAP machine. Patient takes multiple medications. Hospital Course: Overall during the hospital stay patient remained stable Patient was initially admitted to the hospital for shortness of breath most likely secondary to acute respiratory failure secondary to multifactorial reasons. Patient most likely had COPD exacerbation versus CHF exacerbation secondary to pneumonia. Patient was started on duo nebs, steroids, BiPAP while here in the hospital along with IV Lasix for CHF exacerbation. Cardiology and pulmonology were consulted while here in the hospital. Patient had marked improvement in in his symptoms and thus was weaned off of BiPAP to nasal cannula. Patient's sputum culture was collected which was positive for Pseudomonas. Patient was given a prescription for oral antibiotics. Patient is a chronic smoker and Chews tobacco. Patient was educated extensively on the need for abstinence from tobacco altogether. Patient demonstrate understanding and states that he has been trying to do it slowly while here in the hospital. Patient now and does not have urge to smoke cigarettes. Overall patient did well while here in the hospital worked with physical therapy was able to ambulate and was successfully weaned off to nasal cannula. Patient does have home oxygen at home and does take steroids for his COPD. Patient then was discharged home under stable condition was asked to follow up with pulmonology to set up an outpatient sleep study test for his obstructive sleep apnea. Patient demonstrated understanding and thus was discharged home under stable condition Vital Signs/Physical Exam: Temp Pulse Resp BP Pulse Ox 97.2 F 78 18 164/80 H 95 06/18/18 08:00 06/18/18 09:06 06/18/18 08:00 06/18/18 09:06 06/18/18 04:00 General: Alert, In no apparent distress, Obese HEENT: Atraumatic, PERRLA, EOMI Neck: Supple, JVD not distended Respiratory: Clear to auscultation bilaterally, Normal air movement Cardiovascular: Regular rate/rhythm, Normal S1 S2 Gastrointestinal: Normal bowel sounds, No tenderness Musculoskeletal: No tenderness Integumentary: No rashes Neurological: Normal speech, Normal tone, Normal affect Lymphatics: No axilla or inguinal lymphadenopathy Laboratory Data at Discharge: WBC 8.1 K/uL (4.3-10.9) 06/14/18 06:00 Hgb 11.8 g/dL (13.6-17.9) L 06/14/18 06:00 Hct 36.1 % (39.6-49.0) L 06/14/18 06:00 Plt Count 145 K/uL (152-406) L 06/14/18 06:00 PT 10.8 SECONDS (9.5-12.5) 06/11/18 13:40 INR 0.92 06/11/18 13:40 Sodium 138 mmol/L (136-145) 06/15/18 04:03 Potassium 4.4 mmol/L (3.5-5.1) 06/15/18 04:03 BUN 24 mg/dL (7-18) H 06/15/18 04:03 Creatinine 0.90 mg/dL (0.55-1.3) 06/15/18 04:03 Glucose 155 mg/dL (74-106) H 06/15/18 04:03 Magnesium 2.3 mg/dL (1.8-2.4) 06/15/18 04:03 Total Bilirubin 0.3 mg/dL (0.2-1.0) 06/11/18 13:40 AST 13 U/L (15-37) L 06/11/18 13:40 ALT 21 U/L (12-78) 06/11/18 13:40 Alkaline Phosphatase 76 U/L (45-117) 06/11/18 13:40 Troponin I < 0.02 ng/mL (0.0-0.045) 06/12/18 06:05 Triglycerides 180 mg/dL (<150) H 06/12/18 06:05 Cholesterol 203 mg/dL (<200) H 06/12/18 06:05 HDL Cholesterol 66 mg/dL (40-60) H 06/12/18 06:05 Cholesterol/HDL Ratio 3.08 06/12/18 06:05 Home Medications: ALPRAZolam [Alprazolam] 0.5 mg PO BID PRN 06/11/18 Albuterol Sulfate [Ventolin Hfa] 2 puff IH QID PRN 06/11/18 Aspirin [Aspirin EC 81 MG] 81 mg PO DAILY 06/11/18 Cetirizine HCl [Zyrtec] 10 mg PO DAILY 06/11/18 Finasteride 5 mg PO DAILY 06/11/18 Gabapentin [Neurontin*] 100 mg PO DAILY PRN 06/11/18 Hydrocodone/Acetaminophen [Hydrocodone-Acetamin 7.5-325] 1 tab PO QID 06/11/18 Losartan Potassium 100 mg PO DAILY 06/11/18 Montelukast [Singulair*] 10 mg PO DAILY 06/11/18 Roflumilast [Daliresp*] 500 mcg PO DAILY 06/11/18 Tamsulosin HCl 0.4 mg PO DAILY 06/11/18 Tizanidine [Zanaflex*] 4 mg PO DAILY PRN 06/11/18 Arformoterol Tartrate [Brovana] 15 mcg NEB BIDRESP #1 vial.neb 06/18/18 Furosemide [Lasix*] 40 mg PO DAILY #30 tab 06/18/18 Spironolactone [Aldactone*] 50 mg PO BID #60 tab 06/18/18 Theophylline [Rustam-Dur*] 200 mg PO BID #120 tab 06/18/18 levoFLOXacin [Levaquin*] 500 mg PO DAILY #10 tab 06/18/18 predniSONE [Deltasone*] 10 mg PO BEDTIME #30 tab 06/18/18 New Medications: Arformoterol Tartrate [Brovana] 15 mcg NEB BIDRESP #1 vial.neb Furosemide [Lasix*] 40 mg PO DAILY #30 tab levoFLOXacin [Levaquin*] 500 mg PO DAILY #10 tab predniSONE [Deltasone*] 10 mg PO BEDTIME #30 tab Spironolactone [Aldactone*] 50 mg PO BID #60 tab Theophylline [Rustam-Dur*] 200 mg PO BID #120 tab Patient Discharge Instructions: Please f.u with pcp and cardiology in 1 to 2 week post discharge. You will need to be scheduled for sleep study as outpt. Please call dr Hernandez office to setup the appointment. New medication. Aldactone, Theophilline, Lasix, Levaquin and brovana. Stop taking. [place] Diet: Regular Activity: Ad erika Followup: Ivan Callahan MD [ACTIVE - CAN ADMIT] - 06/21/18 (proceed to Dr. Callahan office for medication sample, schedule an appointment for follow up) Cricket King MD [ACTIVE - CAN ADMIT] - 1 Week Estevan Car MD [Primary Care Provider] - 1-2 Weeks (Call to schedule an appointment)
== END 2018-06-18 11:41 | disposition home health service (06) | DRG 177 ==
LOC: ER 12:16 → ERHOLD 15:40 → 4TH 16:34
PROVIDERS: ADMIT Family Medicine; ATTEND Family Medicine
PROC: 5A09557 Assistance with Respiratory Ventilation, Greater than 96 Consecutive Hours, Continuous Positive Airway Pressure (ICD-10-PCS; principal; 2018-06-11)
DX: J15.1 Pneumonia due to Pseudomonas (principal); J96.22 Acute and chronic respiratory failure with hypercapnia; J96.21 Acute and chronic respiratory failure with hypoxia; I50.33 Acute on chronic diastolic (congestive) heart failure; J44.1 Chronic obstructive pulmonary disease with (acute) exacerbation; J44.0 Chronic obstructive pulmonary disease with (acute) lower respiratory infection; I11.0 Hypertensive heart disease with heart failure; Z79.51 Long term (current) use of inhaled steroids; G47.33 Obstructive sleep apnea (adult) (pediatric); Z91.19 Patient's noncompliance with other medical treatment and regimen; F17.220 Nicotine dependence, chewing tobacco, uncomplicated; N40.0 Benign prostatic hyperplasia without lower urinary tract symptoms; F41.9 Anxiety disorder, unspecified; G62.9 Polyneuropathy, unspecified; E66.01 Morbid (severe) obesity due to excess calories; Z68.36 Body mass index [BMI] 36.0-36.9, adult; F17.210 Nicotine dependence, cigarettes, uncomplicated
CPT/HCPCS: 36415; 71045; 71046; 80048; 80061; 80076; 81003; 81015; 82550; 82553; 82805; 83605; 83735; 83880; 84145; 84439; 84443; 84484; 85025; 85610; 87040; 87070; 87077; 87186; 87205; 87804; 90670; 93005; 93306; 93970; 93971; 94660; 96365; 96375; 97002; 97163; 99285; G0009; J0456; J0696; J1650; J1940; J2930; J7512; J7605

== ENCOUNTER 2018-07-13 21:51 | Emergency (ER) | payer OTHER ==
--- NOTE | 2018-07-13 22:12 | ER ---
Nurse's Notes [facility] Name: Monster Spear Age: 63 yrs Sex: Male : 1955 Arrival Date: 07/13/2018 Time: 21:52 Bed Waiting Private MD: Diagnosis: Presentation: 07/13 22:00 Presenting complaint: Patient states: that he was in the sleep study lab and she stated fc that his bp was in the 70 and was told to come to ER. Pt states that he was having some dizziness but that is normal after he takes his night medications. Transition of care: patient was not received from another setting of care. Onset of symptoms was July 13, 2018. Risk Assessment: Do you want to hurt yourself or someone else? Patient reports no desire to harm self or others. Initial Sepsis Screen: Does the patient meet any 2 criteria? No. Patient's initial sepsis screen is negative. Does the patient have a suspected source of infection? No. Patient's initial sepsis screen is negative. Care prior to arrival: Medication(s) given: Hydrocodone at 2130. 22:00 Method Of Arrival: Wheelchair fc 22:00 Acuity: ANNABELLA 3 fc Historical: - Allergies: 22:07 No Known Allergies; fc - Home Meds: 22:07 aspirin 81 mg Oral chew 1 tab once daily [Active]; hydrocodone-acetaminophen 10-325 mg fc Oral tab 1 tab every 4-6 hours [Active]; Xanax 1 mg oral tab 1 tab nightly [Active]; Ventolin HFA 90 mcg/actuation Nebulizer HFAA every 4 hours [Active]; Singulair 10 mg oral tab 1 tab once daily [Active]; tizanidine 4 mg Oral tab 1 tab as needed [Active]; prednisone 10 mg Oral tab 1 tab once daily [Active]; tamsulosin 0.4 mg Oral cp24 1 cap once daily [Active]; losartan 100 mg Oral tab 1 tab once daily [Active]; Lasix 20 mg Oral tab 1 tab 2 times per day [Active]; - PMHx: 22:07 Anxiety; COPD; Sleep Apnea; Hypertension; CHF; Pneumonia; BPH; fc - PSHx: 22:07 Appendectomy; fc - Immunization history:: Last tetanus immunization: up to date Flu vaccine is up to date. - Social history:: Smoking status: Patient/guardian denies using tobacco, the patient reports quitting approximately 1 years ago. - Ebola Screening: : Patient negative for fever greater than or equal to 101.5 degrees Fahrenheit, and additional compatible Ebola Virus Disease symptoms Patient denies exposure to infectious person Patient denies travel to an Ebola-affected area in the 21 days before illness onset. Assessment: 22:08 Reassessment: After taking bp and it was normal for him pt is requesting to go back to sleep study lab. States he thinks this all had to do with the medications he took prior to being assessed up there. Amy notified and will come back for pt. Vital Signs: 21:59 BP 101 / 60; Pulse 60; Resp 20; Temp 98.8(O); Pulse Ox 95% on 2 lpm NC; Weight 104.78 fc kg (R); Height 5 ft. 9 in. (175.26 cm) (R); Pain 7/10; 21:59 Body Mass Index 34.11 (104.78 kg, 175.26 cm) ED Course: 21:52 Patient arrived in ED. ds1 22:02 Triage completed. 22:02 Arm band placed on Patient placed in an exam room. Administered Medications: No medications were administered Outcome: 22:11 Patient left the ED. Signatures: Felicitas Gunter RN RN Treva Echevarria ds1
[2018-07-13 22:30] VITALS: BP 101/60; TEMP 98.8; O2SAT 95
== END 2018-07-13 22:11 | disposition left against medical advice (07) ==
LOC: ER 21:51
DX: Z53.21 Procedure and treatment not carried out due to patient leaving prior to being seen by health care provider (principal)
CPT/HCPCS: 99281

== ENCOUNTER 2019-07-29 19:09 | Inpatient (IN) | payer OTHER ==
[~2019-07-29 19:09] MED LIST: EPINEPHrine 1 MG/10 ML SYR ONE
[2019-07-29] MEDS ORDERED: NA CHLORIDE 0.9% 2,000 ML ONE (19:35)
[2019-07-29 19:52] LABS: Absolute Lymphocytes (CBC) 0.4 K/uL (0.7-4.9); Basophils % 0.4 % (0-1.3); Hematocrit 31.6 % (39.6-49.0); Lymphocytes % 2.4 % (15.3-44.8); MPV 11.1 fL (7.6-11.3); Protime INR 1.23; RBC Red Blood Cell Count 3.72 M/uL (4.33-5.43)
[2019-07-29] MEDS ORDERED: DOPAMINE/D5W 400 MG/250 ML BAG IV ONE (19:54)
--- NOTE | 2019-07-29 20:01 | RAD REPORT ---
EXAM DESCRIPTION: Tram Single View07/29/2019 7:54 pm CLINICAL HISTORY: cough COMPARISON: 2017 FINDINGS: The lungs are moderately hyperaerated The lungs appear clear of acute infiltrate. The heart is normal size IMPRESSION: No acute abnormalities displayed
[2019-07-29 20:05] LABS: ALT/SGPT 77 U/L (12-78); AST/SGOT 121 U/L (15-37); Albumin 2.3 g/dL (3.4-5.0); Alkaline Phosphatase 258 U/L (45-117); BUN Blood Urea Nitrogen 43 mg/dL (7-18); Bicarbonate 25 mmol/L (21-32); Bilirubin Direct 0.6 mg/dL (0-0.2); Bilirubin Total 1.1 mg/dL (0.2-1.0); CKMB Creatine Kinase MB < 1.0 ng/mL (0.3-3.6); Creatine Phosphokinase 119 U/L (39-308); Glucose Level 157 mg/dL (74-106); Lipase 39 U/L (73-393); Potassium 4.1 mmol/L (3.5-5.1); Protein, Total 6.7 g/dL (6.4-8.2); Sodium Level 133 mmol/L (136-145); Troponin (Emerg Dept Use Only) < 0.02 ng/mL (0.0-0.045)
[2019-07-29 20:19] LABS: Blood Morphology Comment NOTED (NOT SEEN); Elliptocytes 1+; Hypochromasia 1+; Platelet Estimate ADEQ; Teardrop Cell 1+
[2019-07-29] MEDS ORDERED: dilTIAZem HCL 25 MG/5 ML VIAL IV ONE (20:52)
[2019-07-29] MEDS ORDERED: PIPER/TAZO/NS 3.375gm 3.375 GM/100 ML BAG ONE (20:54)
[2019-07-29] MEDS ORDERED: VANCOMYCIN 1 GM/VIAL ONE (20:54)
[2019-07-29] MEDS ORDERED: NA CHLORIDE 0.9% 250 ML ONE (20:55)
[2019-07-29] MEDS ORDERED: ONDANSETRON 4 MG/2 ML VIAL ONE (21:25)
--- NOTE | 2019-07-29 21:26 | ER ---
Nurse's Notes [facility] Name: Monster Spear Age: 64 yrs Sex: Male : 1955 Arrival Date: 07/29/2019 Time: 19:25 Bed 3 Private MD: Diagnosis: Other sepsis Presentation: 07/29 19:20 Presenting complaint: EMS states: Pt C/O shortness of breath and back pain that started wh a few days ago. Pt had Hx of COPD and on 2LNC at home. PT was seen by PCP and finished 7 days of Levofloxacin 750 mg. Transition of care: patient was not received from another setting of care. Onset of symptoms was July 29, 2019. Risk Assessment: Do you want to hurt yourself or someone else? Patient reports no desire to harm self or others. Initial Sepsis Screen: Does the patient meet any 2 criteria? Systolic BP < 90 mmHg. HR > 90 bpm. Yes Does the patient have a suspected source of infection? Yes: Productive cough/pneumonia If YES to both, name of provider notified: Jayme Alvarez MD Care prior to arrival: Medication(s) given: Albuterol Neb x 1, Atrovent Neb x 1, Oxygen administered. via nasal cannula. 19:20 Method Of Arrival: EMS: [facility] 19:20 Acuity: ANNABELLA 2 Triage Assessment: 19:30 General: Appears uncomfortable. General: Behavior is calm, cooperative, appropriate for age. Pain: Complains of pain in lower back Pain radiates to right leg Pain currently is 9 out of 10 on a pain scale. Quality of pain is described as shooting. EENT: No signs and/or symptoms were reported regarding the EENT system. Neuro: Level of Consciousness is awake, alert, obeys commands, Oriented to person, place, time, situation, Appropriate for age. Cardiovascular: Heart tones S1 S2. Respiratory: Airway is patent Respiratory effort is even, unlabored, Respiratory pattern is regular, symmetrical, Breath sounds with wheezes. GI: Abdomen is flat, non-distended. : No signs and/or symptoms were reported regarding the genitourinary system. Derm: Skin is intact, is healthy with good turgor, Skin is pink, warm \T\ dry. normal. Musculoskeletal: Circulation, motion, and sensation intact. Historical: - Allergies: 19:55 No Known Allergies; - Home Meds: 19:55 Clonazepam Oral [Active]; Prednisone Oral [Active]; montelukast [Active]; losartan oral wh oral [Active]; Furosemide Oral [Active]; Daliresp oral oral [Active]; tizanidine oral oral [Active]; Ventolin Nebulizer [Active]; gabapentin oral oral [Active]; - PMHx: 19:55 Anxiety; BPH; CHF; COPD; Hypertension; Pneumonia; Sleep Apnea; - PSHx: 19:55 Appendectomy; - Immunization history:: Adult Immunizations not up to date. - Social history:: Smoking status: Patient/guardian denies using tobacco. - Ebola Screening: : Patient negative for fever greater than or equal to 101.5 degrees Fahrenheit, and additional compatible Ebola Virus Disease symptoms Patient denies exposure to infectious person. Screenin:56 Abuse screen: Denies threats or abuse. Denies injuries from another. Nutritional wh screening: No deficits noted. Tuberculosis screening: No symptoms or risk factors identified. Fall Risk None identified. Assessment: 19:30 Reassessment: See Triage Assessment. 19:50 General: Appears in no apparent distress. uncomfortable, Behavior is calm, cooperative, rr5 appropriate for age. 19:50 Pain: Complains of pain in back Pain radiates to right leg Pain currently is 9 out of rr5 10 on a pain scale. Quality of pain is described as aching, Pain began gradually, Is intermittent. Neuro: Level of Consciousness is awake, alert, obeys commands, Oriented to person, place, time, situation. Cardiovascular: Capillary refill < 3 seconds Patient's skin is warm and dry. systolic BP on the 80's. Rhythm is atrial fibrillation with rapid ventricular response. Respiratory: Airway is patent Respiratory effort is even, unlabored, Respiratory pattern is regular, symmetrical, O2 saturation on 90% with oxygen at 2 liters via nasal cannula. O2 dependent at home. GI: Abdomen is round. : No signs and/or symptoms were reported regarding the genitourinary system. EENT: No signs and/or symptoms were reported regarding the EENT system. Derm: Skin is fragile, is thin, Skin is pale, Skin temperature is warm Bruising that is dark purple, on right arm and left arm. Musculoskeletal: Capillary refill < 3 seconds, Reports pain in back and right leg Pain is 9 out of 10 on a pain scale. 20:05 Reassessment: Patient is alert, oriented x 3, equal unlabored respirations, skin rr5 warm/dry/pink. ED provider assess the patient and central line inserted aseptically. 21:22 Reassessment: Patient appears in no apparent distress at this time. complaints of rr5 nausea, ED provider aware with order made and carried out. 22:00 Reassessment: Patient appears in no apparent distress at this time. Patient is alert, rr5 oriented x 3, equal unlabored respirations, skin warm/dry/pink. resolved the complaint of nausea. patient keeps BP monitoring. Patient states symptoms have improved. 23:05 Reassessment: complaints of back pain. hospitalist informed over the phone with order rr5 made and carried out prior shifting to ICU. 23:20 Reassessment: Patient appears in no apparent distress at this time. Patient is alert, rr5 oriented x 3, equal unlabored respirations, skin warm/dry/pink. transfer to ICU. awake conscious and coherent not in distress. vitally stable. with ongoing vancomycin and dopamine drip at 8mcg/kg/min Patient states symptoms have improved. Vital Signs: 19:25 BP 76 / 52; Pulse 127; Resp 20; Temp 98.2; Pulse Ox 94% on 2 lpm NC; Height 5 ft. 9 in. wh (175.26 cm); 19:35 Weight 86.18 kg; tl2 20:05 BP 82 / 53; Pulse 128; Resp 10; Pulse Ox 92% on 2 lpm NC; rr5 20:20 BP 114 / 60; Pulse 150; Resp 21; Pulse Ox 96% 4 lpm ; rr5 20:35 BP 105 / 56; Pulse 154; Resp 14; Pulse Ox 96% on 4 lpm NC; rr5 20:50 BP 106 / 61; Pulse 138; Resp 13; Pulse Ox 93% on 4 lpm NC; rr5 21:00 BP 106 / 55; Pulse 135; Resp 12; Pulse Ox 95% on 4 lpm NC; rr5 21:15 BP 101 / 58; Pulse 120; Resp 13; Pulse Ox 95% on 4 lpm NC; rr5 21:30 BP 109 / 56; Pulse 122; Resp 14; Pulse Ox 95% on 4 lpm NC; rr5 21:45 BP 121 / 52; Pulse 119; Resp 14; Pulse Ox 94% on 2 lpm NC; rr5 22:00 BP 113 / 59; Pulse 112; Resp 13; Pulse Ox 94% on 2 lpm NC; rr5 22:15 BP 112 / 65; Pulse 121; Resp 14; Pulse Ox 93% on 2 lpm NC; rr5 22:30 BP 109 / 67; Pulse 126; Resp 13; Temp 97.9; Pulse Ox 93% on 2 lpm NC; rr5 19:25 Body Mass Index 28.06 (86.18 kg, 175.26 cm) ED Course: 19:25 Patient arrived in ED. tw4 19:26 Trever Hoskins is Primary Nurse. wh 19:28 Jayme Alvarez MD is Attending Physician. tw4 19:30 Inserted saline lock: 20 gauge in right antecubital area, using aseptic technique. rr5 ,using aseptic technique. inserted by [employer] laboratory technician Blood collected. 19:50 Oxygen administration via nasal cannula \T\ 4L/min. rr5 19:51 Triage completed. wh 19:55 Chest Single View XRAY In Process Unspecified. EDMS 19:56 Arm band placed on right wrist. wh 19:56 Patient has correct armband on for positive identification. Placed in gown. Bed in low wh position. Call light in reach. Side rails up X 1. hall monitor on. Pulse ox on. NIBP on. 19:56 EKG done, by ED staff, reviewed by Jayme Alvarez MD. 20:05 Assisted provider with central line placement. Set up central line tray. Triple lumen rr5 line placed in right femoral. Line placed by Jayme Alvarez MD Placement verified by blood return, Dressed with Tegaderm, Patient tolerated well. Before procedure, did Practitioner(s) obtain informed consent? No. Patient \T\ family education about procedure, CLABSI prevention and S/S of infection? Yes. Time-out/Briefing performed prior to start of procedure? Yes. Was handwashing/sanitizing done immediately prior to procedure? Yes. Was patient positioned to in a way to prevent air embolism? Yes. Was procedure site sterilized? Yes, with chlorhexidine. Was the site allowed to dry? Yes. Was local anesthetic and/or sedation utilized? Yes. During the procedure, did the Practitioner(s) maintain a sterile field? Yes. Were unused ports clamped during insertion? Yes. Was a 2nd qualified MD obtained after 3 unsuccessful insertion attempts? No. Was blood aspirated from each lumen? Yes. After the procedure, did the Practitioner(s) clean the site and apply a sterile dressing? Yes. 20:27 Warm blanket given. Head of bed elevated. rr5 21:24 Larry Cox MD is Hospitalizing Provider. tw4 22:05 Repeat lab(s) drawn. by me, sent to lab. rr5 22:44 Patient admitted, IV remains in place. intact, No redness/swelling at site. rr5 Administered Medications: 19:36 Drug: NS 0.9% (30 ml/kg) 30 ml/kg Route: IV; Rate: bolus; Site: right antecubital; tl2 22:10 Follow up: Response: No adverse reaction; IV Status: Completed infusion; IV Intake: rr5 2600ml 19:50 Drug: Dopamine drip 5 mcg/kg/min - (DOPamine 400 mg, D5W 250 ml) Route: IV; Rate: rr5 calculated rate; Site: right antecubital; 20:05 Follow up: Rate change 10 mcg/kg/min rr5 20:20 Follow up: Response: Blood pressure is unchanged; Rate change 8 mcg/kg/min; Central rr5 line inserted right femoral 22:48 Follow up: Response: No adverse reaction; Other; continue on admission rr5 22:51 Follow up: IV Status: Infusion continued upon admission rr5 20:56 Drug: Cardizem 5 mg Route: IVP; Site: right femoral; jd3 22:00 Follow up: Response: No adverse reaction rr5 21:00 Dru.375 grams of (Zosyn 3.375 grams, NS 0.9% 100 ml) Route: IVPB; Infused Over: 60 rr5 mins; Site: Other; 22:04 Follow up: Response: No adverse reaction; IV Status: Completed infusion; IV Intake: rr5 100ml 21:26 Drug: Zofran 4 mg Route: IVP; Site: right antecubital; rr5 22:20 Follow up: Response: No adverse reaction; Marked relief of symptoms rr5 22:05 Dru grams of (vancoMYCIN 1 grams, NS 0.9% 250 ml) {Note: right femoral central rr5 line.} Route: IVPB; Infused Over: 2 hrs; Site: Other; 22:50 Follow up: Response: No adverse reaction; IV Status: Infusion continued upon admission rr5 23:05 Drug: Robinson (7.5 mg-325 mg) 1 tabs {Note: rass 0.} Route: PO; rr5 23:20 Follow up: Response: Other; given prio to transfer to ICU rr5 Intake: 22:04 IV: 100ml; Total: 100ml. rr5 22:10 IV: 2600ml; Total: 2700ml. rr5 Output: 21:33 Urine: 400ml (Voided); Total: 400ml. rr5 22:23 Urine: 350ml (Voided); Total: 750ml. rr5 Outcome: 21:25 Decision to Hospitalize by Provider. tw4 22:43 Admitted to ICU accompanied by nurse, via stretcher, via wheelchair, room 1, with rr5 oxygen, on monitor, with chart, Report called to fernando 22:43 Condition: stable 22:43 Instructed on the need for admit. 23:26 Patient left the ED. bb Signatures: Dispatcher [employer] Jaimie Maher RN RN bb Knox, Taylor, RN RN tl2 Trever Hoskins Jonathon, RN RN Jayme Hart MD MD tw4 Carlitos Vargas RN RN rr5
--- NOTE | 2019-07-29 21:27 | EDPHYS ---
Physician Documentation [facility] Name: Monster Spear Age: 64 yrs Sex: Male : 1955 Arrival Date: 07/29/2019 Time: 19:25 Bed 3 Private MD: ED Physician Jayme Alvarez HPI: 07/30 05:43 This 64 yrs old Male presents to ER via EMS with complaints of Shortness Of tw4 Breath. 05:43 The patient has shortness of breath at rest. Onset: The symptoms/episode began/occurred tw4 today. Duration: The symptoms are continuous, and are unchanged since they started. The patient's shortness of breath has no apparent modifying factors. Associated signs and symptoms: The patient has no apparent associated signs or symptoms. Severity of symptoms: At their worst the symptoms were moderate in the emergency department the symptoms are unchanged. The patient has not experienced similar symptoms in the past. Historical: - Allergies: 07/29 19:55 No Known Allergies; - Home Meds: 19:55 Clonazepam Oral [Active]; Prednisone Oral [Active]; montelukast [Active]; losartan oral wh oral [Active]; Furosemide Oral [Active]; Daliresp oral oral [Active]; tizanidine oral oral [Active]; Ventolin Nebulizer [Active]; gabapentin oral oral [Active]; - PMHx: 19:55 Anxiety; BPH; CHF; COPD; Hypertension; Pneumonia; Sleep Apnea; - PSHx: 19:55 Appendectomy; - Immunization history:: Adult Immunizations not up to date. - Social history:: Smoking status: Patient/guardian denies using tobacco. - Ebola Screening: : Patient negative for fever greater than or equal to 101.5 degrees Fahrenheit, and additional compatible Ebola Virus Disease symptoms Patient denies exposure to infectious person. ROS: 07/30 05:43 Constitutional: Negative for fever, chills, and weight loss, Eyes: Negative for injury, tw4 pain, redness, and discharge, Cardiovascular: Negative for chest pain, palpitations, and edema, Abdomen/GI: Negative for abdominal pain, nausea, vomiting, diarrhea, and constipation, Back: Negative for injury and pain, MS/Extremity: Negative for injury and deformity. Respiratory: Positive for cough, shortness of breath. Exam: 05:43 Constitutional: This is a well developed, well nourished patient who is awake, alert, tw4 and in no acute distress. Head/Face: Normocephalic, atraumatic. Chest/axilla: Normal chest wall appearance and motion. Nontender with no deformity. No lesions are appreciated. Respiratory: Lungs have equal breath sounds bilaterally, clear to auscultation and percussion. No rales, rhonchi or wheezes noted. No increased work of breathing, no retractions or nasal flaring. 05:43 Cardiovascular: Rate: tachycardic, Rhythm: irregularly irregular. Vital Signs: 07/29 19:25 BP 76 / 52; Pulse 127; Resp 20; Temp 98.2; Pulse Ox 94% on 2 lpm NC; Height 5 ft. 9 in. wh (175.26 cm); 19:35 Weight 86.18 kg; tl2 20:05 BP 82 / 53; Pulse 128; Resp 10; Pulse Ox 92% on 2 lpm NC; rr5 20:20 BP 114 / 60; Pulse 150; Resp 21; Pulse Ox 96% 4 lpm ; rr5 20:35 BP 105 / 56; Pulse 154; Resp 14; Pulse Ox 96% on 4 lpm NC; rr5 20:50 BP 106 / 61; Pulse 138; Resp 13; Pulse Ox 93% on 4 lpm NC; rr5 21:00 BP 106 / 55; Pulse 135; Resp 12; Pulse Ox 95% on 4 lpm NC; rr5 21:15 BP 101 / 58; Pulse 120; Resp 13; Pulse Ox 95% on 4 lpm NC; rr5 21:30 BP 109 / 56; Pulse 122; Resp 14; Pulse Ox 95% on 4 lpm NC; rr5 21:45 BP 121 / 52; Pulse 119; Resp 14; Pulse Ox 94% on 2 lpm NC; rr5 22:00 BP 113 / 59; Pulse 112; Resp 13; Pulse Ox 94% on 2 lpm NC; rr5 22:15 BP 112 / 65; Pulse 121; Resp 14; Pulse Ox 93% on 2 lpm NC; rr5 22:30 BP 109 / 67; Pulse 126; Resp 13; Temp 97.9; Pulse Ox 93% on 2 lpm NC; rr5 19:25 Body Mass Index 28.06 (86.18 kg, 175.26 cm) wh MDM: 19:28 Patient medically screened. tw4 21:02 Differential diagnosis: reactive airway disease. Antibiotic administration: Data tw4 reviewed: vital signs, nurses notes. Test interpretation: by ED physician or midlevel provider: plain radiologic studies. Counseling: I had a detailed discussion with the patient and/or guardian regarding: the historical points, exam findings, and any diagnostic results supporting the discharge/admit diagnosis, lab results, radiology results. Physician consultation: Larry Cox MD regarding admission, patient's condition, and will see patient in unit. 07/29 19: Order name: Basic Metabolic Panel; Complete Time: 21:00 tw4 07/29 21:00 Interpretation: Normal except: NA 133; CRE 2.45; BUN 43; GLUC 157; CL 96; GFR 27. tw07/29 19:26 Order name: Blood Culture Adult (2) 07/29:26 Order name: CBC with Diff; Complete Time: 21:00 07/29 21:00 Interpretation: Normal except: WBC 15.9; RBC 3.72; HGB 10.1; HCT 31.6; MCV 84.8; PLT tw4 136; LYM% 2.4; SAROJ% 91.2; NEUT A 14.5; LYMA 0.4. 07/29 19: Order name: Ckmb; Complete Time: 21:00 4 07/29 21:01 Interpretation: Within normal limits: CKMB < 1.0. 07/29:26 Order name: CPK; Complete Time: 21:00 07/29 21:02 Interpretation: Within normal limits: CPK 119. 07/29: Order name: Lactate; Complete Time: 21:00 07/29 21:01 Interpretation: Normal except: LAC 3.6. 07/29: Order name: LFT's; Complete Time: 21:00 4 07/29 21:01 Interpretation: Normal except: AST 121; ALK 258; BILIT 1.1; BILID 0.6; ALB 2.3; GLOB tw4 4.4; A/G 0.5. 07/29 19: Order name: Lipase; Complete Time: 21:00 07/29 21:01 Interpretation: Normal except: LIP 39. 07/29 19:26 Order name: Procalcitonin; Complete Time: 21:00 [facility] 07/29 21:01 Interpretation: Abnormal: Procalcitonin 5.38. [facility] 07/29 19:26 Order name: Protime (+inr); Complete Time: 21:00 [facility] 07/29 21:01 Interpretation: Abnormal: PT 14.4. [facility] 07/29 19:26 Order name: Ptt, Activated; Complete Time: 21:00 [facility] 07/29 21:02 Interpretation: Within normal limits: PTT 29.2. [facility] 07/29 19:26 Order name: Troponin (emerg Dept Use Only); Complete Time: 21:00 [facility] 07/29 21:02 Interpretation: Within normal limits: TROPED < 0.02. [facility] 07/29 19:26 Order name: Urine Microscopic Only [facility] 07/29 19:40 Order name: Glucose, Ancillary Testing; Complete Time: 21:00 [facility] 07/29 21:01 Interpretation: GLUC,ANCIL 145. [facility] 07/29 20:18 Order name: Manual Differential; Complete Time: 21:00 [facility] 07/29 21:01 Interpretation: Abnormal: SEGS 88; BANDS [F] 4; LYM 4. [facility] 07/29 21:35 Order name: Urine Dipstick--Ancillary (enter results) ar5 07/29 22:17 Order name: Lactate [facility] 07/29 22:17 Order name: CBC with Automated Diff [facility] 07/29 22:17 Order name: CBC with Automated Diff [facility] 07/29 22:17 Order name: CKMB Creatine Kinase MB [facility] 07/29 22:17 Order name: CKMB Creatine Kinase MB [facility] 07/29 22:17 Order name: CKMB Creatine Kinase MB [facility] 07/29 22:17 Order name: CKMB Creatine Kinase MB [facility] 07/29 22:17 Order name: Comprehensive Metabolic Panel [facility] 07/29 22:17 Order name: Comprehensive Metabolic Panel [facility] 07/29 22:17 Order name: Magnesium [facility] 07/29 22:17 Order name: Magnesium [facility] 07/29 22:17 Order name: Phosphorus [facility] 07/29 22:17 Order name: Phosphorus [facility] 07/29 22:17 Order name: Troponin I [facility] 07/29 19:26 Order name: Chest Single View XRAY; Complete Time: 21:00 tw4 07/29 21:02 Interpretation: No acute disease. tw4 07/29 19:26 Order name: Accucheck; Complete Time: 19:36 tw4 07/29 19:26 Order name: Cardiac monitoring; Complete Time: 19:36 tw4 07/29 19:26 Order name: EKG - Nurse/Tech; Complete Time: 19:36 tw4 07/29 19:26 Order name: IV Saline Lock - Large Bore; Complete Time: 19:36 tw4 07/29 19:26 Order name: Labs collected and sent; Complete Time: 19:36 tw4 07/29 19:26 Order name: O2 Per Protocol; Complete Time: 19:36 tw4 07/29 19:26 Order name: O2 Sat Monitoring; Complete Time: 19:36 tw4 07/29 19:26 Order name: Urine Dipstick-Ancillary (obtain specimen); Complete Time: 22:17 tw4 07/29 22:17 Order name: Heart Healthy [facility] 07/29 22:17 Order name: Troponin I [facility] 07/29 22:17 Order name: Troponin I [facility] 07/29 22:17 Order name: Troponin I [facility] 07/29 22:21 Order name: Vancomycin Level Trough [facility] 07/29 22:44 Order name: Lactate Sepsis 2 HR Follow-up ED[facility] EC/28 05:43 Rate is 106 beats/min. Rhythm is irregularly irregular. QRS Alden is Normal. SD interval tw4 is normal. QRS interval is normal. QT interval is normal. No Q waves. No ST changes noted. Clinical impression: Atrial Fibrillation. Interpreted by me. Reviewed by me. Administered Medications: 07/29 19:36 Drug: NS 0.9% (30 ml/kg) 30 ml/kg Route: IV; Rate: bolus; Site: right antecubital; tl2 22:10 Follow up: Response: No adverse reaction; IV Status: Completed infusion; IV Intake: rr5 2600ml 19:50 Drug: Dopamine drip 5 mcg/kg/min - (DOPamine 400 mg, D5W 250 ml) Route: IV; Rate: rr5 calculated rate; Site: right antecubital; 20:05 Follow up: Rate change 10 mcg/kg/min rr5 20:20 Follow up: Response: Blood pressure is unchanged; Rate change 8 mcg/kg/min; Central rr5 line inserted right femoral 22:48 Follow up: Response: No adverse reaction; Other; continue on admission rr5 22:51 Follow up: IV Status: Infusion continued upon admission rr5 20:56 Drug: Cardizem 5 mg Route: IVP; Site: right femoral; jd3 22:00 Follow up: Response: No adverse reaction rr5 21:00 Dru.375 grams of (Zosyn 3.375 grams, NS 0.9% 100 ml) Route: IVPB; Infused Over: 60 rr5 mins; Site: Other; 22:04 Follow up: Response: No adverse reaction; IV Status: Completed infusion; IV Intake: rr5 100ml 21:26 Drug: Zofran 4 mg Route: IVP; Site: right antecubital; rr5 22:20 Follow up: Response: No adverse reaction; Marked relief of symptoms rr5 22:05 Dru grams of (vancoMYCIN 1 grams, NS 0.9% 250 ml) {Note: right femoral central rr5 line.} Route: IVPB; Infused Over: 2 hrs; Site: Other; 22:50 Follow up: Response: No adverse reaction; IV Status: Infusion continued upon admission rr5 23:05 Drug: [place]den (7.5 mg-325 mg) 1 tabs {Note: rass 0.} Route: PO; rr5 23:20 Follow up: Response: Other; given prio to transfer to ICU rr5 Disposition: 07/29/19 21:25 Hospitalization ordered by Larry Cox for Inpatient Admission. Preliminary diagnosis is Other sepsis. - Bed requested for Intensive Care Unit. - Status is Inpatient Admission. bb - Condition is Stable. - Problem is new. - Symptoms have improved. UTI on Admission? No Signatures: Dispatcher [employer] EDMS Gladis Juarez RN RN kl Ballard, Brenda, RN RN bb Knox, Taylor, CHELA RN tl2 Trever Hoskins Jonathon, RN RN Jayme Hart MD MD tw4 Carlitos Vargas RN RN rr5 Corrections: (The following items were deleted from the chart) 22:24 21:25 Hospitalization Ordered by Larry Cox MD for Inpatient Admission. Preliminary humza diagnosis is Other sepsis. Bed requested for Telemetry/MedSurg (Inpatient). Status is Inpatient Admission. Condition is Stable. Problem is new. Symptoms have improved. UTI on Admission? No. tw4 23:26 22:24 07/29/2019 21:25 Hospitalization Ordered by Larry Cox MD for Inpatient bb Admission. Preliminary diagnosis is Other sepsis. Bed requested for Intensive Care Unit. Status is Inpatient Admission. Condition is Stable. Problem is new. Symptoms have improved. UTI on Admission? No. kl
[2019-07-29 22:03] LABS: Urine Blood 1+ (NEG); Urine Glucose NEGATIVE (NEG); Urine Protein TRACE (NEG); Urine Specific Gravity 1.015 (1.005-1.030)
[2019-07-29] MEDS ORDERED: ACETAMINOPHEN 500 MG TAB PO PRN (22:12)
[2019-07-29 22:17] LABS: Urine Bacteria <20 /HPF (NONE SEEN); Urine Culture Reflex Order NOT NEEDED; Urine RBC <5 /HPF (NONE SEEN)
[2019-07-29] MEDS ORDERED: GABAPENTIN 100 MG CAP PO PRN (22:18)
--- NOTE | 2019-07-29 22:22 | P.HP ---
Certification for Inpatient Patient admitted to: Inpatient With expected LOS: >2 Midnights Patient will require the following post-hospital care: None Practitioner: I am a practitioner with admitting privileges, knowledge of patient current condition, hospital course, and medical plan of care. Services: Services provided to patient in accordance with Admission requirements found in Title 42 Section 412.3 of the Code of Federal Regulations Patient History Date of Service: 07/30/19 Reason for admission: Generalized weakness History of Present Illness: 64-year-old male with past medical history of Hypertension , COPD, steroid dependent , Anxiety , Chronic back pain, Obstructive sleep apnea, Seasonal allergies ,BPH , admitted with generalized weakness and shortness of breath which has been going on for the last few days. He states that he has been feeling flu-like symptoms initially which was treated with antibiotics as outpatient but was not getting better. Associated fever and chills. And generalized body pain. No nausea vomiting or diarrhea. Cough present with mucoid sputum. Patient was assessed in the ER and was found to be hypotensive and is being admitted for management of possible sepsis. Allergies No Known Allergies Allergy (Unverified 04/24/17 18:11) Home medications list reviewed: Yes Home Medications: ALPRAZolam [Alprazolam] 0.5 mg PO BID PRN 06/11/18 Albuterol Sulfate [Ventolin Hfa] 2 puff IH QID PRN 06/11/18 Aspirin [Aspirin EC 81 MG] 81 mg PO DAILY 06/11/18 Cetirizine HCl [Zyrtec] 10 mg PO DAILY 06/11/18 Finasteride 5 mg PO DAILY 06/11/18 Gabapentin [Neurontin*] 100 mg PO DAILY PRN 06/11/18 Hydrocodone/Acetaminophen [Hydrocodone-Acetamin 7.5-325] 1 tab PO QID 06/11/18 Losartan Potassium 100 mg PO DAILY 06/11/18 Montelukast [Singulair*] 10 mg PO DAILY 06/11/18 Roflumilast [Daliresp*] 500 mcg PO DAILY 06/11/18 Tamsulosin HCl 0.4 mg PO DAILY 06/11/18 Tizanidine [Zanaflex*] 4 mg PO DAILY PRN 06/11/18 Arformoterol Tartrate [Brovana] 15 mcg NEB BIDRESP #1 vial.neb 06/18/18 Furosemide [Lasix*] 40 mg PO DAILY #30 tab 06/18/18 Spironolactone [Aldactone*] 50 mg PO BID #60 tab 06/18/18 Theophylline [Rustam-Dur*] 200 mg PO BID #120 tab 06/18/18 levoFLOXacin [Levaquin*] 500 mg PO DAILY #10 tab 06/18/18 predniSONE [Deltasone*] 10 mg PO BEDTIME #30 tab 06/18/18 - Past Medical/Surgical History Diabetic: No Past Medical History: Reviewed- Non-Contributory -: Hypertension -: COPD, steroid dependent -: Anxiety -: Chronic back pain -: Obstructive sleep apnea, non compliant CPAP -: Seasonal allergies -: BPH Past Surgical History: Reviewed- Non-Contributory -: Appendectomy Psychosocial/ Personal History: Patient is . He has children. He is disabled. - Family History Family History: Reviewed- Non-Contributory - Social History Smoking Status: Former smoker Alcohol use: No CD- Drugs: No Caffeine use: Yes Review of Systems 10-point ROS is otherwise unremarkable General: Weakness, Malaise Respiratory: Cough, Shortness of Breath, Sputum, Wheezing Cardiovascular: Unremarkable Gastrointestinal: Unremarkable Physical Examination - Vital Signs Temperature: 98.2 F Blood Pressure: 98/62 Pulse: 122 Respirations: 18 - Physical Exam General: Alert, Oriented x3, Mild distress, Obese HEENT: Atraumatic, Normocephalic Neck: Supple Respiratory: Diminished, Crackles/rales, Expiratory wheezes Cardiovascular: Normal S1 S2, Irregular heart rate/rhythm Capillary refill: <2 Seconds Gastrointestinal: Soft and benign, W/out hepatosplenomegaly Musculoskeletal: No clubbing, No swelling Integumentary: No rashes, No breakdown Neurological: Normal speech, Normal strength at 5/5 x4 extr Lymphatics: No axilla or inguinal lymphadenopathy Urinary: Other (No bladder distention) External genitalia: Deferred Rectal: Deferred - Studies Laboratory Data (last 24 hrs) 07/29/19 19:30: PT 14.4 H, INR 1.23, APTT 29.2 07/29/19 19:30: WBC 15.9 H, Hgb 10.1 L, Hct 31.6 L, Plt Count 136 L 07/29/19 19:30: Sodium 133 L, Potassium 4.1, BUN 43 H, Creatinine 2.45 H, Glucose 157 H, Total Bilirubin 1.1 H, AST 121 H, ALT 77, Alkaline Phosphatase 258 H, Lipase 39 L Assessment and Plan - Problems (Diagnosis) (1) Sepsis Current Visit: Yes Status: Acute (2) Chronic respiratory failure Current Visit: No Status: Acute Qualifiers: Respiratory failure complication: hypoxia and hypercapnia Qualified Code(s) : J96.11 - Chronic respiratory failure with hypoxia; J96.12 - Chronic respiratory failure with hypercapnia (3) Anxiety Onset Date: 04/27/17 Current Visit: No Status: Chronic (4) Chronic back pain Onset Date: 04/27/17 Current Visit: No Status: Chronic Qualifiers: Back pain location: low back pain Back pain laterality: midline Sciatica presence: with sciatica Sciatica laterality: bilateral sciatica Qualified Code(s): M54.41 - Lumbago with sciatica, right side; M54.42 - Lumbago with sciatica, left side; G89.29 - Other chronic pain (5) Diastolic heart failure Onset Date: 06/14/18 Current Visit: No Status: Chronic Qualifiers: Heart failure chronicity: acute on chronic Qualified Code(s): I50.33 - Acute on chronic diastolic (congestive) heart failure (6) Hypertension Onset Date: 04/27/17 Current Visit: No Status: Chronic Qualifiers: Hypertension type: essential hypertension Qualified Code(s): I10 - Essential (primary) hypertension - Plan Severe sepsis Acute hypoxic respiratory failure COPD exacerbation Possible pneumonia Chronic back pain Hypotensive History hypertension History of diastolic heart failure Chronic back pain Plan Monitor closely under telemetry in ICU Moderate hydration given history of CHF IV antibiotics Cultures Change antibiotic as per the sensitivity Continue home medications Pain control Oxygen supplementation Bronchodilators GI/DVT prophylaxis Advanced directives full code - Advance Directives Does patient have a Living Will: No Does patient have a Durable POA for Healthcare: No Time Spent Managing Pts Care (In Minutes): 46
[2019-07-29] MEDS ORDERED: VANCOMYCIN 1 GM in NA CHLORIDE 0.9% 250 ML IVPB SCH (23:00)
[2019-07-29] MEDS ORDERED: MORPHINE 2 MG/ML SYR IV ONE (23:57)
[2019-07-30] MEDS: CEFEPIME 1 GM/VIAL IV SCH ×2 (03:26→16:00)
[2019-07-30] MEDS ORDERED: CEFEPIME 1 GM/100 ML BAG IV ONE (03:27)
[2019-07-30] MEDS: IPRATROPIUM BROM 0.5MG/2.5ML NEB SCH ×4 (03:50→19:40)
[2019-07-30 05:13] LABS: Absolute Lymphocytes (CBC) 0.5 K/uL (0.7-4.9); Basophils % 0.3 % (0-1.3); Hematocrit 28.1 % (39.6-49.0); Lymphocytes % 4.3 % (15.3-44.8); MPV 10.3 fL (7.6-11.3); RBC Red Blood Cell Count 3.31 M/uL (4.33-5.43)
[2019-07-30] MEDS: PANTOPRAZOLE 40MG TABLET PO SCH (05:25)
[2019-07-30 05:35] LABS: Bilirubin Total 0.7 mg/dL (0.2-1.0); CKMB Creatine Kinase MB < 1.0 ng/mL (0.3-3.6); Magnesium 2.3 mg/dL (1.8-2.4); Phosphorus 4.1 mg/dL (2.5-4.9); Potassium 4.2 mmol/L (3.5-5.1); Protein, Total 5.8 g/dL (6.4-8.2); Troponin I < 0.02 ng/mL (0.0-0.045)
[2019-07-30] MEDS: THEOPHYLLINE SR 100 MG TAB PO SCH ×2 (08:55→09:00)
[2019-07-30] MEDS: CETIRIZINE HCL 5 MG TABLET PO SCH ×2 (08:55→09:00)
[2019-07-30] MEDS: FINASTERIDE 5 MG TAB PO SCH ×2 (08:55→09:00)
[2019-07-30] MEDS: ENOXAPARIN 30 MG/0.3 ML SQ SCH (08:56)
[2019-07-30] MEDS: MONTELUKAST 10 MG TAB PO SCH (08:56)
[2019-07-30] MEDS: ASPIRIN EC 81 MG TAB PO SCH (08:56)
[2019-07-30] MEDS: TAMSULOSIN 0.4 MG SR CAP PO SCH ×2 (08:56→09:00)
[2019-07-30] MEDS ORDERED: ENOXAPARIN 40 MG/0.4 ML SQ SCH (09:00)
[2019-07-30] MEDS ORDERED: HYDROCODONE/APAP 7.5/325 MG TAB PO SCH (09:00)
[2019-07-30] MEDS: ALBUTEROL 2.5 MG/3 ML NEB SOL NEB PRN ×2 (09:05→13:48)
[2019-07-30] MEDS: ARFORMOTEROL TARTRATE 15 MCG/2 ML VIAL.NEB NEB SCH ×2 (09:05→19:40)
[2019-07-30] MEDS ORDERED: INFLUENZA VACCINE (for 3y+) 0.5 ML DOSE IMVAC ONE (10:00)
[2019-07-30] MEDS: HYDROCODONE/APAP 7.5/325 MG TAB PO SCH ×4 (12:09→23:51)
[2019-07-30 13:22] LABS: CKMB Creatine Kinase MB < 1.0 ng/mL (0.3-3.6); Troponin I < 0.02 ng/mL (0.0-0.045)
[2019-07-30] MEDS: VANCOMYCIN 1.5 GM in NA CHLORIDE 0.9% 500 ML IV SCH (13:47)
--- NOTE | 2019-07-30 15:26 | PN ---
Subjective: Currently, patient lying in bed. He looks not comfortable. He continued to have left s houlder pain. He said his back is killing him. He wants pain medication. There is no fever, no chi lls, no night sweats. Blood pressure still on the low side, but he is off pressors this morning. He is slightly tachycardic. Review of Systems: Otherwise negative. Objective: Vital Signs: Blood pressure is 103/59, respiratory rate 11, heart rate is 108, saturatin g 92% on 2 L nasal cannula, temperature max 98. General: He is alert, oriented x3. Does look in mild distress. HEENT: Atraumatic, normocephalic. PERRLA. Oral mucosa is moist. Neck: Supple. No JVD. No bruits. Chest: Clear to auscultation. Good air entry. Heart: Regular rate and rhythm. Tachy. No gallop or murmur. Abdomen: Soft, nontender. No masses. No hepatosplenomegaly. Positive bowel sounds. Extremities: No clubbing, no signs or edema. No calf tenderness. Neurologic: Grossly intact. Cranial nerves exam 2 through 12 intact. Normal sensation. Normal ref lexes. Normal muscle strength. Laboratory Data: CBC showed white blood cells 11.4, hemoglobin 10.2, platelets 135. Chemistry withi n normal except for BUN of 36, creatinine of 1.77, glucose of 108. LFTs were normal . Car diac enzyme first set is negative, second set is negative, third and fourth sets are pending. Assessment And Plan: 1.Sepsis, etiology unclear and patient has had no fever. Blood pressure was low, but resolved. He is blood pressure. Culture so far negative. Chest x-ray unremarkable. No evidence of pn eumonia. We will continue broad-spectrum IV antibiotic with cefepime and vancomycin at this point. 2.History of chronic obstructive pulmonary disease with recent onset of bronchitis. Continue on inh aler, prednisone 10 mg daily. 3.Back pain. Continue Zanaflex, oxycodone. Chronic. 4.Anxiety, on Xanax p.r.n. continue. 5.Deep venous thrombosis prophylaxis, on Lovenox. AYDEE/JENARO Voice ID: [id number] Report ID: [id number]
[2019-07-30] MEDS: CEFEPIME/SWI 1gm 10 ML IVP SCH (17:47)
[2019-07-30] MEDS: ALPRAZOLAM 1 MG TABLET PO PRN (17:54)
[2019-07-30] MEDS ORDERED: VANCOMYCIN 1.5 GM in NA CHLORIDE 0.9% 500 ML IV SCH ×4 (21:00)
[2019-07-30 21:31] LABS: CKMB Creatine Kinase MB < 1.0 ng/mL (0.3-3.6); Troponin I < 0.02 ng/mL (0.0-0.045)
[2019-07-31] MEDS: IPRATROPIUM BROM 0.5MG/2.5ML NEB SCH ×4 (02:14→20:15)
[2019-07-31] MEDS: HYDROCODONE/APAP 7.5/325 MG TAB PO SCH ×6 (04:00→23:53)
[2019-07-31] MEDS: CEFEPIME/SWI 1gm 10 ML IVP SCH ×2 (05:18→16:35)
[2019-07-31] MEDS: PANTOPRAZOLE 40MG TABLET PO SCH (05:25)
[2019-07-31 05:26] VITALS: BMI 28.5
[2019-07-31] MEDS: ARFORMOTEROL TARTRATE 15 MCG/2 ML VIAL.NEB NEB SCH ×2 (08:10→20:15)
[2019-07-31] MEDS: ALBUTEROL 2.5 MG/3 ML NEB SOL NEB PRN ×2 (08:10→13:35)
[2019-07-31 08:17] LABS: Absolute Lymphocytes (CBC) 0.4 K/uL (0.7-4.9); Basophils % 0.6 % (0-1.3); Hematocrit 27.8 % (39.6-49.0); Lymphocytes % 4.9 % (15.3-44.8); MPV 10.3 fL (7.6-11.3); RBC Red Blood Cell Count 3.29 M/uL (4.33-5.43)
[2019-07-31 08:36] LABS: Albumin 1.9 g/dL (3.4-5.0); Bilirubin Total 0.8 mg/dL (0.2-1.0); Potassium 4.1 mmol/L (3.5-5.1); Protein, Total 5.7 g/dL (6.4-8.2)
[2019-07-31] MEDS: FUROSEMIDE 40 MG TABLET PO SCH (09:00)
[2019-07-31] MEDS: ENOXAPARIN 30 MG/0.3 ML SQ SCH (09:05)
[2019-07-31] MEDS: ROFLUMILAST 500 MCG TABLET PO SCH (09:06)
[2019-07-31] MEDS: predniSONE 10 MG TAB PO SCH (09:06)
[2019-07-31] MEDS: MONTELUKAST 10 MG TAB PO SCH (09:06)
[2019-07-31] MEDS: ASPIRIN EC 81 MG TAB PO SCH (09:06)
--- NOTE | 2019-07-31 10:52 | RAD REPORT ---
EXAM DESCRIPTION: Tram Single View07/31/2019 10:43 am CLINICAL HISTORY: sob COMPARISON: July 29, 2018 FINDINGS: The interstitial pattern within the lungs is mildly prominent. Lungs are hyperaerated The heart is normal size IMPRESSION: Mildly prominent interstitial pattern within the lungs may indicate mild interstitial pu lmonary edema, pneumonitis or atypical pneumonia
[2019-07-31] MEDS: VANCOMYCIN 1.5 GM in NA CHLORIDE 0.9% 500 ML IV SCH (12:12)
[2019-07-31] MEDS: NA CHLORIDE 0.9% 1,000 ML IV SCH ×2 (12:15→22:00)
--- NOTE | 2019-07-31 17:34 | PN ---
Subjective: Currently, patient lying in bed in the ICU. He is doing okay, continued to be tachycard ic, but he continue to be in severe pain in his lower back radiating all the way to his lower legs. He has no chest pain or shortness of breath. Review of Systems: Otherwise is negative. Objective: Vital Signs: Blood pressure 97/64, respiratory rate 19, pulse 110, temperature 98.1. He is describing his pain as 9/10. General: He is alert and oriented x3. Looks in mild distress. HEENT: Atraumatic, normocephalic. PERRLA. Oral mucosa is moist. Neck: Supple. No JVD. No bruits. Chest: Clear to auscultation. Good air entry. Heart: Regular rate and rhythm. S1 and S2 are normal. No gallop or murmur. Abdomen: Soft, nontender. No masses. No hepatosplenomegaly. Positive bowel sounds. Extremities: No clubbing, cyanosis, or edema. No calf tenderness. Neurologic: Grossly intact. Cranial nerve exam 2 through 12 intact. Muscle strength normal except the patient is limited by his pain. Laboratory Data: Today, showed CBC was within normal limits except for hemoglobin 9.4, white blood c ell all the way down to normal, platelets 124. Chemistry within normal limits including BUN of 24, c reatinine 1.09, alkaline phosphatase of 263. Microbiology still so far including sputum and blood, all are negative. Assessment And Plan: A 64-year-old gentleman with: 1.Hypotensive episode and urinary urgency? Sepsis. So far, no evidence of sepsis. Patient has no fever. Chest x-ray negative for pneumonia. Blood culture and sputum culture, all are negative. He is empirically on SIMV and vancomycin. Now discharge vancomycin given no fever and cultures negative . 2.Chronic obstructive pulmonary disease history with recent onset of bronchitis. Continue prednison e 10 mg daily. Continue inhaler. 3.Excruciating back pain, not better with Zanaflex, oxycodone. We will proceed with lumbar spine MR I depend on the result. Patient may need to be evaluated by Neurosurgery because he is describing sc iatica pain in both thighs. 4.Anxiety. Continue on Xanax p.r.n. 5.Deep vein thrombosis prophylaxis, on Lovenox. 6.Tachycardia, sinus, mostly. I will continue fluids for now, could be secondary to severity of the pain. Addendum: Chest x-ray just done now and showed mild prominent interstitial pattern within the lung, which may indicate mild interstitial pulmonary edema, pneumonitis or atypical pneumonia. Patient alr krzysztof on antibiotic Rocephin pain. Again, I will discharge vancomycin at this point as cultures so fa r negative. Cefepime should be broad-spectrum off to cover any pneumonia. We will transfer patient to the floor from the ICU if the bed available. AYDEE/JENARO Voice ID: [id number] Report ID: [id number]
[2019-08-01] MEDS: IPRATROPIUM BROM 0.5MG/2.5ML NEB SCH ×4 (01:40→19:25)
[2019-08-01] MEDS: NA CHLORIDE 0.9% 1,000 ML IV SCH ×2 (02:09→06:15)
[2019-08-01] MEDS: HYDROCODONE/APAP 7.5/325 MG TAB PO SCH ×5 (03:43→20:28)
[2019-08-01] MEDS ORDERED: NA CHLORIDE 0.9% 500 ML IV ONE ×2 (04:31→05:30)
[2019-08-01] MEDS: CEFEPIME/SWI 1gm 10 ML IVP SCH ×2 (05:29→17:07)
[2019-08-01] MEDS: PANTOPRAZOLE 40MG TABLET PO SCH (05:30)
[2019-08-01] MEDS ORDERED: DOPAMINE/D5W 400 MG/250 ML BAG IV PRN (05:51)
[2019-08-01 06:11] LABS: Absolute Lymphocytes (CBC) 0.5 K/uL (0.7-4.9); Basophils % 0.7 % (0-1.3); Hematocrit 25.2 % (39.6-49.0); Lymphocytes % 6.5 % (15.3-44.8); RBC Red Blood Cell Count 2.97 M/uL (4.33-5.43)
[2019-08-01 06:33] LABS: Albumin 1.6 g/dL (3.4-5.0); Bilirubin Total 0.8 mg/dL (0.2-1.0); Potassium 3.9 mmol/L (3.5-5.1)
[2019-08-01] MEDS: ARFORMOTEROL TARTRATE 15 MCG/2 ML VIAL.NEB NEB SCH (08:31)
[2019-08-01] MEDS: ONDANSETRON 4 MG/2 ML VIAL IV PRN (08:39)
[2019-08-01 08:48] LABS: Arterial Blood Carboxyhemoglob 1.8 % (0-1.5); Blood Gas Oxyhemoglobin 81.5 % (94-97); Blood O2 Saturation 83.4 % (92-98.5)
[2019-08-01] MEDS: FUROSEMIDE 40 MG TABLET PO SCH (09:00)
[2019-08-01] MEDS ORDERED: POTASSIUM CL SA 10 MEQ TAB PO ONE (09:00)
--- NOTE | 2019-08-01 09:24 | RAD REPORT ---
EXAM DESCRIPTION: RAD - Chest Single View - 08/01/2019 9:10 am CLINICAL HISTORY: Shortness of breath, abnormal chest film follow-up COMPARISON: July 31 TECHNIQUE: AP portable chest image was obtained 0904 hours . FINDINGS: Interstitial and alveolar opacities are present in each lung base slightly worse on the ri ght. Pattern is progressive from the comparison study. Perihilar interstitial pattern remains promine nt. No progressive finding in the mid or upper lung carvalho. Heart and vasculature are normal. No measurable pleural effusion and no pneumothorax. No acute bony abnormality seen. No acute aortic findings suspected. IMPRESSION: Worsening interstitial and alveolar opacification in each lung base. Central interstitial pattern is prominent. Patient shows a mixed pattern. Bilateral lung base pneumonia would be a primary consideration. CHF/ v olume overload should also be considered.
--- NOTE | 2019-08-01 09:25 | RAD REPORT ---
EXAM DESCRIPTION: RAD - Abdomen Single View - 08/01/2019 9:08 am CLINICAL HISTORY: abd pain/infection COMPARISON: No comparisons FINDINGS: Bowel gas pattern is non-specific. No obstruction, free air or pneumatosis. No suspicious calcifications. Right femoral vascular access catheter is in place. No significant bony findings IMPRESSION: Negative KUB examination for acute or suspicious finding.
[2019-08-01] MEDS ORDERED: FUROSEMIDE 20 MG/ 2ML VIAL IV ONE ×2 (09:44→17:16)
[2019-08-01] MEDS: ROFLUMILAST 500 MCG TABLET PO SCH (10:06)
[2019-08-01] MEDS: ASPIRIN EC 81 MG TAB PO SCH (10:06)
[2019-08-01] MEDS: predniSONE 10 MG TAB PO SCH (10:06)
[2019-08-01] MEDS: MONTELUKAST 10 MG TAB PO SCH (10:06)
[2019-08-01] MEDS: ENOXAPARIN 30 MG/0.3 ML SQ SCH (10:06)
--- NOTE | 2019-08-01 10:22 | EKG ---
Test Date: 2019-07-29 Test Time: 19:31:59 Real Estate Sales Agent: SARKIS MEASUREMENT RESULTS: Intervals: Rate: 130 TN: QRSD: 78 QT: 294 QTc: 432 [place]: P: TN: QRS: 86 T: 69 INTERPRETIVE STATEMENTS: Atrial fibrillation with rapid ventricular response Abnormal ECG Compared to ECG 06/11/2018 12:42:26 Sinus rhythm no longer present Ventricular premature complex(es) no longer present Electronically Signed On 08-01-19 10:21:56 INSPECTOR BICYCLE by Otilio Jo
--- NOTE | 2019-08-01 16:29 | PN ---
Date of Progress Note: 08/01/2019 Subjective: Patient was seen and examined. Chart reviewed and case discussed with RN. Patient lam urena complaining of some abdominal pain, was moved back to the ICU due to hypotension, is placed on dopa mine. Medications: List reviewed. Physical Examination: Vital Signs: Temperature 98.1, heart rate 113, blood pressure 112/62, respirations 17, O2 of 86% on 5 L via nasal cannula. General: Awake, alert, oriented x3. Elderly male, ill appearing, in some mild respiratory distress. CV: S1, S2. Sinus tachycardia. Atrial fibrillation, irregularly irregular. Peripheral pulses pres ent. Respiratory: Diminished breath sounds especially at the bases. Some rhonchi heard. No wheezing or stridor. Gastrointestinal: Abdomen is soft, nontender, nondistended. Positive bowel sounds. Extremities: No clubbing, cyanosis, or edema. Neurologic: Nonfocal. Laboratory Data: Sodium 139, potassium 3.9, chloride 105, CO2 of 27, BUN 20, creatinine 1.03, glucos e 108, calcium 7.9. Procalcitonin 1.39. WBC 7.4, H and H 8.2, 25.2, platelets 115, neutrophils 82%. Blood cultures, no growth to date. Sputum cultures, normal respiratory janki. Imaging Studies: Chest x-ray shows worsening interstitial and alveolar opacification in each lung ba se. Central interstitial pattern is prominent. Bilateral lung base pneumonia would be primary consi deration. CHF, volume overload should also be considered. Assessment: A 64-year-old male with: 1.Hypotension, unclear etiology, possibly sepsis. Does have elevated procalcitonin level. WBC coun t is normalized. Currently afebrile. Blood cultures, sputum culture, no growth to date. Continue c efepime. Vancomycin was discontinued due to negative blood cultures currently on dopamine. We will keep map above 65. We will stop IV fluids due to shortness of breath. 2.Acute respiratory failure with hypoxia. Patient is 86% on 5 L. We will switch to non-Venti mask. Obtain ABG. Repeat chest x-ray likely secondary to chronic obstructive pulmonary disease and conge stive heart failure. 3.Chronic obstructive pulmonary disease with recent bronchitis. Continue with steroids and breathin g treatments. 4.Intractable lower back pain, not improved with Zanaflex and oxycodone. Lumbar spine MRI has been ordered. Patient will likely need neurosurgical evaluation as outpatient due to sciatic pain. 5.Generalized anxiety disorder. Continue Xanax p.r.n. 6.Sinus tachycardia, did have some irregular beats. We will continue to monitor. 7.Deep venous thrombosis prophylaxis. Continue with Lovenox. 8.Generalized abdominal pain. Single-view abdominal x-ray did not show any acute changes. Continue to monitor. Obtain CT scan if worsening. Plan: We will continue with diuretics, discontinue IV fluids, keep monitoring in the ICU setting, we an off pressors to keep map of 65. SA/MODL Voice ID: [id number] Report ID: [id number]
[2019-08-01] MEDS: FORMOTEROL FUMARATE 20 MCG/2 ML VIAL.NEB IH SCH (19:25)
[2019-08-02] MEDS: HYDROCODONE/APAP 7.5/325 MG TAB PO SCH ×6 (00:09→20:35)
[2019-08-02] MEDS: IPRATROPIUM BROM 0.5MG/2.5ML NEB SCH ×2 (01:25→07:55)
[2019-08-02] MEDS: CEFEPIME/SWI 1gm 10 ML IVP SCH ×2 (04:25→16:56)
[2019-08-02 05:39] LABS: Potassium 4.3 mmol/L (3.5-5.1)
[2019-08-02 05:48] LABS: Absolute Lymphocytes (CBC) 0.6 K/uL (0.7-4.9); Basophils % 0.5 % (0-1.3); Hematocrit 30.5 % (39.6-49.0); Lymphocytes % 5.7 % (15.3-44.8); MPV 10.5 fL (7.6-11.3); RBC Red Blood Cell Count 3.62 M/uL (4.33-5.43)
[2019-08-02] MEDS: PANTOPRAZOLE 40MG TABLET PO SCH (06:29)
[2019-08-02] MEDS: FORMOTEROL FUMARATE 20 MCG/2 ML VIAL.NEB IH SCH ×2 (07:55→20:03)
[2019-08-02] MEDS: predniSONE 10 MG TAB PO SCH (08:23)
[2019-08-02] MEDS: ROFLUMILAST 500 MCG TABLET PO SCH (08:23)
[2019-08-02] MEDS: ASPIRIN EC 81 MG TAB PO SCH (08:23)
[2019-08-02] MEDS: MONTELUKAST 10 MG TAB PO SCH (08:23)
[2019-08-02] MEDS: ENOXAPARIN 30 MG/0.3 ML SQ SCH (08:24)
[2019-08-02] MEDS: FUROSEMIDE 40 MG TABLET PO SCH (08:24)
[2019-08-02] MEDS: ONDANSETRON 4 MG/2 ML VIAL IV PRN (08:26)
[2019-08-02 09:00] LABS: Blood Morphology Comment NOTED (NOT SEEN)
[2019-08-02 09:01] LABS: Anisocytosis 1+; Macrocytosis SLIGHT; Platelet Estimate DECR; Toxic Granulation PRESENT
--- NOTE | 2019-08-02 12:20 | P.PN ---
Subjective Date of Service: 08/02/19 Primary Care Provider: Dr. Sexton Chief Complaint: Generalized weakness Subjective: Improving, Other (Still with back pain) Physical Examination - Vital Signs Temperature: 98.5 F Blood Pressure: 99/60 Pulse: 17 Respirations: 16 Pulse Ox (%): 94 - Physical Exam General: Alert, In no apparent distress, Oriented x3, Cooperative HEENT: Atraumatic Neck: Supple Respiratory: Expiratory wheezes Cardiovascular: Normal pulses, Regular rate/rhythm Gastrointestinal: Normal bowel sounds, Soft and benign, Non-distended, No tenderness, No masses, No rebound, No guarding Musculoskeletal: Other (Back pain noted to the lower lumbar) Neurological: Normal speech, Normal strength at 5/5 x4 extr, Normal tone, Normal affect - Studies Medications List Reviewed: Yes Assessment & Plan Discharge Plan: Home Plan to discharge in: Greater than 2 days Physician Review Additional Text: Impression: Hypotension suspect sepsis possible underlying bilateral pneumonia Acute on chronic respiratory failure with hypoxia secondary to COPD exacerbation Chronic diastolic CHF History of hypertension Acute on chronic lower back pain with history of degenerative disc and joint disease with prior herniation Generalized anxiety disorder GERD Anemia of chronic disease Plan: Hypotension suspect sepsis possible underlying bilateral pneumonia: Patient currently on cefepime. Continue IV antibiotic therapy. Pro calcitonin improved. Will repeat chest x-ray today. Chest x-ray stay showed possible bilateral pneumonia. Dopamine has been weaned off this morning. Will continue monitor closely. Maintain map of 65. Will consult pulmonology for further recommendation. Anticipate discharge in the next 3-5 days pending clinical improvement. Acute on chronic respiratory failure with hypoxia secondary to COPD exacerbation on chronic steroid: Continue with COPD medication. Patient on chronic steroids. Continue with steroid medication. Maintain sats above 90%. Chronic diastolic CHF: Patient was given IV fluid bolus yesterday due to low blood pressure requiring vasopressor. Patient was given Lasix thereafter. Currently off IV fluids at this time. Will monitor closely. Prior echocardiogram reviewed. History of hypertension: Continue to hold losartan due to low blood pressure. Will monitor closely. Acute on chronic lower back pain with history of degenerative disc and joint disease with prior herniation: Patient continues with pain. Will provide medication for pain. MRI lumbar spine ordered to further evaluate. Generalized anxiety disorder: Continue with medication. GERD: Continue the medication. Anemia of chronic disease: Continue to monitor levels. Time Spent Managing Pts Care (In Minutes): 55
[2019-08-02] MEDS ORDERED: IPRATROPIUM BROM 0.5MG/2.5ML NEB PRN (12:22)
[2019-08-02] MEDS: METHYLPREDNISOLONE 40 MG INJ IV SCH ×2 (13:06→20:35)
--- NOTE | 2019-08-02 13:26 | RAD REPORT ---
EXAM DESCRIPTION: RAD - Chest Single View - 08/02/2019 1:15 pm CLINICAL HISTORY: Pneumonia, shortness of breath COMPARISON: August 01 TECHNIQUE: AP portable chest image was obtained 1308 hours . FINDINGS: Interstitial and scattered alveolar opacities have improved from the prior day imaging. Re mnant opacification remains. Heart and vasculature are normal. Costophrenic angle blunting remains. N o progressive pleural effusion. There is no pneumothorax. No acute bony abnormality seen. No acute ao rtic findings suspected. IMPRESSION: Partial clearing of the interstitial and alveolar opacities seen on prior day imaging.
--- NOTE | 2019-08-02 16:25 | RAD REPORT ---
EXAM DESCRIPTION: MRI - Spine Lumbar W/Wo Cont - 08/02/2019 3:38 pm CLINICAL HISTORY: back pain, pain radiates into both lower extremities, history of back injury 2 months earlier COMPARISON: MRI lumbar spine 2009 TECHNIQUE: Sagittal T1-weighted, T2-weighted and T2-STIR weighted sequences were obtained. Axial T1- weighted and heavily T2-weighted sequences were obtained through the lumbar disc levels. Sagittal and axial post-contrast. T1-weighted images were obtained following 19ml on Gd contrast material. FINDINGS: Exam is grossly abnormal. There is hypointense T1 and hyperintense T2/IR signal throughout the left side of the T11 and T12 bodies. There is abnormal signal in the anterior L1 and L2 bodies. Abnormal signal in the left-side L3 body is present extending into the pedicle. Abnormal signal is pr esent throughout the L4 body involving both pedicles, posterior elements and the spinous process. Abn ormal signal is present in the central aspect of the S1 body and the majority of the S2 body. No acut e compression fracture. There is a Schmorl's node in the superior endplate L2. Areas of signal abnorm ality show abnormal enhancement on the post contrast views. This could be a primary malignant process such as multiple myeloma. Bony metastatic disease from occult malignancy would be a consideration as well. No paraspinal soft tissue mass component. Conus is normal with no clumping or thickening of the cauda equina. T11-12 level: Protruding disc material and endplate spurring changes are present midline and right si de of this level which is seen only on sagittal imaging. Direct contact of the cord is not confirmed. No central spinal stenosis seen. T12-L1 level: Disc desiccation without other significant findings. L1-2 level: Disc desiccation L2-3 level: Disc desiccation L3-4 level: Early disc desiccation L4-5 level: Disc desiccation L5-S1 level: Disc desiccation with significant loss in disc height. Disc bulge and endplate spurring changes are present. No central spinal stenosis. Moderate bilateral foraminal stenosis present. Hypointense T1 and hyperintense T2 signal is present in the right sacral ala and the medial aspects o f each ileum at the SI joint. These areas show enhancement similar to the vertebral body abnormalitie s. IMPRESSION: Extensive neoplastic marrow changes throughout the lower thoracic and lumbar spine exten ding into the sacral ala and into each ileum. This could be a primary bone process such as multiple m yeloma. Bony metastatic disease from occult malignancy is possible as well. No acute compression fractures. T11- T12 focal herniation to the right of midline. This does not cause central spinal stenosis. Degenerative disc disease, disc bulge and endplate spurring changes at L5-S1 cause bilateral foramina l stenosis.
[2019-08-02] MEDS ORDERED: HYDROMORPHONE HCL 2 MG/ML inj ONE (23:16)
[2019-08-03] MEDS: HYDROCODONE/APAP 7.5/325 MG TAB PO SCH ×2 (00:45→04:00)
[2019-08-03] MEDS: METHYLPREDNISOLONE 40 MG INJ IV SCH (02:32)
[2019-08-03 05:00] LABS: Absolute Lymphocytes (CBC) 0.4 K/uL (0.7-4.9); Basophils % 0.2 % (0-1.3); Hematocrit 32.4 % (39.6-49.0); Lymphocytes % 3.3 % (15.3-44.8); MPV 11.4 fL (7.6-11.3); RBC Red Blood Cell Count 3.83 M/uL (4.33-5.43)
[2019-08-03 05:21] LABS: Magnesium 2.2 mg/dL (1.8-2.4); Potassium 4.8 mmol/L (3.5-5.1)
[2019-08-03] MEDS: PANTOPRAZOLE 40MG TABLET PO SCH (06:09)
[2019-08-03] MEDS: CEFEPIME/SWI 1gm 10 ML IVP SCH (06:09)
[2019-08-03] MEDS ORDERED: TRAMADOL HCL 50 MG TAB PO PRN (07:23)
[2019-08-03] MEDS: HYDROMORPHONE HCL 1 MG/ML INJ IV PRN ×5 (07:53→23:58)
[2019-08-03] MEDS: FORMOTEROL FUMARATE 20 MCG/2 ML VIAL.NEB IH SCH ×2 (09:15→20:30)
[2019-08-03] MEDS: ROFLUMILAST 500 MCG TABLET PO SCH (09:49)
[2019-08-03] MEDS: FUROSEMIDE 40 MG TABLET PO SCH (09:49)
[2019-08-03] MEDS: ASPIRIN EC 81 MG TAB PO SCH (09:49)
[2019-08-03] MEDS: predniSONE 10 MG TAB PO SCH (09:50)
[2019-08-03] MEDS: ENOXAPARIN 30 MG/0.3 ML SQ SCH (09:50)
[2019-08-03] MEDS: MONTELUKAST 10 MG TAB PO SCH (09:50)
[2019-08-03] MEDS: LIDOCAINE 4% PATCH TOP SCH (09:51)
[2019-08-03] MEDS: GABAPENTIN 100 MG CAP PO SCH ×3 (09:52→20:15)
[2019-08-03] MEDS: DOCUSATE NA/SENNA CONC 1 TAB PO PRN (10:44)
--- NOTE | 2019-08-03 11:23 | P.CNS ---
Date of Consult: 08/03/19 Primary Care Provider: Dr. Sexton Chief Complaint: Hypotension back pain History of Present Illness: Patient is 64 years of age well known to me with a history of terminal COPD chronic steroid therapy he has been getting progressively worse since this month was treated with a course of levofloxacin improved then relapsed again got worse during [place] time has been coughing up also complaining of worsening back pain in addition to our proximal thigh pain. Days been seen by a pain management pain as also worsens since gi MRI of the spine is very abnormal chest x-ray shows some interstitial changes patient's hypotension is not resolved with IV steroids he is on chronic prednisone therapy Allergies No Known Allergies Allergy (Unverified 04/24/17 18:11) Home Medications: Albuterol Sulfate [Ventolin Hfa] 2 puff IH QID PRN 06/11/18 Aspirin [Aspirin EC 81 MG] 81 mg PO DAILY 06/11/18 Hydrocodone/Acetaminophen [Hydrocodone-Acetamin 7.5-325] 1 tab PO QID 06/11/18 Losartan Potassium 100 mg PO DAILY 06/11/18 Montelukast [Singulair*] 10 mg PO BID 06/11/18 Roflumilast [Daliresp*] 500 mcg PO DAILY 06/11/18 Tizanidine [Zanaflex*] 4 mg PO BID 06/11/18 Arformoterol Tartrate [Brovana] 15 mcg NEB BIDRESP #1 vial.neb 06/18/18 Furosemide [Lasix*] 40 mg PO DAILY #30 tab 06/18/18 clonazePAM [Clonazepam] 0.5 mg PO BIDP PRN 07/30/19 predniSONE [Deltasone*] 10 mg PO DAILY 07/30/19 - Past Medical/Surgical History Diabetic: No -: Hypertension -: COPD, steroid dependent -: Anxiety -: Chronic back pain -: Obstructive sleep apnea, non compliant CPAP -: Seasonal allergies -: BPH -: Pnm -: CHF -: Appendectomy Psychosocial/ Personal History: Patient is . He has children. He is disabled. - Family History Sister Medical History: Hypertension - Social History Smoking Status: Current every day smoker Alcohol use: No CD- Drugs: No Caffeine use: Yes Place of Residence: Home Review of Systems General: Weakness Respiratory: Cough, Shortness of Breath Musculoskeletal: Back Pain Physical Examination Temp Pulse Resp BP Pulse Ox 98 F 111 H 16 125/86 90 L 08/03/19 08:00 08/03/19 09:49 08/03/19 09:00 08/03/19 09:49 08/03/19 09:00 General: Alert, Oriented x3, Mild distress HEENT: Atraumatic Neck: Supple Respiratory: Expiratory wheezes Cardiovascular: No edema, Normal S1 S2 Gastrointestinal: Normal bowel sounds, Soft and benign Musculoskeletal: No clubbing, No swelling Integumentary: No rashes, No breakdown - Problems (1) COPD exacerbation Current Visit: Yes Status: Acute Plan: Patient is 64 years of age admitted with COPD exacerbation is doing bed time better on IV steroids can interchange agent to prednisone 20 mg twice a day chest x- ray shows some interstitial changes cultures are negative at some oral fluoroquinolone Dc cefepime agree with transfer to the floor labs reviewed white count is normal (2) Chronic back pain Onset Date: 04/27/17 Current Visit: No Status: Chronic Plan: Patient has chronic severe back pain that is worsened since [place] this year MRI scan is very abnormal suggestive extensive neoplastic changes multiple myeloma workup is pending Qualifiers: Back pain location: low back pain Back pain laterality: midline Sciatica presence: with sciatica Sciatica laterality: bilateral sciatica Qualified Code(s): M54.41 - Lumbago with sciatica, right side; M54.42 - Lumbago with sciatica, left side; G89.29 - Other chronic pain
--- NOTE | 2019-08-03 13:13 | P.PN ---
Subjective Date of Service: 08/03/19 Primary Care Provider: Dr. Sexton Chief Complaint: Hypotension back pain Subjective: Other (Patient improved. Blood pressure stable. Still with back pain.) Physical Examination - Vital Signs Temperature: 98 F Blood Pressure: 114/84 Pulse: 112 Respirations: 22 Pulse Ox (%): 93 - Physical Exam General: Alert, In no apparent distress, Oriented x3, Cooperative HEENT: Atraumatic Neck: Supple Respiratory: Clear to auscultation bilaterally, Normal air movement Cardiovascular: Normal pulses, Regular rate/rhythm Gastrointestinal: Normal bowel sounds, Soft and benign, Non-distended Musculoskeletal: Other (Back pain noted) - Studies Medications List Reviewed: Yes Assessment & Plan Discharge Plan: Home Plan to discharge in: 48 Hours Physician Review Additional Text: Impression: Hypotension suspect sepsis possible underlying bilateral pneumonia Acute on chronic respiratory failure with hypoxia secondary to COPD exacerbation Chronic diastolic CHF History of hypertension Acute on chronic lower back pain with history of degenerative disc and joint disease with prior herniation with abnormal MRI Generalized anxiety disorder GERD Anemia of chronic disease Plan: Hypotension suspect sepsis possible underlying bilateral pneumonia: X-ray shows improvement. Case discussed with pulmonology. CT chest ordered. Patient will be transition from IV antibiotic therapy to oral. Blood pressure now better control. Off vasopressor over the last day. Will transfer patient to the floor. Will order physical therapy. Patient had abnormal MRI of the lumbar spine. Will need to evaluate for multiple myeloma. Anticipate improvement over the next 3-5 days. Acute on chronic respiratory failure with hypoxia secondary to COPD exacerbation on chronic steroid: Will transition from IV steroids to oral. Continue COPD medication and treatment. Await CT chest. Continue with pulmonology recommendation. Chronic diastolic CHF: IV fluids stopped. Await echocardiogram.. History of hypertension: Continue to hold blood pressure medication. Will consider restarting medication once stable. Acute on chronic lower back pain with history of degenerative disc and joint disease with prior herniation with abnormal MRI: MRI shows extensive neoplastic marrow changes throughout the lower thoracic spine and lumbar spine extending into the sacral ala and into each ileum. This could be a primary bone process such as multiple myeloma. Bony metastatic disease from occult malignancy is possible as well. No acute compression fractures. T11- T12 focal herniation to the right of midline. Degenerative disc disease, disc bulge and endplate spurring changes at L5-S1 cause bilateral foraminal stenosis. Will add lidocaine patch. Will increase hydrocodone. Will add gabapentin and adjust accordingly. Will evaluate for multiple myeloma. Generalized anxiety disorder: Continue with medication. GERD: Continue the medication. Anemia of chronic disease: Continue to monitor levels. Time Spent Managing Pts Care (In Minutes): 55
[2019-08-03] MEDS: HYDROCODONE/APAP 10/325 TAB PO PRN ×2 (13:15→18:50)
--- NOTE | 2019-08-03 13:27 | RAD REPORT ---
EXAM DESCRIPTION: CT - Thorax Wo Con - 08/03/2019 12:22 pm CLINICAL HISTORY: Flu-like symptoms, shortness of breath, abnormal lumbar spine MRI showing evidence for multiple neoplastic lesions COMPARISON: MRI lumbar spine August 02 TECHNIQUE: Axial 5 mm thick images of the chest were obtained without IV contrast. All CT scans are performed using dose optimization technique as appropriate and may include automated exposure control or mA/KV adjustment according to patient size. FINDINGS: Emphysematous changes are present in the lung carvalho. Scarring changes are present at the lateral left base. Small bilateral pleural effusions are present with atelectasis. The left gutter op acification lateral left margin is 4.5 by 1.5 cm in size. This is doubtful as a primary malignant pro cess. No pneumothorax. Multiple mediastinal lymph nodes are present without calcification. Largest is 15 mm. No gross aortic or pulmonary artery finding suspected. Assessment is limited in the absence of IV contrast. No card iomegaly. Trace amount of pleural thickening present. No chest wall mass or abnormal axillary lymphadenopathy. Limited imaging of the upper abdomen shows the liver containing multiple ill-defined low-density lesi ons. IMPRESSION: CT chest findings are not suspicious for a primary lung malignancy. There is focal 4.5 x 1.5 centimeter opacification in the left lateral gutter probably atelectasis and fluid rather than a primary process. Limited upper abdomen imaging shows multiple suspicious lesions throughout the liver. The liver lesi ons for the support the MRI findings of metastatic disease. Multiple nonspecific mediastinal lymph nodes up to 15 mm.
[2019-08-03] MEDS: IPRATROPIUM BROM 0.5MG/2.5ML NEB SCH ×2 (14:40→20:30)
[2019-08-03] MEDS: METOPROLOL TAR 25 MG TAB PO SCH (18:50)
[2019-08-03] MEDS: predniSONE 20 MG TAB PO SCH (20:15)
[2019-08-03] MEDS: ALPRAZOLAM 1 MG TABLET PO PRN (22:06)
[2019-08-04] MEDS ORDERED: dexAMETHasone 10 MG/ML VIAL IV ONE (00:25)
[2019-08-04] MEDS: HYDROCODONE/APAP 10/325 TAB PO PRN ×5 (00:52→22:22)
[2019-08-04] MEDS: ALBUTEROL 2.5 MG/3 ML NEB SOL NEB PRN (01:50)
[2019-08-04] MEDS: IPRATROPIUM BROM 0.5MG/2.5ML NEB SCH ×4 (01:50→20:10)
[2019-08-04] MEDS: HYDROMORPHONE HCL 1 MG/ML INJ IV PRN ×4 (04:28→18:58)
[2019-08-04] MEDS: PANTOPRAZOLE 40MG TABLET PO SCH (05:38)
[2019-08-04] MEDS: METOPROLOL TAR 25 MG TAB PO SCH (05:38)
[2019-08-04 05:41] LABS: Magnesium 2.5 mg/dL (1.8-2.4); Potassium 4.4 mmol/L (3.5-5.1)
[2019-08-04 06:57] LABS: Absolute Lymphocytes (CBC) 0.3 K/uL (0.7-4.9); Basophils % 0.3 % (0-1.3); Hematocrit 28.8 % (39.6-49.0); Lymphocytes % 2.4 % (15.3-44.8); RBC Red Blood Cell Count 3.42 M/uL (4.33-5.43)
[2019-08-04 08:02] LABS: Anisocytosis 1+; Blood Morphology Comment NOTED (NOT SEEN); Macrocytosis 1+; Platelet Estimate DECR; Polychromasia 1+
[2019-08-04] MEDS: FORMOTEROL FUMARATE 20 MCG/2 ML VIAL.NEB IH SCH ×2 (08:02→20:10)
[2019-08-04] MEDS: LIDOCAINE 4% PATCH TOP SCH ×2 (09:00→09:20)
[2019-08-04] MEDS: ROFLUMILAST 500 MCG TABLET PO SCH (09:19)
[2019-08-04] MEDS: predniSONE 20 MG TAB PO SCH ×2 (09:19→20:44)
[2019-08-04] MEDS: ASPIRIN EC 81 MG TAB PO SCH (09:19)
[2019-08-04] MEDS: GABAPENTIN 300 MG CAP PO SCH ×2 (09:19→14:23)
[2019-08-04] MEDS: MONTELUKAST 10 MG TAB PO SCH (09:19)
[2019-08-04] MEDS: levoFLOXacin 500 MG TAB PO SCH (09:19)
[2019-08-04] MEDS: FUROSEMIDE 40 MG TABLET PO SCH (09:19)
[2019-08-04] MEDS: ENOXAPARIN 30 MG/0.3 ML SQ SCH (09:21)
[2019-08-04] MEDS ORDERED: FENTANYL 25 MCG/PATCH TD SCH (11:00)
[2019-08-04] MEDS: TIZANIDINE 4 MG TABLET PO PRN (11:01)
--- NOTE | 2019-08-04 12:58 | RAD REPORT ---
EXAM DESCRIPTION: CT - Abdomen Pelvis Wo Contrast - 08/04/2019 12:33 pm CLINICAL HISTORY: Liver mass COMPARISON: August 03, 2019 cat scan chest TECHNIQUE: Computed axial tomography of the abdomen and pelvis was obtained. IV and oral contrast we re not requested. All CT scans are performed using dose optimization technique as appropriate and may include automated exposure control or mA/KV adjustment according to patient size. FINDINGS: The evaluation of solid organs, vessels and bowel is limited secondary to the lack of con trast administration. Small bilateral pleural effusions The liver contains many hypodense lesions which vary in size from a few millimeters to approximately 5 centimeters. The liver has a mildly nodular contour. The caudate lobe is prominent The spleen, adrenals and right kidney appear grossly normal. 1 millimeter nonobstructing left renal c alculus Pancreas contains many small calcifications. Appendectomy. There is no evidence of diverticulitis. Small inguinal hernias contain fat Lesions are present throughout the lower thoracic/lumbar spine and sacrum Right femoral line in place IMPRESSION: The liver is riddled with hypodense lesions likely metastases. Small pancreatic calcifications likely indicating chronic pancreatitis. Vertebral lesions likely metastases Mildly nodular hepatic contour with prominence of the caudate lobe may indicate chronic disease
[2019-08-04 13:20] LABS: Protime INR 1.09
--- NOTE | 2019-08-04 15:26 | P.PN ---
Subjective Date of Service: 08/04/19 Primary Care Provider: Dr. Sexton Chief Complaint: Hypotension back pain Subjective: Other (Patient doing slightly better today. Pain still present to the lumbar region) Physical Examination - Vital Signs Temperature: 97.4 F Blood Pressure: 114/93 Pulse: 89 Respirations: 16 Pulse Ox (%): 92 - Physical Exam General: Alert, In no apparent distress, Oriented x3, Cooperative HEENT: Atraumatic Neck: Supple Respiratory: Expiratory wheezes Cardiovascular: Normal pulses, Regular rate/rhythm Gastrointestinal: Normal bowel sounds, Soft and benign, Non-distended, No tenderness, No masses, No rebound, No guarding Musculoskeletal: Other (Pain to the lumbar region) Neurological: Normal speech, Normal strength at 5/5 x4 extr, Normal tone, Normal affect - Studies Microbiology Data (last 24 hrs): 07/29/19 19:39 Blood - Blood Aerobic Blood Culture - Final No growth in 5 days. 07/29/19 19:39 Blood - Blood Anaerobic Blood Culture - Final No growth in 5 days. 07/29/19 19:30 Blood - Blood Aerobic Blood Culture - Final No growth in 5 days. 07/29/19 19:30 Blood - Blood Anaerobic Blood Culture - Final No growth in 5 days. Medications List Reviewed: Yes Assessment & Plan Discharge Plan: Home Plan to discharge in: 72 Hours Physician Review Additional Text: Impression: Hypotension suspect sepsis possible underlying bilateral pneumonia Acute on chronic respiratory failure with hypoxia secondary to COPD exacerbation Chronic diastolic CHF History of hypertension Acute on chronic lower back pain with history of degenerative disc and joint disease with prior herniation with abnormal MRI Generalized anxiety disorder GERD Anemia of chronic disease with thrombocytopenia Acute on chronic renal disease stage III Plan: Hypotension suspect sepsis possible underlying bilateral pneumonia: Case discussed with pulmonology. Continue antibiotic therapy. Will hold IV fluids due to diastolic CHF. CT scan chest reviewed with pulmonology. CT shows 4.5 x 1.5 cm opacification in the left lateral gutter possible atelectasis versus malignant nature. Liver shows suspicious lesions likely metastatic in nature. Multiple nonspecific mediastinal lymph nodes noted. Case discussed with pulmonology and Oncology. Will check diagnostic PSA. Lab sent for multiple myeloma workup. Thrombocytopenia noted. Anemia also noted. Will give blood transfusion at this time. Will workup thrombocytopenia. Continue discuss with pulmonology and Oncology. Will add additional medication for pain including fentanyl patch. Will continue adjust medication. Patient desires to go home at discharge. Continue to work with physical therapy. Anticipate discharge likely in the next 3-5 days. Will need to consider skilled placement if no significant improvement. Acute on chronic respiratory failure with hypoxia secondary to COPD exacerbation on chronic steroid: Continue COPD treatment. Chronic diastolic CHF: IV fluids stopped. Await echocardiogram.. History of hypertension: Continue to hold blood pressure medication. Will consider restarting medication once stable. Acute on chronic lower back pain with history of degenerative disc and joint disease with prior herniation with abnormal MRI: MRI shows extensive neoplastic marrow changes throughout the lower thoracic spine and lumbar spine extending into the sacral ala and into each ileum. This could be a primary bone process such as multiple myeloma. Bony metastatic disease from occult malignancy is possible as well. No acute compression fractures. T11- T12 focal herniation to the right of midline. Degenerative disc disease, disc bulge and endplate spurring changes at L5-S1 cause bilateral foraminal stenosis. Will add fentanyl for better pain control. Will provide hydrocodone as needed. Will decrease gabapentin due to acute on chronic renal disease Generalized anxiety disorder: Continue with medication. GERD: Continue the medication. Anemia of chronic disease with thrombocytopenia: Continue as above. Will provide 1 blood transfusion Acute on chronic renal disease: Nephrology consulted. Will adjust medications accordingly. Time Spent Managing Pts Care (In Minutes): 55
[2019-08-04] MEDS ORDERED: ALBUTEROL 2.5 MG/3 ML NEB SOL NEB PRN (16:00)
[2019-08-04] MEDS ORDERED: NA CHLORIDE 0.9% 250 ML IV SCH (16:00)
[2019-08-04] MEDS: GABAPENTIN 100 MG CAP PO SCH (20:44)
[2019-08-04] MEDS: DOCUSATE NA/SENNA CONC 1 TAB PO PRN (20:47)
--- NOTE | 2019-08-04 22:53 | P.CNS ---
Date of Consult: 08/04/19 Reason for Consult: ERIN Primary Care Provider: Dr. Sexton Chief Complaint: Hypotension back pain History of Present Illness: A 64 Y/o man with PMhx of COPD, and CHF, HTN and chronic backpain pt was admitted for SOB and weakness in ER pt was hypotensive , admitted for possible sepsis CT scan showed liver and bone lesions pt denied contrast exposure , or nsaid denied dysuria, hematuria or foamy urine Allergies No Known Allergies Allergy (Unverified 04/24/17 18:11) Home Medications: Albuterol Sulfate [Ventolin Hfa] 2 puff IH QID PRN 06/11/18 Aspirin [Aspirin EC 81 MG] 81 mg PO DAILY 06/11/18 Hydrocodone/Acetaminophen [Hydrocodone-Acetamin 7.5-325] 1 tab PO QID 06/11/18 Losartan Potassium 100 mg PO DAILY 06/11/18 Montelukast [Singulair*] 10 mg PO BID 06/11/18 Roflumilast [Daliresp*] 500 mcg PO DAILY 06/11/18 Tizanidine [Zanaflex*] 4 mg PO BID 06/11/18 Arformoterol Tartrate [Brovana] 15 mcg NEB BIDRESP #1 vial.neb 06/18/18 Furosemide [Lasix*] 40 mg PO DAILY #30 tab 06/18/18 clonazePAM [Clonazepam] 0.5 mg PO BIDP PRN 07/30/19 predniSONE [Deltasone*] 10 mg PO DAILY 07/30/19 - Past Medical/Surgical History Diabetic: No -: Hypertension -: COPD, steroid dependent -: Anxiety -: Chronic back pain -: Obstructive sleep apnea, non compliant CPAP -: Seasonal allergies -: BPH -: Pnm -: CHF -: Appendectomy Psychosocial/ Personal History: Patient is . He has children. He is disabled. - Family History Sister Medical History: Hypertension - Social History Smoking Status: Current every day smoker Alcohol use: No CD- Drugs: No Caffeine use: Yes Place of Residence: Home Review of Systems General: Weakness Eyes: Unremarkable ENT: Unremarkable Respiratory: Cough, Shortness of Breath Cardiovascular: Unremarkable Gastrointestinal: Unremarkable Genitourinary: Unremarkable Musculoskeletal: Back Pain Physical Examination Temp Pulse Resp BP Pulse Ox 97.9 F 96 H 20 109/56 L 95 08/04/19 20:00 08/04/19 20:00 08/04/19 22:22 08/04/19 20:00 08/04/19 22:22 Conclusions/Impression: ERIN on CKD CKD due to HTN nephrosclerosis off ARB Abd CT no hydro weill hold on IVF and lasix for now renal dose meds AVoid NSAID CODP excaerbation inhalers and setroids Lactic acidosis possibly due albuterol cont to trend and monitor Bone and liver mets Oncology on baord plan for possible liver biopsy Prognosis guarded
[2019-08-04] MEDS: ALPRAZOLAM 1 MG TABLET PO PRN (23:27)
[2019-08-05 00:26] LABS: Hematocrit 31.7 % (39.6-49.0)
[2019-08-05] MEDS: HYDROMORPHONE HCL 1 MG/ML INJ IV PRN ×2 (01:18→09:02)
[2019-08-05] MEDS: TIZANIDINE 4 MG TABLET PO PRN (01:29)
[2019-08-05] MEDS: IPRATROPIUM BROM 0.5MG/2.5ML NEB SCH ×3 (02:00→13:23)
[2019-08-05] MEDS: PANTOPRAZOLE 40MG TABLET PO SCH (04:50)
[2019-08-05] MEDS: HYDROCODONE/APAP 10/325 TAB PO PRN ×2 (04:50→10:45)
[2019-08-05 05:11] LABS: Magnesium 2.6 mg/dL (1.8-2.4); Potassium 4.6 mmol/L (3.5-5.1)
[2019-08-05 05:15] LABS: Absolute Lymphocytes (CBC) 0.9 K/uL (0.7-4.9); Basophils % 0.1 % (0-1.3); Hematocrit 33.3 % (39.6-49.0); Lymphocytes % 5.1 % (15.3-44.8); MPV 11.7 fL (7.6-11.3); RBC Red Blood Cell Count 3.89 M/uL (4.33-5.43)
[2019-08-05] MEDS: METOPROLOL TAR 25 MG TAB PO SCH (05:15)
[2019-08-05] MEDS ORDERED: BENZONATATE 100 MG CAP PO PRN (07:36)
[2019-08-05] MEDS: FORMOTEROL FUMARATE 20 MCG/2 ML VIAL.NEB IH SCH (08:21)
[2019-08-05] MEDS ORDERED: GUAIFENESIN 600 MG SA TAB PO SCH (09:00)
[2019-08-05] MEDS: LIDOCAINE 4% PATCH TOP SCH (09:00)
[2019-08-05] MEDS: ASPIRIN EC 81 MG TAB PO SCH (09:01)
[2019-08-05] MEDS: GABAPENTIN 100 MG CAP PO SCH ×2 (09:02→13:56)
[2019-08-05] MEDS: MONTELUKAST 10 MG TAB PO SCH (09:02)
[2019-08-05] MEDS: ROFLUMILAST 500 MCG TABLET PO SCH (09:02)
[2019-08-05] MEDS: levoFLOXacin 500 MG TAB PO SCH (09:02)
[2019-08-05] MEDS: predniSONE 20 MG TAB PO SCH (09:02)
[2019-08-05 10:14] VITALS: O2SAT 92
[2019-08-05 10:18] VITALS: TEMP 97
[2019-08-05] MEDS ORDERED: LACTULOSE 20 GM/30 ML UCUP PO PRN (11:38)
[2019-08-05 12:38] VITALS: BP 86/64
--- NOTE | 2019-08-05 12:45 | P.PN ---
Subjective Date of Service: 08/05/19 Primary Care Provider: Dr. Sexton Chief Complaint: Low back pain shortness of breath No change in patient's condition CT scan suggestive of diffuse metastatic disease to the liver complaining of severe constipation mild dyspnea on exertion is able to ambulate Review of Systems General: Weakness Respiratory: Shortness of Breath Musculoskeletal: Back Pain Physical Examination - Vital Signs Temperature: 97 F Blood Pressure: 86/64 Pulse: 94 Respirations: 18 Pulse Ox (%): 96 - Physical Exam General: Alert, Moderate distress HEENT: Atraumatic Neck: Supple Respiratory: Clear to auscultation bilaterally, Expiratory wheezes Cardiovascular: No edema, Regular rate/rhythm, Normal S1 S2 Gastrointestinal: Normal bowel sounds, Soft and benign - Studies Medications List Reviewed: Yes Assessment & Plan - Problems (Diagnosis) (1) COPD exacerbation Current Visit: Yes Status: Acute Plan: Patient admitted with COPD he has terminal COPD patient is still complaining of cough congestion is white count is elevated CT scan of the chest shows a very linear pleural-based lesion has no obvious lung mass patient's prognosis is very poor he has terminal COPD maximum bronchodilator therapy consideration for hospice care severely constipated I have added lactulose no evidence of pneumonia on the CT scan I have added doxycycline at risk for resistant staph infection (2) Chronic back pain Onset Date: 04/27/17 Current Visit: No Status: Chronic Plan: Severe chronic lower back pain in addition CT scan of the abdomen shows diffuse metastatic disease to the liver clearly has stage IV cancer by imaging patient requests a biopsy of the liver for confirmation of diagnosis Qualifiers: Back pain location: low back pain Back pain laterality: midline Sciatica presence: with sciatica Sciatica laterality: bilateral sciatica Qualified Code(s): M54.41 - Lumbago with sciatica, right side; M54.42 - Lumbago with sciatica, left side; G89.29 - Other chronic pain Physician Review Additional Text: Impression: Hypotension suspect sepsis possible underlying bilateral pneumonia Acute on chronic respiratory failure with hypoxia secondary to COPD exacerbation Chronic diastolic CHF History of hypertension Acute on chronic lower back pain with history of degenerative disc and joint disease with prior herniation with abnormal MRI Generalized anxiety disorder GERD Anemia of chronic disease with thrombocytopenia Acute on chronic renal disease stage III Plan: Hypotension suspect sepsis possible underlying bilateral pneumonia: Case discussed with pulmonology. Continue antibiotic therapy. Will hold IV fluids due to diastolic CHF. CT scan chest reviewed with pulmonology. CT shows 4.5 x 1.5 cm opacification in the left lateral gutter possible atelectasis versus malignant nature. Liver shows suspicious lesions likely metastatic in nature. Multiple nonspecific mediastinal lymph nodes noted. Case discussed with pulmonology and Oncology. Will check diagnostic PSA. Lab sent for multiple myeloma workup. Thrombocytopenia noted. Anemia also noted. Will give blood transfusion at this time. Will workup thrombocytopenia. Continue discuss with pulmonology and Oncology. Will add additional medication for pain including fentanyl patch. Will continue adjust medication. Patient desires to go home at discharge. Continue to work with physical therapy. Anticipate discharge likely in the next 3-5 days. Will need to consider skilled placement if no significant improvement. Acute on chronic respiratory failure with hypoxia secondary to COPD exacerbation on chronic steroid: Continue COPD treatment. Chronic diastolic CHF: IV fluids stopped. Await echocardiogram.. History of hypertension: Continue to hold blood pressure medication. Will consider restarting medication once stable. Acute on chronic lower back pain with history of degenerative disc and joint disease with prior herniation with abnormal MRI: MRI shows extensive neoplastic marrow changes throughout the lower thoracic spine and lumbar spine extending into the sacral ala and into each ileum. This could be a primary bone process such as multiple myeloma. Bony metastatic disease from occult malignancy is possible as well. No acute compression fractures. T11- T12 focal herniation to the right of midline. Degenerative disc disease, disc bulge and endplate spurring changes at L5-S1 cause bilateral foraminal stenosis. Will add fentanyl for better pain control. Will provide hydrocodone as needed. Will decrease gabapentin due to acute on chronic renal disease Generalized anxiety disorder: Continue with medication. GERD: Continue the medication. Anemia of chronic disease with thrombocytopenia: Continue as above. Will provide 1 blood transfusion Acute on chronic renal disease: Nephrology consulted. Will adjust medications accordingly.
[2019-08-05] MEDS ORDERED: NA CHLORIDE 0.9% 1,000 ML IV SCH (13:00)
[2019-08-05] MEDS ORDERED: NA CHLORIDE 0.9% 500 ML IV ONE (13:52)
[2019-08-05] MEDS ORDERED: FENTANYL 50 MCG/PATCH TD SCH (14:00)
[2019-08-05] MEDS ORDERED: NA CHLORIDE 0.9% 500 ML ONE (14:03)
[2019-08-05] MEDS ORDERED: NOREPINEPHRINE 4 MG in D5W 250 ML IV PRN (15:10)
[2019-08-05] MEDS ORDERED: HYDROCORTISONE SUC 100 MG INJ IV ONE (15:19)
[2019-08-05] MEDS ORDERED: WATER FOR INJ,STERILE 10 ML ONE (16:15)
[2019-08-05] MEDS ORDERED: RSI MEDICATION KIT IV ONE (16:25)
[2019-08-05] MEDS ORDERED: NALOXONE HCL 2 MG/2 ML VIAL ONE (16:28)
[2019-08-05] MEDS ORDERED: FLUCONAZOLE 100mg IVPB 100 MG/50 ML BAG IV SCH (17:00)
[2019-08-05] MEDS ORDERED: Meropenem 1,000 MG in NA CHLORIDE 0.9% 100 ML IV SCH (17:00)
--- NOTE | 2019-08-05 19:05 | P.DS ---
Admission Date: 07/29/19 Discharge Date: 08/06/19 Primary Care Provider: Dr. Sexton Disposition: Reason for Admission: Low back pain shortness of breath Consultations: Pulmonology-Dr. Callahan Nephrology-Dr. Matos Oncology-Dr. Carroll Procedures: follow up CXR: COMPARISON: August 01 TECHNIQUE: AP portable chest image was obtained 1308 hours . FINDINGS: Interstitial and scattered alveolar opacities have improved from the prior day imaging. Remnant opacification remains. Heart and vasculature are normal. Costophrenic angle blunting remains. No progressive pleural effusion. There is no pneumothorax. No acute bony abnormality seen. No acute aortic findings suspected. IMPRESSION: Partial clearing of the interstitial and alveolar opacities seen on prior day imaging. MRI Back: COMPARISON: MRI lumbar spine 2009 TECHNIQUE: Sagittal T1-weighted, T2-weighted and T2-STIR weighted sequences were obtained. Axial T1-weighted and heavily T2-weighted sequences were obtained through the lumbar disc levels. Sagittal and axial post-contrast. T1- weighted images were obtained following 19ml on Gd contrast material. FINDINGS: Exam is grossly abnormal. There is hypointense T1 and hyperintense T2 /IR signal throughout the left side of the T11 and T12 bodies. There is abnormal signal in the anterior L1 and L2 bodies. Abnormal signal in the left- side L3 body is present extending into the pedicle. Abnormal signal is present throughout the L4 body involving both pedicles, posterior elements and the spinous process. Abnormal signal is present in the central aspect of the S1 body and the majority of the S2 body. No acute compression fracture. There is a Schmorl's node in the superior endplate L2. Areas of signal abnormality show abnormal enhancement on the post contrast views. This could be a primary malignant process such as multiple myeloma. Bony metastatic disease from occult malignancy would be a consideration as well. No paraspinal soft tissue mass component. Conus is normal with no clumping or thickening of the cauda equina. T11-12 level: Protruding disc material and endplate spurring changes are present midline and right side of this level which is seen only on sagittal imaging. Direct contact of the cord is not confirmed. No central spinal stenosis seen. T12-L1 level: Disc desiccation without other significant findings. L1-2 level: Disc desiccation L2-3 level: Disc desiccation L3-4 level: Early disc desiccation L4-5 level: Disc desiccation L5-S1 level: Disc desiccation with significant loss in disc height. Disc bulge and endplate spurring changes are present. No central spinal stenosis. Moderate bilateral foraminal stenosis present. Hypointense T1 and hyperintense T2 signal is present in the right sacral ala and the medial aspects of each ileum at the SI joint. These areas show enhancement similar to the vertebral body abnormalities. IMPRESSION: Extensive neoplastic marrow changes throughout the lower thoracic and lumbar spine extending into the sacral ala and into each ileum. This could be a primary bone process such as multiple myeloma. Bony metastatic disease from occult malignancy is possible as well. No acute compression fractures. T11- T12 focal herniation to the right of midline. This does not cause central spinal stenosis. Degenerative disc disease, disc bulge and endplate spurring changes at L5-S1 cause bilateral foraminal stenosis. CT chest: COMPARISON: MRI lumbar spine August 02 TECHNIQUE: Axial 5 mm thick images of the chest were obtained without IV contrast. All CT scans are performed using dose optimization technique as appropriate and may include automated exposure control or mA/KV adjustment according to patient size. FINDINGS: Emphysematous changes are present in the lung carvalho. Scarring changes are present at the lateral left base. Small bilateral pleural effusions are present with atelectasis. The left gutter opacification lateral left margin is 4.5 by 1.5 cm in size. This is doubtful as a primary malignant process. No pneumothorax. Multiple mediastinal lymph nodes are present without calcification. Largest is 15 mm. No gross aortic or pulmonary artery finding suspected. Assessment is limited in the absence of IV contrast. No cardiomegaly. Trace amount of pleural thickening present. No chest wall mass or abnormal axillary lymphadenopathy. Limited imaging of the upper abdomen shows the liver containing multiple ill- defined low-density lesions. IMPRESSION: CT chest findings are not suspicious for a primary lung malignancy. There is focal 4.5 x 1.5 centimeter opacification in the left lateral gutter probably atelectasis and fluid rather than a primary process. Limited upper abdomen imaging shows multiple suspicious lesions throughout the liver. The liver lesions for the support the MRI findings of metastatic disease. Multiple nonspecific mediastinal lymph nodes up to [address] AB/Pelvis: COMPARISON: August 03, 2019 cat scan chest TECHNIQUE: Computed axial tomography of the abdomen and pelvis was obtained. IV and oral contrast were not requested. All CT scans are performed using dose optimization technique as appropriate and may include automated exposure control or mA/KV adjustment according to patient size. FINDINGS: The evaluation of solid organs, vessels and bowel is limited secondary to the lack of contrast administration. Small bilateral pleural effusions The liver contains many hypodense lesions which vary in size from a few millimeters to approximately 5 centimeters. The liver has a mildly nodular contour. The caudate lobe is prominent The spleen, adrenals and right kidney appear grossly normal. 1 millimeter nonobstructing left renal calculus Pancreas contains many small calcifications. Appendectomy. There is no evidence of diverticulitis. Small inguinal hernias contain fat Lesions are present throughout the lower thoracic/lumbar spine and sacrum Right femoral line in place IMPRESSION: The liver is riddled with hypodense lesions likely metastases. Small pancreatic calcifications likely indicating chronic pancreatitis. Vertebral lesions likely metastases Mildly nodular hepatic contour with prominence of the caudate lobe may indicate chronic disease Medical Problem List: Cardiac arrest with pulseless electrical activity with attempted resuscitation and intubation unsuccessful likely related to multifactorial including suspected disseminated cancer with 4.5 x 1.5 cm mass to the left lateral gutter , multiple suspicious lesions for metastasis throughout the liver, multiple nonspecific mediastinal lymph nodes, vertebral lesions likely metastasis; end- stage COPD steroid/oxygen-dependent; and acute on chronic diastolic CHF Acute on chronic respiratory failure with hypoxia secondary to COPD exacerbation with end-stage COPD, steroid/oxygen-dependent History of hypertension with hypotension suspect related to early sepsis Acute on chronic lower back pain with history of degenerative disc and joint disease with prior herniation now with extensive neoplastic marrow changes throughout the lower thoracic and lumbar spine Acute on chronic renal disease stage III Lactic acidosis likely related to albuterol Obstructive sleep apnea non compliant with BiPAP Anemia of chronic disease with thrombocytopenia likely related to underlying cancer Generalized anxiety disorder GERD Brief History of Present Illness: 64-year-old male with multiple medical problems including end-stage COPD oxygen/steroid dependent, obstructive sleep apnea non compliant, hypertension, chronic lower back pain with history of degenerative disc and joint disease with prior herniations in surgery, chronic renal disease, anxiety disorder, and GERD. Patient came in with shortness of breath. Patient was evaluated in the emergency room. Acute on chronic respiratory failure with hypoxia secondary to COPD exacerbation with possible sepsis was found. Patient admitted for further evaluation and treatment. Hospital Course: Patient initially presented with shortness of breath. Patient had been treated for upper respiratory infection without significant improvement. Patient found to have acute on chronic respiratory failure with hypoxia secondary to COPD exacerbation. Patient with history of end-stage COPD steroid and oxygen- dependent. Sepsis was suspected early on. This was ruled out. Patient continued on antibiotic therapy. Patient also continued with aggressive COPD and CHF treatment. Patient initially had hypotension. Patient required vasopressors. Pulmonology was consulted. Patient seemed to improve. Blood cultures negative. Pro calcitonin improved. IV fluids had to be stopped. Patient given IV Lasix due to overload. Patient with acute on chronic diastolic CHF. As the patient improved patient start to have acute on chronic lower back pain. Patient with history of degenerative disc and joint disease and prior herniations with surgeries. Patient was pain medication. This did not improve. MRI performed showed extensive neoplastic marrow changes throughout the lower thoracic and lumbar spine extending in to the sacral ala and into each ileum. Bony metastasis was suspected. No acute compression fracture noted. T11-12 focal herniation noted. Disc disease noted. Multiple myeloma was in the differential. Lab sent out. Patient also treated for acute on chronic renal disease stage stage III. Patient was given gentle hydration. Lactic acidosis was noted This was likely related to albuterol. Patient was switched from albuterol to Xopenex. Due to findings patient had CT scan of chest showing 4.5 x 1.5 cm opacification in the left lateral gutter. Malignancy was suspected. Liver showed multiple disseminated suspicious lesions suspicious for metastasis. Multiple nonspecific mediastinal lymph nodes also noted. Case discussed at that point with pulmonology, Oncology and Nephrology. Biopsy of liver was recommended. Differential included lung cancer likely small-cell with mets. Patient had been doing well and at transitioned from ICU to the floor. Pain medication was initiated. Biopsy was planned for Thursday. Then blood pressure started to decrease. Etiology unknown. Patient given IV fluid bolus. Patient transition to ICU. Levophed was to be started. Prior to transfer to ICU. Patient was admit in going to the bathroom. He was recommended that he not removed from the bed since he was going to the ICU. After going to the bathroom patient was found by staff lying in the bed. Rosalino rowley was called at 4:16 p.m. Patient found to be in pulseless electrical activity. ACLS resuscitation initiated. Patient was given multiple medications including epinephrine, Narcan, bicarb. Intubation was attempted. Intubation was finally successful after 2nd attempt. Resuscitation continued without change. Patient remained in pulseless electrical activity. After multiple medications and attempt, the code was terminated. Patient 4: 42 p.m.. I tried to get in contact with family and friends. Apparently the patient had very little contact with family members. Patient is not . A good friend was finally contacted by nurse to inform about patient expiring. Friend will get in contact with family. Information reviewed along with pulmonology and nephrology. Cardiac arrest with PEA likely multifactorial related to disseminated cancer likely lung cancer with metastasis to the liver, bone and spine; end-stage COPD oxygen/ steroid dependent; and acute on chronic diastolic CHF. Vital Signs/Physical Exam: Temp Pulse Resp BP Pulse Ox 97 F 94 H 16 86/64 L 96 08/05/19 12:45 08/05/19 12:45 08/05/19 14:39 08/05/19 12:45 08/05/19 14:39 General: Other (Patient ) Laboratory Data at Discharge: WBC 18.2 K/uL (4.3-10.9) H D 08/05/19 04:41 Hgb 10.9 g/dL (13.6-17.9) L 08/05/19 04:41 Hct 33.3 % (39.6-49.0) L 08/05/19 04:41 Plt Count 87 K/uL (152-406) L 08/05/19 04:41 PT 12.8 SECONDS (9.5-12.5) H 08/04/19 12:50 INR 1.09 08/04/19 12:50 APTT 27.4 SECONDS (24.3-36.9) 08/04/19 12:50 Sodium 134 mmol/L (136-145) L 08/05/19 04:41 Potassium 4.6 mmol/L (3.5-5.1) 08/05/19 04:41 BUN 46 mg/dL (7-18) H 08/05/19 04:41 Creatinine 1.31 mg/dL (0.55-1.3) H 08/05/19 04:41 Glucose 142 mg/dL (74-106) H 08/05/19 04:41 Phosphorus 4.1 mg/dL (2.5-4.9) 07/30/19 04:52 Magnesium 2.6 mg/dL (1.8-2.4) H 08/05/19 04:41 Total Bilirubin 0.8 mg/dL (0.2-1.0) 08/01/19 05:50 AST 81 U/L (15-37) H 08/01/19 05:50 ALT 60 U/L (12-78) 08/01/19 05:50 Alkaline Phosphatase 272 U/L (45-117) H 08/01/19 05:50 Troponin I < 0.02 ng/mL (0.0-0.045) 07/30/19 21:05 Lipase 50 U/L (73-393) L 08/04/19 10:55 Home Medications: Albuterol Sulfate [Ventolin Hfa] 2 puff IH QID PRN 06/11/18 Aspirin [Aspirin EC 81 MG] 81 mg PO DAILY 06/11/18 Hydrocodone/Acetaminophen [Hydrocodone-Acetamin 7.5-325] 1 tab PO QID 06/11/18 Losartan Potassium 100 mg PO DAILY 06/11/18 Montelukast [Singulair*] 10 mg PO BID 06/11/18 Roflumilast [Daliresp*] 500 mcg PO DAILY 06/11/18 Tizanidine [Zanaflex*] 4 mg PO BID 06/11/18 Arformoterol Tartrate [Brovana] 15 mcg NEB BIDRESP #1 vial.neb 06/18/18 Furosemide [Lasix*] 40 mg PO DAILY #30 tab 06/18/18 clonazePAM [Clonazepam] 0.5 mg PO BIDP PRN 07/30/19 predniSONE [Deltasone*] 10 mg PO DAILY 07/30/19 Patient Discharge Instructions: Patient . May he rest in peace. Time spent managing pt's care (in minutes): 55
[2019-08-05] MEDS ORDERED: ARFORMOTEROL TARTRATE 15 MCG/2 ML VIAL.NEB IH SCH (20:00)
[2019-08-05] MEDS ORDERED: DOXYCYCLINE 100 MG CAP PO SCH (21:00)
[2019-08-05] MEDS ORDERED: Meropenem 1000 MG/VIAL IV SCH (21:00)
--- NOTE | 2019-08-05 21:07 | P.PN ---
Subjective Date of Service: 08/05/19 Primary Care Provider: Dr. Sexton Chief Complaint: Low back pain shortness of breath Pt seen and examined at 13:10 Pt with chronic backpain, found to have bone and liver lesions, Cr elevated to 1.3 Today complaining of back pain have mild dyspnea, cont to be on NC Cr stable , will start gentle hydration plan for possible liver biopsy on Thursday Review of Systems Musculoskeletal: Back Pain Physical Examination - Vital Signs Temperature: 97 F Blood Pressure: 86/64 Pulse: 94 Respirations: 16 Pulse Ox (%): 96 - Physical Exam General: In no apparent distress, Oriented x3 HEENT: Atraumatic, Normocephalic Neck: Supple, Without JVD or thyroid abnormality Respiratory: Diminished Cardiovascular: No edema, Normal S1 S2, No gallops, No rubs, No murmurs Gastrointestinal: Normal bowel sounds, Soft and benign, Non-distended, No ascites, No tenderness Musculoskeletal: No swelling, No erythema, No tenderness Integumentary: No rashes Neurological: Normal gait - Studies Medications List Reviewed: Yes Assessment And Plan - Plan ERIN on CKD possibly due to prerenal azotemia will start gentle hydraion CKD due to HTN nephrosclerosis off ARB Abd CT no hydro renal dose meds AVoid NSAID CODP excaerbation inhalers and setroids Lactic acidosis possibly due albuterol cont to trend and monitor Bone and liver mets Oncology on baord plan for possible liver biopsy Prognosis guarded
[2019-08-09 16:16] LABS: Albumin, (SPE) 2.2 g/dL (3.8-4.8); Alpha-1-Globulins 0.7 g/dL (0.2-0.3); Alpha-2-Globulins 0.9 g/dL (0.5-0.9); Gamma Globulins 0.6 g/dL (0.8-1.7); INTERPRETATION REPORT
== END 2019-08-05 20:15 | disposition expired | DRG 871 ==
LOC: ER 19:09 → ERHOLD 22:12 → 3RD-ICU 22:50 → 2ND 07-31 14:20 → 3RD-ICU 08-01 06:26 → 4TH 08-03 12:37
PROVIDERS: ADMIT Family Medicine; ATTEND Family Medicine
DX: A41.9 Sepsis, unspecified organism (principal); I50.33 Acute on chronic diastolic (congestive) heart failure; J96.21 Acute and chronic respiratory failure with hypoxia; J18.9 Pneumonia, unspecified organism; J44.1 Chronic obstructive pulmonary disease with (acute) exacerbation; N17.9 Acute kidney failure, unspecified; E87.2 Acidosis; C79.51 Secondary malignant neoplasm of bone; C78.7 Secondary malignant neoplasm of liver and intrahepatic bile duct; I46.9 Cardiac arrest, cause unspecified; I11.0 Hypertensive heart disease with heart failure; M54.42 Lumbago with sciatica, left side; M54.41 Lumbago with sciatica, right side; G89.29 Other chronic pain; R65.20 Severe sepsis without septic shock; F41.1 Generalized anxiety disorder; K21.9 Gastro-esophageal reflux disease without esophagitis; D63.8 Anemia in other chronic diseases classified elsewhere; I95.9 Hypotension, unspecified; N18.3 Chronic kidney disease, stage 3 (moderate); D69.6 Thrombocytopenia, unspecified; Z79.52 Long term (current) use of systemic steroids
CPT/HCPCS: 36415; 36430; 71045; 71250; 72158; 74018; 74176; 80048; 80053; 80076; 80202; 81003; 81015; 82550; 82553; 82805; 82947; 83010; 83605; 83615; 83690; 83735; 84100; 84145; 84153; 84165; 84484; 85014; 85018; 85025; 85610; 85730; 86850; 86900; 86901; 87040; 87070; 87205; 93005; 94760; 97112; 97116; 97161; 97530; 99285; A9577; J0171; J0692; J1100; J1170; J1265; J1450; J1650; J1720; J1940; J2270; J2310; J2405; J2543; J2920; J7030; J7040; J7060; J7512; J7605; P9016